=== PATIENT | female | born 1940 | race Caucasian/White ===

== ENCOUNTER → 2017-02-26 | Outpatient (CLI) | payer OTHER ==
[~2017-02-26] MED LIST: APIX1TAB3 PO; ASCA500 PO; ATV5 PO; DILT1TAB50 PO; HYG/25 PO; LOSA50TA6 PO; MULT-11 PO; PRT40 PO
== END | disposition home or self-care (01) ==
LOC: C.RDSM 09:00
PROVIDERS: ATTEND Physical Medicine & Rehabilitation Sports Medicine
DX: M79.672 Pain in left foot (principal)

== ENCOUNTER → 2017-03-27 | Day surgery (SDC) | payer OTHER ==
[2017-03-09 07:35] VITALS: Ht 158.8 cm; Wt 52.3 kg
[~2017-03-27] VITALS: Ht 158.8 cm; Wt 52.3 kg
[~2017-03-27] MED LIST changes: +ATROPINE SULFATE 0.1 MG/ML 5ML SYR IV PRN; -ATV5 PO; +BUPIVACAINE 0.5 % 5 MG/1 ML PF 10ML VIAL ONE; +DEXAMETHASONE SOD INJ 4 MG/ML VIAL ONE; +EpHEDrine SULFATE INJ 50 MG/ML AMP IV PRN; +FENTANYL CITRATE INJ 50 MCG/1 ML 2 ML VIAL IV PRN; +FENTANYL CITRATE INJ 50 MCG/1 ML 2 ML VIAL ONE; -HYG/25 PO; +LACTATED RINGER'S 1000ML 1,000 ML IV SCH; +LIDOCAINE HCL 2% LOCAL 20 ML VIAL ONE; +MIDAZOLAM HCL 1 MG/ML 2ML VIAL ONE; +ONDANSETRON INJ 2 MG/ML 2 ML VIAL IV PRN; +ONDANSETRON INJ 2 MG/ML 2 ML VIAL ONE; +PROPOFOL IV EMULSION 10 MG/ML 20 ML VIAL IV ONE; -PRT40 PO; +VANCOMYCIN INJ 750 MG in SODIUM CHLORIDE 0.9% 250ML 250 ML IV SCH
--- NOTE | 2017-03-27 08:52 | History & Physical Bridge Note ---
H&P Re-Evaluation Bridge Note: I have examined the patient, reviewed the History & Physical and in the interval since the performance of the History & Physical I have noted the following changes of clinical significance: consent reviewed and obtained.No changes noted
--- NOTE | 2017-03-27 08:54 | Discharge Instructions ---
Discharge Instructions Date of Service Mar 27, 2017. Visit Reason for Visit: Left 2ND Toe Hammer Deformity Discharge Discharge Diagnosis / Problem: same Discharge Goals Goal(s): Decrease discomfort, Improve function Medications Stopped Medications Name(s): reny stopped on sunday Restart Stopped Medication(s): resume all meds tomorrow Activity Recommendations Activity Limitations: as noted below Lifting Limitations: until after follow-up appointment Exercise/Sports Limitations: until after follow-up appointment May Resume Sexual Activity: when tolerated Shower/Bathe: keep incision dry Driving or Machine Use: no limitations Weightbearing Status: Left weightbearing (as tolerated) Anesthesia . Post Anesthesia Instructions: If you have had General Anesthesia or IV Sedation: * Do not drive today. * Resume driving when surgeon permits. * Do not make important decisions or sign legal documents today. * Call surgeon for: 1. Temperature elevations greater than 101 degrees F. 2. Uncontrollable pain. 3. Excessive bleeding. 4. Persistent nausea and vomiting. 5. Medication intolerance (nausea, vomiting or rash). * For nausea and vomiting use only clear liquids such as: tea, soda, bouillon until nausea subsides, then gradually increase diet as tolerated. * If you have any concerns or questions, call your surgeon's office. If physician is unavailable and it is an emergency, call 911 or go to the nearest emergency room. . Instructions / Follow-Up Instructions / Follow-Up DIET: * Resume previous diet. MEDICATIONS: * Please take your prescriptions as instructed at your pre-op appointment and/ or see medication discharge instructions listed above. * If concerns develop, call your physician's office at . SPECIAL CARE INSTRUCTIONS: * Ice/Elevate as instructed. * Keep dressing clean, dry, intact. * Your surgical extremity may be discolored due to prepping agents used on the skin. A bluish-green tint is a normal variant and should not cause alarm. Call your doctor at [phone] if: * Temperature above 101 degrees * Pain not relieved by pain medicine ordered * There is increased drainage or redness from any incision * You have any unanswered questions, problems or concerns. FOLLOW UP VISIT: * If not already scheduled, please call the office at to schedule a follow-up appointment. Diet Recommendations Recommended Home Diet: resume previous diet Procedures Procedures Performed: see op note Pending Studies Studies pending at discharge: yes List of pending studies: toe Medical Emergencies . Who to Call and When: Medical Emergencies: If at any time you feel your situation is an emergency, please call 911 immediately. . Non-Emergent Contact Non-Emergency issues call your: Specialist Call Non-Emergent contact if: temperature is above 100.5, wound has increased drainage, wound has increased redness, wound has increased pain . . "Provider Documentation" section prepared by Angel Payan. .
--- NOTE | 2017-03-27 10:51 | [facility] Post Operative Brief Note ---
Immediate Operative Summary Operative Date Mar 27, 2017. Pre-Operative Diagnosis Left 2nd Toe Pain Post-Operative Diagnosis Same Procedure(s) Performed Left 2nd Toe Amputation Surgeon Dr. Payan Waxer Tender Surgeon(s) Tee Ortiz PA-C Estimated Blood Loss Trace Findings fixed hammer/cross-over toe with IK Fluids (cc crystalloids) 600cc Specimens A. Left 2nd Toe Drains none Anesthesia local/sedation Complication(s) None Disposition
[2017-03-27 10:59] VITALS: TEMP 36.7
--- NOTE | 2017-03-27 11:33 | OPERATIVE REPORT ---
DATE OF OPERATION: 03/27/2017 SURGEON: Angel Payan MD BLOOD BANK ASSISTANT: Jayme Ortiz PA-C. No resident or fellow available. PREOPERATIVE DIAGNOSIS: Fixed hammer clawtoe with intractable keratosis. POSTOPERATIVE DIAGNOSIS: Same. OPERATION PERFORMED: Left second toe amputation. PERIOPERATIVE SITUATION: Medically cleared female with intractable pain and keratosis over the second toe has a fixed hammer claw toe. At this point in time wants to have it amputated. Options were discussed with her. She clearly did not want to deal with protracted recovery of trying to realign and save the toe. She had a similar procedure done on the opposite foot third toe. OPERATION: The patient appropriately identified, site verified, consent verified, 2 grams of Ancef confirmed as being given. The left lower extremity was prepped and draped in usual routine fashion. A calf tourniquet was applied and elevated and exsanguinated after the limb was exsanguinated with a rubber Esmarch bandage for a total of 6 minutes. It should be mentioned that combined volume 10 mL of 0.5% plain Marcaine was utilized for toe block. She did have some IV sedation. A longitudinal incision made. The MTP joint entered. The proximal phalanx was then skeletonized and removed. The toe was then completely amputated maintaining enough skin. Care was taken to cauterize the vessels. The tourniquet was then deflated. The wound was then assessed. There was no major bleeding. It was then closed with simple and horizontal mattress 3-0 nylon sutures and a soft tissue dressing applied and the patient transferred to the holding area in satisfactory condition having tolerated the procedure well. No specimens sent to pathology. There will be no issue with the toe being infected or anything like that. This was done purely for pain and cosmesis. I attest to the content of the Intraoperative Record and any orders documented therein. Any exception s are noted below.
[2017-03-27 11:38] VITALS: BP 117/78; PULSE 83; O2SAT 93
--- NOTE | 2017-03-27 11:57 | Anesthesia Progress Nt - [facility] ---
Anesthesia Post Op Note Date & Time Mar 27, 2017 at 11:57 Vital Signs Pain Intensity: 0 Vital Signs Past 12 Hours Date Time Temp Pulse Resp B/P (MAP) Pulse Ox O2 Delivery O2 Flow Rate FiO2 03/27/17 11:38 83 20 117/78 (91) 93 Room Air 03/27/17 10:59 36.7 76 16 122/71 (88) 97 Room Air 03/27/17 08:43 36.8 96 18 133/94 (107) 98 Room Air Notes Mental Status: alert / awake / arousable, participated in evaluation Pt Amnestic to Procedure: Yes Nausea / Vomiting: adequately controlled Pain: adequately controlled Airway Patency, RR, SpO2: stable & adequate BP & HR: stable & adequate Hydration State: stable & adequate Anesthetic Complications: no major complications apparent
--- NOTE | 2017-03-27 13:34 | [facility] Operative Report ---
Operative Report Operative Date Mar 27, 2017. Pre-Operative Diagnosis Left 2nd Toe Pain Post-Operative Diagnosis Same Procedure(s) Performed Left 2nd Toe Amputation Surgeon Dr. Payan Manager General Surgeon(s) Tee Ortiz PA-C Estimated Blood Loss Trace Findings Hammertoe left second toe Fluids (cc crystalloids) 600cc Specimens A. Left 2nd Toe Drains none Complication(s) None Disposition phase 2 recovery Indications This 76-year-old white female presented the office complaints of left foot pain at her second toe. She had an obvious deformity with an overriding second toe and hammer deformity. She previously had her second toe removed from the right foot and did well with that. She elected to proceed with the same on the left. Preoperative imaging was obtained. Description of Procedure Patient was taken to the operating room where she was given local anesthetic and sedation. She was prepped and draped in usual sterile fashion. Please see Dr. Payan's operative report for specifics of the procedure. I was present for the entire case from initial patient positioning through final wound closure. Assistance was provided in tissue traction, hemostasis, and final wound closure. Patient was taken to phase 2 recovery in satisfactory condition. I attest to the content of the Intraoperative Record and any orders documented therein. Any exceptions are noted below.
== END | disposition home or self-care (01) ==
LOC: X.SURG 08:33
PROVIDERS: ATTEND Physical Medicine & Rehabilitation Sports Medicine
DX: M20.5X2 Other deformities of toe(s) (acquired), left foot (principal); L57.0 Actinic keratosis; I10 Essential (primary) hypertension; I48.91 Unspecified atrial fibrillation; I34.1 Nonrheumatic mitral (valve) prolapse; Z89.421 Acquired absence of other right toe(s); Z87.891 Personal history of nicotine dependence; Z80.3 Family history of malignant neoplasm of breast; Z82.49 Family history of ischemic heart disease and other diseases of the circulatory system

== ENCOUNTER 2022-08-01 21:30 | Inpatient (IN) ==
--- NOTE | 2022-08-01 22:59 | XRay Report ---
SINGLE VIEW CHEST CLINICAL HISTORY: Atypical chest pain. Recent surgery. FINDINGS: An AP, portable, upright chest radiograph is compared to study dated 06/18/2022 and correlat ed with chest CT dated 05/26/2022. A 2-lead cardiac pacemaker is unchanged in position and partially o bscures the left mid chest. The heart is enlarged noting atherosclerotic calcification of the thoraci c aorta. There is pulmonary vascular congestion. Emphysema and chronic interstitial thickening is sim ilar to previous. There are small pleural effusions with left basilar consolidation. Suture material projects over the left mid lung. There is a moderate left apical pneumothorax with consolidation/atel ectasis in the left midlung. No pneumothorax is seen on the right. The skeletal structures are osteop enic. The bony thorax is grossly intact. Subcutaneous emphysema is seen in the left lower neck and th roughout the left chest wall. IMPRESSION: 1. There is a moderate left apical pneumothorax with consolidation/atelectasis in the left mid lung. 2. Cardiomegaly and cardiac pacemaker with pulmonary vascular congestion. 3. Small pleural effusions with left basilar consolidation. Correlate clinically for evidence of pneu monia/aspiration pneumonitis. 4. Emphysema with postoperative change in the left lung. 5. Subcutaneous emphysema is seen in the left lower neck and throughout the left chest wall. ACT 112: Negative or not required by law. Electronically signed by: Dallas Dhillon M.D. 08/01/2022 10:57 PM
--- NOTE | 2022-08-01 23:02 | Emergency Department Note ---
Impression & Plan Hypoxia ADMIT ED Provider Note HPI: The patient is an 81-year-old female with history of recently diagnosed adenocarcinoma of the lung, status post robotic partial lung resection on the left side that was performed this past at [facility]. Patient presents the emergency department with a chief complaint of shortness of breath that seem to worsen throughout the day today. This was occurring mostly with exertion until later this evening when she went on a walk, shortness of breath seem to be worse and then she had also at rest and therefore came to the ED to be assessed. On arrival here to the ED the patient is hypoxic at 88%, she was placed on nasal cannula oxygen with good improvement. Patient denies any chest pain, she is otherwise hemodynamically stable on arrival. ROS: - Per HPI *Outpatient medications and allergy history reviewed. *Pertinent external medical records reviewed. PE: General: Alert HEENT: Normocephalic, trachea midline Eyes: Extraocular eye movement is intact, no scleral erythema Pulmonary: Clear to auscultation on the right, diminished breath sounds on the left Cardio: Regular rate and rhythm GI: Abdomen is soft to palpation : No suprapubic tenderness MSK: No evidence of trauma or malformation of the extremities, no edema Skin: No evidence of rash Neuro: Alert, no focal deficits Psychiatric: Cooperative cardiac monitor technician: (As interpreted by myself): - An order was placed for continuous cardiac monitoring - Patient was noted to be in sinus rhythm with a rate of 75 EKG: (As interpreted by myself): Rate: 104 Rhythm: Atrial fibrillation Intervals: Within normal limits ST changes: No ST elevation Time: 2215 Interventions provided in ED: -Supplemental oxygen Differential Diagnosis: Pulmonary embolism, pneumothorax, hemothorax, acute coronary syndrome, pneumonia, pleural effusion, amongst other potential pathologies. Medical Decision Making: Patient presented to the emergency department with shortness of breath. This is in the setting of recent surgery that was performed on 07/27 at [facility] by Dr. Herrmann. On arrival here to the ED the patient was hypoxic at 88%, placed on nasal cannula oxygen with good improvement. Chest x-ray was obtained shortly after the patient arrived, shows evidence of a left-sided apical pneumothorax, patient surgery was on the left apical area of the lung where she was noted to have the adenocarcinoma, CT imaging of the chest without contrast was obtained to further assess the area of concern, this does show evidence of approximately 40% hydropneumothorax. No evidence of midline shift, mild pneumomediastinum noted. Unclear how much of this may be expected postoperatively, there is also extensive subcutaneous emphysema in the lateral chest wall and near the apex of the area that used to be the left lung. This is not grossly obvious on my exam visually but patient does have some crepitus in this area with palpation. Patient's lab work otherwise shows no leukocytosis, hemoglobin is stable, platelet count is within normal limits. VBG shows a normal pH without elevation in PCO2, mild elevation in troponin level at 19.0, hyponatremia noted at 123, mild elevation in BNP at 327. Case was discussed with on-call thoracic surgery at [facility], Dr. De Dios, at this time recommends the patient be admitted for observation and repeat imaging overnight to assess for improvement potentially in the area of concern causing the hydro/pneumothorax. At this time recommends against pigtail catheter placement prior to obtaining repeat imaging overnight as the patient is currently on Eliquis and some of these findings may be expected postoperatively. At this time Dr. De Dios does not recommend emergent transfer, thinks it would be better for the patient to be here on the monitor for assessment of respiratory status overnight with plan to place pigtail catheter if her respiratory status were to worsen or if pneumothorax increased in size overnight. Case was discussed with the on-call midlevel provider for the ICU, Juarez Larios NP, also therefore discussed with the on-call hospitalist, Dr. Laguerre. At this time plan will be for the patient to be admitted to the ICU for observation overnight, will plan for repeat imaging in the morning and close observation of the patient's oxygen status and respiratory status with plan for placement of pigtail catheter if there is any evidence of decompensation. Patient states she did take her Eliquis dose this past evening. I discussed all the above findings with the patient and her at the bedside, they are in agreement for admission here at [facility]. Patient was placed for admission in stable condition for further management. Consultants: -Critical care, Dr. Mclain/Juarez Larios [employer] -Cardiothoracic surgery at [facility], Dr. De Dios -Hospitalist, Dr. Laguerre Disposition discussion held by myself with: Patient and at the bedside * CRITICAL CARE TIME: (75) minutes -Stabilization of hypoxia with oxygen saturation at 88% on room air requiring supplemental oxygen for correction, time spent at the bedside, discussion with multiple consulting physicians including hospitalist and cardiothoracic surgery at tertiary care center, consultation with critical care nurse practitioner and arrangement of admission Diagnosis: 1. Hypoxia, acute 2. Hydropneumothorax, left-sided, postoperative 3. Subcutaneous emphysema of left-sided chest wall, acute, postoperative 4. Elevated high-sensitivity troponin level, mild 5. Hyponatremia, acute, nonspecific 6. History of atrial fibrillation, on anticoagulation Disposition: Admission Carlos Looney DO Emergency Medicine Past Med/Surg History Medical History (Updated 08/02/22 @ 01:57 by CHANCE Chang) Atrial fibrillation on eliquis; follows with Dr. Gómez & Dr. Abreu Family history of colon cancer GERD (gastroesophageal reflux disease) History of breast cancer dx'd 2019 - right breast - hx lumpectomy + radiation History of migraine HTN (hypertension) Hyperlipidemia IBS (irritable bowel syndrome) Osteoporosis Scoliosis SVT (supraventricular tachycardia) Surgical History (Updated 08/02/22 @ 01:53 by CHANCE Chang) H/O breast surgery History of appendectomy History of cardiac radiofrequency ablation x 2 History of colonoscopy History of esophagogastroduodenoscopy (EGD) S/P bunionectomy S/P cardiac pacemaker procedure 2014 - A.fib - [facility] - last check 02/2021 per pt S/P eye surgery macular hole Status post lobectomy of lung Family History Mother Breast cancer Colorectal cancer Aunt Breast cancer Colorectal cancer Sister Breast cancer Colorectal cancer Father Myocardial infarction Other Family history of colon cancer No family history of adverse response to anesthesia Denies family history of Ovarian cancer Prostate cancer Social History Smoking Status: Former smoker packs per day: 0.5; Cigarettes Per Day: 20 yr for 1/5 pack per day; Smoking End Date: 35 years ago; Second Hand Exposure: No; Hx Alcohol Use: Yes Alcohol type: wine Alcohol Intake Frequency Comment: social Hx Substance Use: No Preferred Language: Romanian Communication Ability: Effective Visual Impairment: No Limitations Hearing Ability: Normal Materials Inspector Required: No Beliefs That Will Affect Care: None marital status: Current Living Situation: Spouse Feels Safe at Home: Yes Safety Concerns: Feels Safe At This Time Seatbelt Use: always Assistive Devices: Glasses Allergies Allergies Allergy/AdvReac Type Severity Reaction Status Date / Time Penicillins AdvReac Intermediate GI UPSET Verified 08/01/22 23:56 Home Meds Home Medications Medication Instructions Recorded Confirmed apixaban 5 mg tablet (Eliquis) 5 mg PO BID 09/27/21 08/02/22 losartan 50 mg tablet 50 mg PO DAILY 04/18/22 08/02/22 acetaminophen 500 mg tablet 1,000 mg PO Q8H 08/01/22 08/02/22 (Tylenol Extra Strength) gabapentin 300 mg capsule 300 mg PO TID 08/01/22 08/02/22 multivitamin 1 tab PO DAILY 08/01/22 08/02/22 naproxen 250 mg tablet 250 mg PO BID 08/01/22 08/02/22 oxycodone 5 mg tablet 2.5 mg PO Q4H PRN Pain (Scale 08/01/22 08/02/22 Score 4-6) sennosides 8.6 mg-docusate sodium 1 tab-cap PO BID 08/01/22 08/02/22 50 mg capsule (Senna Plus) mupirocin 2 % topical ointment 1 applic topical BID PRN Skin 08/02/22 08/02/22 Irritation Previous Rx's Medication Instructions Recorded brinzolamide 1 %-brimonidine 0.2 % 1 drp ophthalmic (eye) BID #8 mL 09/27/21 eye drops,suspension (Simbrinza) rosuvastatin 20 mg tablet 20 mg PO QPM #90 tabs 01/31/22 diltiazem HCl 120 mg 120 mg PO DAILY #90 caps 05/24/22 capsule,extended release 24 hr Results & Data (ED) Vital Signs Vital Signs - 24 hr 08/01/22 21:39 08/01/22 22:15 08/02/22 00:00 Temperature 36.9 C Temperature Source Temporal Artery Scan Pulse Rate 93 H Pulse Rate [Finger] 85 Pulse Rate from SpO2 Sensor Respiratory Rate 18 18 Respiratory Depth Normal Blood Pressure 170/109 H Blood Pressure [Right Arm] 171/95 H Blood Pressure Mean 129 Blood Pressure Mean [Right Arm] 120 Pulse Oximetry 88 L 78 L 95 Oxygen Delivery Method Room Air Room Air Nasal Cannula Oxygen Flow Rate 0 4 Sepsis Recent Fever Within 48 Hours No Sepsis New/Unexplained Change in Mental Status N/A Sepsis Action Taken by Nursing No Action Required Oxygen Flow Rate - Titration 4 Pulse Oximetry Post Tiitration 96 08/02/22 00:08 08/02/22 00:07 08/02/22 00:08 Temperature Temperature Source Pulse Rate 87 Pulse Rate [Finger] Pulse Rate from SpO2 Sensor 83 Respiratory Rate 20 Respiratory Depth Blood Pressure Blood Pressure [Right Arm] Blood Pressure Mean Blood Pressure Mean [Right Arm] Pulse Oximetry 94 94 Oxygen Delivery Method Nasal Cannula Oxygen Flow Rate 4 Sepsis Recent Fever Within 48 Hours Sepsis New/Unexplained Change in Mental Status Sepsis Action Taken by Nursing Oxygen Flow Rate - Titration Pulse Oximetry Post Tiitration 08/02/22 00:15 08/02/22 00:30 08/02/22 00:30 Temperature Temperature Source Pulse Rate 82 Pulse Rate [Finger] Pulse Rate from SpO2 Sensor 83 77 Respiratory Rate 26 H 18 Respiratory Depth Blood Pressure 157/97 H Blood Pressure [Right Arm] Blood Pressure Mean 117 Blood Pressure Mean [Right Arm] Pulse Oximetry 94 93 Oxygen Delivery Method Oxygen Flow Rate Sepsis Recent Fever Within 48 Hours Sepsis New/Unexplained Change in Mental Status Sepsis Action Taken by Nursing Oxygen Flow Rate - Titration Pulse Oximetry Post Tiitration 08/02/22 00:45 Temperature Temperature Source Pulse Rate 71 Pulse Rate [Finger] Pulse Rate from SpO2 Sensor 77 Respiratory Rate 15 Respiratory Depth Blood Pressure Blood Pressure [Right Arm] Blood Pressure Mean Blood Pressure Mean [Right Arm] Pulse Oximetry 93 Oxygen Delivery Method Oxygen Flow Rate Sepsis Recent Fever Within 48 Hours Sepsis New/Unexplained Change in Mental Status Sepsis Action Taken by Nursing Oxygen Flow Rate - Titration Pulse Oximetry Post Tiitration Laboratory Data 08/01/22 22:30 08/01/22 22:30 Lab Results 08/01/22 08/01/22 08/01/22 Range/Units 22:30 22:30 22:30 WBC 5.88 (4.8-10.8) K/ul RBC 3.59 L (4.20-5.40) M/uL Hgb 12.7 (12.0-16.0) g/dl Hct 35.3 L (37.0-47.0) % MCV 98.3 (80.0-100.0) fL MCH 35.4 H (25.0-34.0) pg MCHC 36.0 (32.0-36.0) g/dL RDW Std Deviation 48.6 H (36.4-46.3) fL RDW Coeff of [place] 13.3 (11.5-14.5) % Plt Count 156 (130-400) K/uL MPV 9.5 (9.4-12.4) fL Immature Gran % (Auto) 0.5 % Neut % (Auto) 74.8 % Lymph % (Auto) 10.9 % Edgar % (Auto) 10.4 % Eos % (Auto) 3.2 % Baso % (Auto) 0.2 % Neut # (Auto) 4.40 (1.40-6.50) K/uL Lymph # (Auto) 0.64 L (1.2-3.4) K/uL Edgar # (Auto) 0.61 H (0.11-0.59) K/uL Eos # (Auto) 0.19 (0-0.50) K/uL Baso # (Auto) 0.01 (0-0.2) K/uL Immature Gran # (Auto) 0.03 (0.01-0.20) K/uL PT 12.0 (9.0-12.0) Seconds INR 1.1 (0.9-1.1) APTT 34.2 H (21.0-31.0) Seconds PTT Ratio 1.2 VBG pH (7.36-7.41) VBG pCO2 (38-50) mmHg VBG pO2 mmHg VBG HCO3 mmol/L VBG O2 Saturation % VBG Base Excess mEq/L Sodium 123 L (136-145) mmol/L Potassium 4.3 (3.5-5.1) mmol/L Chloride 92 L (98-107) mmol/L Carbon Dioxide 25 (21-32) mmol/L Anion Gap 6 (3-11) BUN 15 (6-23) mg/dl Creatinine 0.58 L (0.6-1.2) mg/dl Est Cr Clr Drug Dosing 55.5 ml/min Est GFR ( Amer) 98.8 ml/min Est GFR (Non-Af Amer) 85.2 ml/min BUN/Creatinine Ratio 25.9 H (10-20) Glucose 95 (70-99(Fasting)) mg/dl Osmolality (280-300) mOsm/kg Calcium 9.0 (8.6-10.3) mg/dl Magnesium 1.6 L (1.7-2.4) mg/dl Total Bilirubin 0.7 (0.2-1.0) mg/dl AST 42 H (13-39) U/L ALT 34 (7-52) U/L Alkaline Phosphatase 115 H (34-104) U/L Troponin I High Sens 19.0 H (0-14) pg/ml B-Natriuretic Peptide (0-100) pg/ml Total Protein 5.5 L (6.0-8.3) gm/dl Albumin 3.4 (3.4-5.0) gm/dl Globulin 2.1 L (2.5-4.0) gm/dl Albumin/Globulin Ratio 1.6 (0.9-2) SARS-CoV-2 (PCR) (Negative) Influenza Type A (PCR) (Neg) Influenza Type B (PCR) (Neg) RSV (RT-PCR) (Neg) 08/01/22 08/01/22 08/01/22 Range/Units 22:30 22:30 22:30 WBC (4.8-10.8) K/ul RBC (4.20-5.40) M/uL Hgb (12.0-16.0) g/dl Hct (37.0-47.0) % MCV (80.0-100.0) fL MCH (25.0-34.0) pg MCHC (32.0-36.0) g/dL RDW Std Deviation (36.4-46.3) fL RDW Coeff of [place] (11.5-14.5) % Plt Count (130-400) K/uL MPV (9.4-12.4) fL Immature Gran % (Auto) % Neut % (Auto) % Lymph % (Auto) % Edgar % (Auto) % Eos % (Auto) % Baso % (Auto) % Neut # (Auto) (1.40-6.50) K/uL Lymph # (Auto) (1.2-3.4) K/uL Edgar # (Auto) (0.11-0.59) K/uL Eos # (Auto) (0-0.50) K/uL Baso # (Auto) (0-0.2) K/uL Immature Gran # (Auto) (0.01-0.20) K/uL PT (9.0-12.0) Seconds INR (0.9-1.1) APTT (21.0-31.0) Seconds PTT Ratio VBG pH (7.36-7.41) VBG pCO2 (38-50) mmHg VBG pO2 mmHg VBG HCO3 mmol/L VBG O2 Saturation % VBG Base Excess mEq/L Sodium (136-145) mmol/L Potassium (3.5-5.1) mmol/L Chloride (98-107) mmol/L Carbon Dioxide (21-32) mmol/L Anion Gap (3-11) BUN (6-23) mg/dl Creatinine (0.6-1.2) mg/dl Est Cr Clr Drug Dosing ml/min Est GFR ( Amer) ml/min Est GFR (Non-Af Amer) ml/min BUN/Creatinine Ratio (10-20) Glucose (70-99(Fasting)) mg/dl Osmolality 263 L (280-300) mOsm/kg Calcium (8.6-10.3) mg/dl Magnesium (1.7-2.4) mg/dl Total Bilirubin (0.2-1.0) mg/dl AST (13-39) U/L ALT (7-52) U/L Alkaline Phosphatase (34-104) U/L Troponin I High Sens (0-14) pg/ml B-Natriuretic Peptide 327 H (0-100) pg/ml Total Protein (6.0-8.3) gm/dl Albumin (3.4-5.0) gm/dl Globulin (2.5-4.0) gm/dl Albumin/Globulin Ratio (0.9-2) SARS-CoV-2 (PCR) NEGATIVE (Negative) Influenza Type A (PCR) Negative (Neg) Influenza Type B (PCR) Negative (Neg) RSV (RT-PCR) Negative (Neg) 08/01/22 Range/Units 23:00 WBC (4.8-10.8) K/ul RBC (4.20-5.40) M/uL Hgb (12.0-16.0) g/dl Hct (37.0-47.0) % MCV (80.0-100.0) fL MCH (25.0-34.0) pg MCHC (32.0-36.0) g/dL RDW Std Deviation (36.4-46.3) fL RDW Coeff of [place] (11.5-14.5) % Plt Count (130-400) K/uL MPV (9.4-12.4) fL Immature Gran % (Auto) % Neut % (Auto) % Lymph % (Auto) % Edgar % (Auto) % Eos % (Auto) % Baso % (Auto) % Neut # (Auto) (1.40-6.50) K/uL Lymph # (Auto) (1.2-3.4) K/uL Edgar # (Auto) (0.11-0.59) K/uL Eos # (Auto) (0-0.50) K/uL Baso # (Auto) (0-0.2) K/uL Immature Gran # (Auto) (0.01-0.20) K/uL PT (9.0-12.0) Seconds INR (0.9-1.1) APTT (21.0-31.0) Seconds PTT Ratio VBG pH 7.39 (7.36-7.41) VBG pCO2 42 (38-50) mmHg VBG pO2 39 mmHg VBG HCO3 25 mmol/L VBG O2 Saturation 66.9 % VBG Base Excess 0.3 mEq/L Sodium (136-145) mmol/L Potassium (3.5-5.1) mmol/L Chloride (98-107) mmol/L Carbon Dioxide (21-32) mmol/L Anion Gap (3-11) BUN (6-23) mg/dl Creatinine (0.6-1.2) mg/dl Est Cr Clr Drug Dosing ml/min Est GFR ( Amer) ml/min Est GFR (Non-Af Amer) ml/min BUN/Creatinine Ratio (10-20) Glucose (70-99(Fasting)) mg/dl Osmolality (280-300) mOsm/kg Calcium (8.6-10.3) mg/dl Magnesium (1.7-2.4) mg/dl Total Bilirubin (0.2-1.0) mg/dl AST (13-39) U/L ALT (7-52) U/L Alkaline Phosphatase (34-104) U/L Troponin I High Sens (0-14) pg/ml B-Natriuretic Peptide (0-100) pg/ml Total Protein (6.0-8.3) gm/dl Albumin (3.4-5.0) gm/dl Globulin (2.5-4.0) gm/dl Albumin/Globulin Ratio (0.9-2) SARS-CoV-2 (PCR) (Negative) Influenza Type A (PCR) (Neg) Influenza Type B (PCR) (Neg) RSV (RT-PCR) (Neg) Imaging Data Radiologist's Impression: Chest X-Ray 08/01/22 21:42 SINGLE VIEW CHEST CLINICAL HISTORY: Atypical chest pain. Recent surgery. FINDINGS: An AP, portable, upright chest radiograph is compared to study dated 06/18/2022 and correlated with chest CT dated 05/26/2022. A 2-lead cardiac pacemaker is unchanged in position and partially obscures the left mid chest. The heart is enlarged noting atherosclerotic calcification of the thoracic aorta. There is pulmonary vascular congestion. Emphysema and chronic interstitial thickening is similar to previous. There are small pleural effusions with left basilar consolidation. Suture material projects over the left mid lung. There is a moderate left apical pneumothorax with consolidation/atelectasis in the left midlung. No pneumothorax is seen on the right. The skeletal structures are osteopenic. The bony thorax is grossly intac t. Subcutaneous emphysema is seen in the left lower neck and throughout the left chest wall. IMPRESSION: 1. There is a moderate left apical pneumothorax with consolidation/atelectasis in the left mid lung. 2. Cardiomegaly and cardiac pacemaker with pulmonary vascular congestion. 3. Small pleural effusions with left basilar consolidation. Correlate clinically for evidence of pneumonia/aspiration pneumonitis. 4. Emphysema with postoperative change in the left lung. 5. Subcutaneous emphysema is seen in the left lower neck and throughout the left chest wall. ACT 112: Negative or not required by law. Electronically signed by: Dallas Dhillon M.D. 08/01/2022 10:[address] 08/01/22 23:04 Exam(s): CT CHEST Without Contrast EXAM: CT Chest Without Intravenous Contrast CLINICAL HISTORY: Reason for exam: Eval L sided PTX, recent VATS, SOB. TECHNIQUE: Axial computed tomography images of the chest without intravenous contrast. CTDI is 5.7 mGy and DLP is 191.06 mGy-cm. Automated exposure control was utilized for the study. A dose lowering technique was utilized adhering to the principles of ALARA. COMPARISON: CT chest 05/26/22 FINDINGS: Patient has undergone recent thoracotomy with wedge resection of the left upper lobe. There is a comminuted fracture of posterior left rib 8, likely related to recent thoracotomy. There is a staple line in the left upper lobe with surrounding region of consolidation. Previously seen sub-solid nodule is no longer visualized. There is a 40-50% left hydropneumothorax without mediastinal shift. Compressive atelectasis is present in the left lower lobe. There is extensive subcutaneous emphysema in the left chest wall. There is a small layering right pleural effusion with right basilar atelectasis. There is a background of centrilobular emphysema. Calcified granuloma is noted in the left lower lobe. There is a left chest wall dual-lead AICD-pacemaker. Heart is enlarged. Coronary arteries are calcified. There is no significant pericardial effusion. Thoracic aorta is calcified but normal in caliber. Main pulmonary artery is normal in caliber. No lymphadenopathy is seen. There is mild pneumomediastinum. Aside from the comminuted fracture posterior left rib 8, no acute osseous findings are visualized. IMPRESSION: 1. Status post left thoracotomy and wedge resection of the left upper lobe. 2. Approximately 40-50% left hydropneumothorax without mediastinal shift. Extensive left chest wall emphysema. Mild pneumomediastinum. 3. Small right pleural effusion. 4. Bibasilar atelectasis. 5. Emphysema. Electronically signed by: Trip Hunter M.D. 08/01/22 23:55 PM Discharge Plan Visit Data Chief Complaint: Respiratory Problems Stated Complaint: TROUBLE BREATHING,SWELLING IN FEET/LEGS,SX LAST [facility] ED Provider: Carlos Looney Discharge Problem: Hypoxia Patient Disposition: Admitted As Inpatient Discharge Instructions Interventions: ED Discharge Assessment Last Done: 08/02/22 01:35
[2022-08-01 23:10] LABS: Basophils # (auto) 0.01 K/uL (0-0.2); Basophils % (auto) 0.2 %; Eosinophils # (auto) 0.19 K/uL (0-0.50); Eosinophils % (auto) 3.2 %; Hematocrit (blood only) 35.3 % (37.0-47.0); Hemoglobin 12.7 g/dl (12.0-16.0); Immature Granulocytes # (auto) 0.03 K/uL (0.01-0.20); Immature Granulocytes % (auto) 0.5 %; Lymphocytes # (auto) 0.64 K/uL (1.2-3.4); Lymphocytes % (auto) 10.9 %; Mean Corpuscular Hemoglobin 35.4 pg (25.0-34.0); Mean Corpuscular Volume 98.3 fL (80.0-100.0); Mean Platelet Volume 9.5 fL (9.4-12.4); Monocytes # (auto) 0.61 K/uL (0.11-0.59); Monocytes % (auto) 10.4 %; Neutrophils % (auto) 74.8 %; Platelet Count 156 K/uL (130-400); RDW Coefficient of Variation 13.3 % (11.5-14.5); RDW Standard Deviation 48.6 fL (36.4-46.3); Red Blood Count 3.59 M/uL (4.20-5.40); White Blood Count 5.88 K/ul (4.8-10.8)
[2022-08-01 23:12] LABS: Base Excess VBG 0.3 mEq/L; HCO3 VBG 25 mmol/L; Oxygen Saturation VBG 66.9 %; PCO2 VBG 42 mmHg (38-50); PO2 VBG 39 mmHg; pH VBG 7.39 (7.36-7.41)
[2022-08-01 23:29] LABS: Albumin Globulin Ratio 1.6 (0.9-2); Albumin Level 3.4 gm/dl (3.4-5.0); BUN Creatinine Ratio 25.9 (10-20); Bilirubin,Total 0.7 mg/dl (0.2-1.0); Creatinine Clr Calc Pharmacy 55.5 ml/min; Est GFR (African American) 98.8 ml/min; Est GFR (Non-African American) 85.2 ml/min; Globulin 2.1 gm/dl (2.5-4.0); Potassium 4.3 mmol/L (3.5-5.1); Total Protein 5.5 gm/dl (6.0-8.3)
[2022-08-01 23:39] LABS: INR 1.1 (0.9-1.1); Partial Thromboplastin Ratio 1.2; Partial Thromboplastin Time 34.2 Seconds (21.0-31.0)
[2022-08-01 23:44] LABS: Influenza A virus by PCR Negative (Neg); Influenza B virus by PCR Negative (Neg); RSV by PCR Negative (Neg); SARS CoV2 RNA(COVID-19) Ceph NEGATIVE (Negative)
--- NOTE | 2022-08-01 23:56 | CT Scan Report ---
Exam(s): CT CHEST Without Contrast EXAM: CT Chest Without Intravenous Contrast CLINICAL HISTORY: Reason for exam: Eval L sided PTX, recent VATS, SOB. TECHNIQUE: Axial computed tomography images of the chest without intravenous contrast. CTDI is 5.7 mGy and DLP is 191.06 mGy-cm. Automated exposure control was utilized for the study. A dose lowering technique was utilized adhering to the principles of ALARA. COMPARISON: CT chest 05/26/22 FINDINGS: Patient has undergone recent thoracotomy with wedge resection of the left upper lobe. There is a comminuted fracture of posterior left rib 8, likely related to recent thoracotomy. There is a staple line in the left upper lobe with surrounding region of consolidation. Previously seen sub-solid nodule is no longer visualized. There is a 40-50% left hydropneumothorax without mediastinal shift. Compressive atelectasis is present in the left lower lobe. There is extensive subcutaneous emphysema in the left chest wall. There is a small layering right pleural effusion with right basilar atelectasis. There is a background of centrilobular emphysema. Calcified granuloma is noted in the left lower lobe. There is a left chest wall dual-lead AICD-pacemaker. Heart is enlarged. Coronary arteries are calcified. There is no significant pericardial effusion. Thoracic aorta is calcified but normal in caliber. Main pulmonary artery is normal in caliber. No lymphadenopathy is seen. There is mild pneumomediastinum. Aside from the comminuted fracture posterior left rib 8, no acute osseous findings are visualized. IMPRESSION: 1. Status post left thoracotomy and wedge resection of the left upper lobe. 2. Approximately 40-50% left hydropneumothorax without mediastinal shift. Extensive left chest wall emphysema. Mild pneumomediastinum. 3. Small right pleural effusion. 4. Bibasilar atelectasis. 5. Emphysema. Electronically signed by: Trip Hunter M.D. 08/01/22 23:55 PM
--- NOTE | 2022-08-02 00:57 | History & Physical Report ---
Date of Service August 02, 2022 Assessment & Plan (1) Acute pneumothorax: Plan: 81-year-old female with history of left upper lobe lung adenocarcinoma s/p robotic assisted left upper lobe trisegmentectomy and mediastinal lymphadenectomy performed at [facility] 07/27/2022 presenting with acute shortness of breath. Acute hypoxic respiratory failure upon arrival with saturation of 70% on room air requiring supplemental oxygen. Presently with appropriate saturation on [address] of the chest with results aboveextensive hydropneumothorax. Patient hemodynamically stable. No mediastinal shift. No clinical concern for tension physiology at this time. Subcutaneous emphysema present per physical exam. Patient reports this was present prior to discharge. She is uncertain what extent or if it has been worsening. No significant pain at this time. Patient reports that dyspnea has improved. Admit to medical ICU Continue supplemental oxygen 100% nonrebreather AP/lateral chest x-ray in the morning to assess pneumothorax -continued oxygen supplementation versus chest tube placement? (2) Hyponatremia: Plan: Sodium = 123. Has been low in the past, most recently 05/21/2022 sodium = 133. Asymptomatic. Patient reports she is eating fairly well at home Check urine and serum osmolality Fluid restriction Repeat chemistry (3) Atrial fibrillation: Plan: Rate controlled. Patient anticoagulated on Eliquis. Last dose this evening. Continue diltiazem 120 mg p.o. daily Hold Eliquis for possible procedure (4) HTN (hypertension): Plan: Blood pressure mildly elevated We will hold antihypertensives for now, losartan Continue to monitor (5) Hyperlipidemia: Plan: Chronic. Continue Crestor 20 mg p.o. every afternoon F/E/NHep-Lock, magnesium repletion 3 g ordered, n.p.o. for now ProphylaxisSCDs to bilateral lower extremities Codefull per discussion with patient Dispositionadmit to medical ICU History of Present Illness Chief Complaint: Shortness of Primary Care Provider: Vilma Contreras MD Rebekah Romero is an 81-year-old female presenting with shortness of breath. Patient with left upper lobe adenocarcinoma of the lung which was discovered in April 2022. She underwent a robotic assisted left upper lobe trisegmentectomy and mediastinal lymphadenectomy performed by Dr. Herrmann at [facility] on 07/27/2022. The surgery was well-tolerated. Patient had a chest tube in place postoperatively which was removed on 07/29/2022. Patient was discharged home in stable condition on 07/29/2022. She did note that she had subcutaneous air at her left neck which her care team was aware of as well. Patient presents this evening with complaint of bilateral lower extremity edema as well as shortness of breath and dyspnea on exertion. She denies chest pain, neck pain, difficulty swallowing, cough or hoarseness. Denies fevers, chills, abdominal pain, nausea, vomiting, diarrhea, constipation. Patient hypoxic upon arrival at 70% on room air. She was placed on supplemental oxygen and is currently 94% on oxy mask. CT scan of the chest with results belowin summation reveal postoperative changes of left thoracotomy and wedge resection of the left upper lobe with 40 to 50% left hydropneumothorax without mediastinal shift as well as extensive left wall emphysema and mild pneumomediastinum. ER course: Supplemental oxygen Allergies Allergy/AdvReac Type Severity Reaction Status Date / Time Penicillins AdvReac Intermediate GI UPSET Verified 08/01/22 23:56 Home Medications Medication Instructions Recorded Confirmed Type apixaban 5 mg tablet (Eliquis) 5 mg PO BID 09/27/21 08/02/22 History brinzolamide 1 %-brimonidine 0.2 % 1 drp ophthalmic (eye) BID #8 mL 09/27/21 08/02/22 Rx eye drops,suspension (Simbrinza) rosuvastatin 20 mg tablet 20 mg PO QPM #90 tabs 01/31/22 08/02/22 Rx losartan 50 mg tablet 50 mg PO DAILY 04/18/22 08/02/22 History diltiazem HCl 120 mg 120 mg PO DAILY #90 caps 05/24/22 08/02/22 Rx capsule,extended release 24 hr acetaminophen 500 mg tablet 1,000 mg PO Q8H 08/01/22 08/02/22 History (Tylenol Extra Strength) gabapentin 300 mg capsule 300 mg PO TID 08/01/22 08/02/22 History multivitamin 1 tab PO DAILY 08/01/22 08/02/22 History naproxen 250 mg tablet 250 mg PO BID 08/01/22 08/02/22 History oxycodone 5 mg tablet 2.5 mg PO Q4H PRN Pain (Scale 08/01/22 08/02/22 History Score 4-6) sennosides 8.6 mg-docusate sodium 1 tab-cap PO BID 08/01/22 08/02/22 History 50 mg capsule (Senna Plus) mupirocin 2 % topical ointment 1 applic topical BID PRN Skin 08/02/22 08/02/22 History Irritation Past Med/Surg History Medical History Atrial fibrillation on eliquis; follows with Dr. Gómez & Dr. Abreu Family history of colon cancer GERD (gastroesophageal reflux disease) History of breast cancer dx'd 2019 - right breast - hx lumpectomy + radiation History of migraine HTN (hypertension) Hyperlipidemia IBS (irritable bowel syndrome) Osteoporosis Scoliosis SVT (supraventricular tachycardia) Surgical History H/O breast surgery History of appendectomy History of cardiac radiofrequency ablation x 2 History of colonoscopy History of esophagogastroduodenoscopy (EGD) S/P bunionectomy S/P cardiac pacemaker procedure 2014 - A.fib - [facility] - last check 02/2021 per pt S/P eye surgery macular hole Status post lobectomy of lung Family History Mother Breast cancer Colorectal cancer Aunt Breast cancer Colorectal cancer Sister Breast cancer Colorectal cancer Father Myocardial infarction Other Family history of colon cancer No family history of adverse response to anesthesia Denies family history of Ovarian cancer Prostate cancer Social History Smoking Status: Former smoker packs per day: 0.5; Cigarettes Per Day: 20 yr for 1/5 pack per day; Smoking End Date: 35 years ago; Second Hand Exposure: No; Hx Alcohol Use: Yes Alcohol type: wine Alcohol Intake Frequency Comment: social Hx Substance Use: No Preferred Language: Turkish Communication Ability: Effective Visual Impairment: No Limitations Hearing Ability: Normal Production Control Coordinator Required: No Beliefs That Will Affect Care: None marital status: Current Living Situation: Spouse Feels Safe at Home: Yes Safety Concerns: Feels Safe At This Time Seatbelt Use: always Assistive Devices: Glasses Review of Systems Review of Systems: All systems reviewed & are unremarkable except as noted in HPI & below Physical Exam Physical Exam: General: patient resting comfortably, NAD, non-toxic in appearance, AA&O x 4 Skin: warm, dry, intact, no rashes or lesions HEENT: NC/AT, PERRL, EOMI, anicteric sclera, conjunctiva without injection, external ear normal to inspection and nontender, nares patent, moist mucus memb ranes, dentition intact, no oropharyngeal lesions, neck supple, trachea midline, no LAD, no thyromegaly, no JVD Heart: +S1/S2, irregularly irregular, no murmur/rub/gallop Lungs: Normal chest wall mechanics, diminished breath sounds left upper lobe to approximately mid lung field with crackles in left base, no wheezing. Surgical entry points well approximated with no bleeding, drainage, erythema or dehiscence. Extensive subcutaneous emphysema appreciated left neck, anterior chest wall, lateral chest and back Abd: +BS, soft, NT/ND, no masses/organomegaly/ascites Ext: warm, 2+ pulses in UE/LE bilaterally, no clubbing/cyanosis, 2+ pitting edema bilateral lower extremities Neuro: nonfocal, patient AA&O x 4, speech intact, no facial droop, moving all extremities on command with equal strength 5/5 Results & Data Results & Data Vital Signs (Past 12 Hours) Vital Signs Temp Pulse Pulse Resp BP BP Pulse Ox 08/02/22 00:07 87 08/02/22 00:08 94 08/02/22 00:00 85 18 171/95 H 95 08/01/22 22:15 78 L 08/01/22 21:39 36.9 C 93 H 18 170/109 H 88 L O2 Del Method O2 Flow Rate 08/02/22 00:07 08/02/22 00:08 Nasal Cannula 4 08/02/22 00:00 Nasal Cannula 4 08/01/22 22:15 Room Air 0 08/01/22 21:39 Room Air Laboratory Results Laboratory Results WBC 5.88 K/ul (4.8-10.8) 08/01/22 22:30 RBC 3.59 M/uL (4.20-5.40) L 08/01/22 22:30 Hgb 12.7 g/dl (12.0-16.0) 08/01/22 22:30 Hct 35.3 % (37.0-47.0) L 08/01/22 22: MCV 98.3 fL (80.0-100.0) 08/01/22: MCH 35.4 pg (25.0-34.0) H 08/01/22: MCHC 36.0 g/dL (32.0-36.0) 08/01/22: RDW Std Deviation 48.6 fL (36.4-46.3) H 08/01/22: RDW Coeff of [place] 13.3 % (11.5-14.5) 08/01/22: Plt Count 156 K/uL (130-400) 08/01/22: MPV 9.5 fL (9.4-12.4) 08/01/22: Immature Gran % (Auto) 0.5 % 08/01/22: Neut % (Auto) 74.8 % 08/01/22: Lymph % (Auto) 10.9 % 08/01/22: [place] % (Auto) 10.4 % 08/01/22: Eos % (Auto) 3.2 % 08/01/22: Baso % (Auto) 0.2 % 08/01/22: Neut # (Auto) 4.40 K/uL (1.40-6.50) 08/01/22: Lymph # (Auto) 0.64 K/uL (1.2-3.4) L 08/01/22: [place] # (Auto) 0.61 K/uL (0.11-0.59) H 08/01/22 22:30 Eos # (Auto) 0.19 K/uL (0-0.50) 08/01/22: Baso # (Auto) 0.01 K/uL (0-0.2) 08/01/22: Immature Gran # (Auto) 0.03 K/uL (0.01-0.20) 08/01/22: PT 12.0 Seconds (9.0-12.0) 08/01/22: INR 1.1 (0.9-1.1) 04/04/23 22:30 APTT 34.2 Seconds (21.0-31.0) H 08/01/22 22:30 PTT Ratio 1.2 08/01/22 22:30 VBG pH 7.39 (7.36-7.41) 08/01/22 23:00 VBG pCO2 42 mmHg (38-50) 08/01/22 23:00 VBG pO2 39 mmHg 08/01/22 23:00 VBG HCO3 25 mmol/L 08/01/22 23:00 VBG O2 Saturation 66.9 % 08/01/22 23:00 VBG Base Excess 0.3 mEq/L 08/01/22 23:00 Sodium 123 mmol/L (136-145) L 08/01/22 22:30 Potassium 4.3 mmol/L (3.5-5.1) 08/01/22 22:30 Chloride 92 mmol/L (98-107) L 08/01/22 22:30 Carbon Dioxide 25 mmol/L (21-32) 08/01/22 22:30 Anion Gap 6 (3-11) 08/01/22 22:30 BUN 15 mg/dl (6-23) 08/01/22 22:30 Creatinine 0.58 mg/dl (0.6-1.2) L 08/01/22 22:30 Est Cr Clr Drug Dosing 55.5 ml/min 08/01/22 22:30 Est GFR ( Amer) 98.8 ml/min 08/01/22 22:30 Est GFR (Non-Af Amer) 85.2 ml/min 08/01/22 22:30 BUN/Creatinine Ratio 25.9 (10-20) H 08/01/22 22:30 Glucose 95 mg/dl (70-99(Fasting)) 08/01/22 22:30 POC Glucose 105 mg/dl (70-99) H 08/02/22 02:46 Osmolality 263 mOsm/kg (280-300) L 08/01/22 22:30 Calcium 9.0 mg/dl (8.6-10.3) 08/01/22 22:30 Magnesium 1.6 mg/dl (1.7-2.4) L 08/01/22 22:30 Total Bilirubin 0.7 mg/dl (0.2-1.0) 08/01/22 22:30 AST 42 U/L (13-39) H 08/01/22 22:30 ALT 34 U/L (7-52) 08/01/22 22:30 Alkaline Phosphatase 115 U/L (34-104) H 08/01/22 22:30 Troponin I High Sens 19.0 pg/ml (0-14) H 08/01/22 22:30 B-Natriuretic Peptide 327 pg/ml (0-100) H 08/01/22 22:30 Total Protein 5.5 gm/dl (6.0-8.3) L 08/01/22 22:30 Albumin 3.4 gm/dl (3.4-5.0) 08/01/22 22: Globulin 2.1 gm/dl (2.5-4.0) L 08/01/22 22: Albumin/Globulin Ratio 1.6 (0.9-2) 08/01/22 22:30 Ur Specific [place] 1.007 (1.000-1.030) 08/02/22 02:45 Urine Osmolality 306 mOsm/kg (500-800) L 08/02/22 02:45 Ur Random Sodium 116 mmol/L 08/02/22 02:45 SARS-CoV-2 (PCR) NEGATIVE (Negative) 08/01/22 22:30 Influenza Type A (PCR) Negative (Neg) 08/01/22 22:30 Influenza Type B (PCR) Negative (Neg) 08/01/22 22:30 RSV (RT-PCR) Negative (Neg) 08/01/22 22:30 Impressions Chest X-Ray 08/01/22 21:42 SINGLE VIEW CHEST CLINICAL HISTORY: Atypical chest pain. Recent surgery. FINDINGS: An AP, portable, upright chest radiograph is compared to study dated 06/18/2022 and correlated with chest CT dated 05/26/2022. A 2-lead cardiac pacemaker is unchanged in position and partially obscures the left mid chest. The heart is enlarged noting atherosclerotic calcification of the thoracic aorta. There is pulmonary vascular congestion. Emphysema and chronic interstitial thickening is similar to previous. There are small pleural effusions with left basilar consolidation. Suture material projects over the left mid lung. There is a moderate left apical pneumothorax with consolidation/atelectasis in the left midlung. No pneumothorax is seen on the right. The skeletal structures are osteopenic. The bony thorax is grossly intact. Subcutaneous emphysema is seen in the left lower neck and throughout the left chest wall. IMPRESSION: 1. There is a moderate left apical pneumothorax with consolidation/atelectasis in the left mid lung. 2. Cardiomegaly and cardiac pacemaker with pulmonary vascular congestion. 3. Small pleural effusions with left basilar consolidation. Correlate clinically for evidence of pneumonia/aspiration pneumonitis. 4. Emphysema with postoperative change in the left lung. 5. Subcutaneous emphysema is seen in the left lower neck and throughout the left chest wall. ACT 112: Negative or not required by law. Electronically signed by: Dallas Dhillon M.D. 08/01/2022 10:[address] 08/01/22 23:04 Exam(s): CT CHEST Without Contrast EXAM: CT Chest Without Intravenous Contrast CLINICAL HISTORY: Reason for exam: Eval L sided PTX, recent VATS, SOB. TECHNIQUE: Axial computed tomography images of the chest without intravenous contrast. CTDI is 5.7 mGy and DLP is 191.06 mGy-cm. Automated exposure control was utilized for the study. A dose lowering technique was utilized adhering to the principles of ALARA. COMPARISON: CT chest 05/26/22 FINDINGS: Patient has undergone recent thoracotomy with wedge resection of the left upper lobe. There is a comminuted fracture of posterior left rib 8, likely related to recent thoracotomy. There is a staple line in the left upper lobe with surrounding region of consolidation. Previously seen sub-solid nodule is no longer visualized. There is a 40-50% left hydropneumothorax without mediastinal shift. Compressive atelectasis is present in the left lower lobe. There is extensive subcutaneous emphysema in the left chest wall. There is a small layering right pleural effusion with right basilar atelectasis. There is a background of centrilobular emphysema. Calcified granuloma is noted in the left lower lobe. There is a left chest wall dual-lead AICD-pacemaker. Heart is enlarged. Coronary arteries are calcified. There is no significant pericardial effusion. Thoracic aorta is calcified but normal in caliber. Main pulmonary artery is normal in caliber. No lymphadenopathy is seen. There is mild pneumomediastinum. Aside from the comminuted fracture posterior left rib 8, no acute osseous findings are visualized. IMPRESSION: 1. Status post left thoracotomy and wedge resection of the left upper lobe. 2. Approximately 40-50% left hydropneumothorax without mediastinal shift. Extensive left chest wall emphysema. Mild pneumomediastinum. 3. Small right pleural effusion. 4. Bibasilar atelectasis. 5. Emphysema. Electronically signed by: Trip Hunter M.D. 08/01/22 23:55 PM Medications Administered Magnesium Sulfate/Dextrose (Magnesium Sulfate / D5w) 1 gm in 100 mls @ 50 mls/hr IV Q2H MANE Stop: 08/02/22 08:59 Last Admin: 08/02/22 03:07 Dose: 50 mls/hr Documented By: TMG ECG Additional Comments: Per my interpretation: EKG with atrial fibrillation at 104 bpm, normal axis, QRS = 86, QTc = 468, no acute ischemic changes present. Code Status & VTE Plan VTE Prophylaxis Plan VTE Prophylaxis will be ordered: Yes PG Care Time/CCT Total # of Minutes Spent Total Time Spent with Patient: Total time spent is greater than 50% in coordination of care (as documented) at patient's floor/unit and/or counseling patient: Coding Level of Care Code 39886 INT INP/OBS CARE 3/75MIN Diagnoses Acute pneumothorax J93.83 Hyponatremia E87.1 Atrial fibrillation I48.91 HTN (hypertension) I10 Hyperlipidemia E78.5
--- NOTE | 2022-08-02 01:40 | Critical Care Consultation ---
Date of Consultation August 02, 2022 Assessment & Plan (1) Acute pneumothorax: (2) Subcutaneous emphysema associated with surgical procedure: (3) Status post lobectomy of lung: (4) Atrial fibrillation: (5) HTN (hypertension): (6) Hyperlipidemia: (7) COPD (chronic obstructive pulmonary disease): Plan Reason Critically Ill: 81 YOF s/p Left Upper lobe wedge resection for adenocarcinoma. Presenting with hydro/pneumothorax with subcutaneous emphysema associated with dyspnea. Neuro - No acute needs CAM ICU: NEGATIVE Drinks wine socially- low risk for withdraw - Pain has been controlled with her home gabapentin, Tylenol and Advil- continue Tylenol Cardiac - HTN, Peripheral edema, permanent afib/flutter with PPM - Hold hypertensive medications until hemodynamics proven stable- likely able to start in morning - Bilateral lower extremity edma likely related to fluid spacing following surgical procedure - diurese when hemodynamics proven stable - Hold Eliquis- ideally 48 hours if able - Continue Diltiazem for rate control - Continue Rosuvastatin Respiratory - S/P left upper lobe wedge resection, hydropneumothorax, subcutaneous emphysema, COPD( Emphysema) - Following wedge resection expect some pneumo/fluid in the space created with wedge resection, however with association of extent of subcutaneous emphysema does raise concern of persistent leak. Of note patient also had pneumothorax following her lung biopsy. - Extends left lateral neck to just under mandible, posteriorly to 10th rib, lateral under axilla and to mid abdomen and to sternum- trachea soft midline, no extension to face - place on 100% Oxygen via NRB - Follow with serial CXR and symptoms - Currently oxygenating well, respiratory rate and efforts nonlabored and normal - If decompensates place pigtail- ultrasound guided and to chest drainage system - intubation if needed GI - NO acute needs - NPO for now - Advance diet when clinical course becomes more clear RENAL/LYTES - Hyponatremia, Hypomag - Acute asymptomatic with NA 123 - serum osmo- 263 - Urine osmo- pending - Urine NA pending - Spec grav -pending - She reports normal diet intake- ddx- SIADH related to lung cancer vs. medication induced with gabapentin vs. decrease solute intake or combination of above - Free water restrict 1500ml - Replete electrolytes per ICU protocol - No acute needs ENDO - No acute needs HEME - Adenocarcinoma primary of lung - No current therapy ID - No concern for infection LINES/IV ACCESS - PIV Continue use of these lines DVT PROPHYLAXIS - SCDS, hold chemoprophylaxis at this time secondary to risk for invasive procedure DISPO- ICU while monitoring of her pneumothorax and sub q emphysema until improvement,stabilization or transfer I have personally spent 50 minutes of critical care time in the direct management of this patient. This is a life/limb threatening event. This includes time spent evaluating patient, direct bedside care, chart review, placing orders, interpretation of diagnostic studies, discussion with consultants, patient, and family members, as well as other required patient management activities. This time is exclusive of all separately billable procedures, and teaching time and separate from and in addition to any other critical care service time. Thank you for allowing us to participate in the care of this patient. Please refer to my attending physician's documentation for any further recommendations. History of Present Illness Reason for Consultation: Pneumothorax/subcutaneous emphysema s/p Left Upper Lobectomy Requesting Physician: Kimberly Laguerre MD Attending Physician: Kimberly Laguerre MD History of Present Illness 81 YOF with medical history of: HTN, Permanent AFIB with pacemaker (on Eliquis), PPM was placed secondary to bradycardia following ablations for afib, HLD, Osteopetrosis, Breast Cancer with lumpectomy and XRT 2019, adenocarcinoma of the lung primary. Her adenocarcinoma was found on CT scan of chest 05/21/22. Patient was then referred to pulmonary for evaluation, where she wanted to proceed with surgical resection. She underwent EBUS-TBNA on 07/10/22 She had PFTs completed and had enough FRC to proceed surgically. Patient underwent left upper lobe lobe trisegmentectomy wedge resection and mediastinal lymphadenectomy via robotic assist on 07/27/22. Patient reports that she did well postoperatively without oxygen and had her chest tube removed [id number] and was later discharged from hospital. She does report that she had some "air in her neck, that they were following", she is unsure to the full extent of the subcutaneous emphysema. She came to the EMD tonight secondary to increase in dyspnea and bilateral leg swelling. She reports that she started getting more dyspneic yesterday and progressed today to where she was short of breath and taking small breaths while she was sitting on the couch. In the EMD the patient had routine labs performed as well as CXR. Following her CXR she had a CT scan of the chest performed which confirmed pneumo/hydro thorax without mediastinal shift. This was interpreted as 40-50% and associated with "extensive left chest wall emphysema, and pneumomediastinum. EMD physician Dr. Carrillo did discuss the case with [facility] CT surgeon information systems security manager Dr. De Dios with recommendations of oxygen therapy and monitoring. If decompensation place thoracic tube and call them back. Hospitalist was notified of admission as well as myself. Following review of imaging and noting subcutaneous emphysema did discuss with EMD physician findings and if these were conveyed on initial conversation with [facility]. Dr. Carrillo did call [facility] back and informed them of the Subcutaneous emphsyema extent. CT surgery felt that should be monitored and if transport was needed that should have tube in place, but felt she could be managed with monitoring and oxygen. Patient was placed on NRB 100%. She is on Eliquis so ideally would like to allow this to "wash out" prior to placing pigtail or thoracostomy tube if she would need it. Plan is to place in ICU, follow with serial CXR and exams. IF worsening as above, place pigtail catheter, intubation if needed and call [facility] CT surgery back. COVID: NEGATIVE CODE: FULL Consultations: NONE Allergies Allergy/AdvReac Type Severity Reaction Status Date / Time Penicillins AdvReac Intermediate GI UPSET Verified 08/01/22 23:56 Home Medications Medication Instructions Recorded Confirmed Type apixaban 5 mg tablet (Eliquis) 5 mg PO BID 09/27/21 08/02/22 History brinzolamide 1 %-brimonidine 0.2 % 1 drp ophthalmic (eye) BID #8 mL 09/27/21 08/02/22 Rx eye drops,suspension (Simbrinza) rosuvastatin 20 mg tablet 20 mg PO QPM #90 tabs 01/31/22 08/02/22 Rx losartan 50 mg tablet 50 mg PO DAILY 04/18/22 08/02/22 History diltiazem HCl 120 mg 120 mg PO DAILY #90 caps 05/24/22 08/02/22 Rx capsule,extended release 24 hr acetaminophen 500 mg tablet 1,000 mg PO Q8H 08/01/22 08/02/22 History (Tylenol Extra Strength) gabapentin 300 mg capsule 300 mg PO TID 08/01/22 08/02/22 History multivitamin 1 tab PO DAILY 08/01/22 08/02/22 History naproxen 250 mg tablet 250 mg PO BID 08/01/22 08/02/22 History oxycodone 5 mg tablet 2.5 mg PO Q4H PRN Pain (Scale 08/01/22 08/02/22 History Score 4-6) sennosides 8.6 mg-docusate sodium 1 tab-cap PO BID 08/01/22 08/02/22 History 50 mg capsule (Senna Plus) mupirocin 2 % topical ointment 1 applic topical BID PRN Skin 08/02/22 08/02/22 History Irritation Patient History Medical History Atrial fibrillation on eliquis; follows with Dr. Gómez & Dr. Abreu Family history of colon cancer GERD (gastroesophageal reflux disease) History of breast cancer dx'd 2019 - right breast - hx lumpectomy + radiation History of migraine HTN (hypertension) Hyperlipidemia IBS (irritable bowel syndrome) Osteoporosis Scoliosis SVT (supraventricular tachycardia) Surgical History H/O breast surgery History of appendectomy History of cardiac radiofrequency ablation x 2 History of colonoscopy History of esophagogastroduodenoscopy (EGD) S/P bunionectomy S/P cardiac pacemaker procedure 2014 - A.fib - [facility] - last check 02/2021 per pt S/P eye surgery macular hole Status post lobectomy of lung Family History Mother Breast cancer Colorectal cancer Aunt Breast cancer Colorectal cancer Sister Breast cancer Colorectal cancer Father Myocardial infarction Other Family history of colon cancer No family history of adverse response to anesthesia Denies family history of Ovarian cancer Prostate cancer Social History Smoking Status: Former smoker packs per day: 0.5; Cigarettes Per Day: 20 yr for 1/5 pack per day; Smoking End Date: 35 years ago; Second Hand Exposure: No; Hx Alcohol Use: Yes Alcohol type: wine Alcohol Intake Frequency Comment: social Hx Substance Use: No Preferred Language: Ukrainian Communication Ability: Effective Visual Impairment: No Limitations Hearing Ability: Normal Tele Rn Required: No Beliefs That Will Affect Care: None marital status: Current Living Situation: Spouse Feels Safe at Home: Yes Safety Concerns: Feels Safe At This Time Seatbelt Use: always Assistive Devices: Glasses Review of Systems Review of Systems: REVIEW OF SYSTEMS: Constitutional: No fever, sweats or chills Eyes: No diplopia, no worsening or blurred vision ENT: normal hearing, no trouble swallowing Respiratory: (+) dyspnea, subq emphsyema to neck, No cough, sputum Cardiovascular: No chest pain, tightness or palpitations Abdomen: No pain, nausea, vomiting, diarrhea or constipation Musculoskeletal: No joint pain, calf pain, swelling Neurologic: No weakness, numbness/tingling, or balance problems Psychiatric: No anxiety or depression Skin: No rash or itch Physical Exam Physical Exam: PHYSICAL EXAM: General: awake, alert, no apparent distress Head: Normocephalic, atraumatic ENT: PERRL, EOMI, no pharyngeal exudate, mucous membranes moist Neuro: AAO x 3, speech clear and appropriate, strength intact bilaterally 5/5, sensation intact and equal all extremities and dermatomes, no pronator drift Chest: equal rise and fall of the chest, no accessory muscle use, absent lung sounds upper third of left chest posteriorly, right side clear, sub q emphsyema to left neck extending to just below mandible- this tracks laterall and posteriorly down her back and lateral down to mid abdomen. Cardiac: Regular rate and rhythm, telemetry reviewed- Afib rate controlled, skin warm dry, cap refill <3 seconds, peripheral pulses +2 no JVD, no murmur, +3 edema to mid calves bilaterally GI: NABS x 4 quadrants, soft, nontender to palpation, no rebound, guarding or tenderness : Spontaneously voiding, no pain, no CVA tenderness, Extremities: Normal inspection, no peripheral edema or erythema, calfs nontender to palpation Psych: Normal mood and affect Skin: no rash or erythema Results & Data Results & Data Vital Signs (Past 12 Hours) Vital Signs Temp Pulse Pulse Resp BP BP Pulse Ox 08/02/22 00:07 87 08/02/22 00:08 94 08/02/22 00:00 85 18 171/95 H 95 08/01/22 22:15 78 L 08/01/22 21:39 36.9 C 93 H 18 170/109 H 88 L O2 Del Method O2 Flow Rate 08/02/22 00:07 08/02/22 00:08 Nasal Cannula 4 08/02/22 00:00 Nasal Cannula 4 08/01/22 22:15 Room Air 0 08/01/22 21:39 Room Air Laboratory Results Abnormal lab results 08/01/22 08/01/22 08/01/22 Range/Units 22:30 22:30 22:30 RBC 3.59 L (4.20-5.40) M/uL Hct 35.3 L (37.0-47.0) % MCH 35.4 H (25.0-34.0) pg RDW Std Deviation 48.6 H (36.4-46.3) fL Lymph # (Auto) 0.64 L (1.2-3.4) K/uL Boundary # (Auto) 0.61 H (0.11-0.59) K/uL APTT 34.2 H (21.0-31.0) Seconds Sodium 123 L (136-145) mmol/L Chloride 92 L (98-107) mmol/L Creatinine 0.58 L (0.6-1.2) mg/dl BUN/Creatinine Ratio 25.9 H (10-20) AST 42 H (13-39) U/L Alkaline Phosphatase 115 H (34-104) U/L Troponin I High Sens 19.0 H (0-14) pg/ml B-Natriuretic Peptide (0-100) pg/ml Total Protein 5.5 L (6.0-8.3) gm/dl Globulin 2.1 L (2.5-4.0) gm/dl 08/01/22 Range/Units 22:30 RBC (4.20-5.40) M/uL Hct (37.0-47.0) % MCH (25.0-34.0) pg RDW Std Deviation (36.4-46.3) fL Lymph # (Auto) (1.2-3.4) K/uL Boundary # (Auto) (0.11-0.59) K/uL APTT (21.0-31.0) Seconds Sodium (136-145) mmol/L Chloride (98-107) mmol/L Creatinine (0.6-1.2) mg/dl BUN/Creatinine Ratio (10-20) AST (13-39) U/L Alkaline Phosphatase (34-104) U/L Troponin I High Sens (0-14) pg/ml B-Natriuretic Peptide 327 H (0-100) pg/ml Total Protein (6.0-8.3) gm/dl Globulin (2.5-4.0) gm/dl Diagnostic Findings Chest X-Ray 08/01/22 21:42 SINGLE VIEW CHEST CLINICAL HISTORY: Atypical chest pain. Recent surgery. FINDINGS: An AP, portable, upright chest radiograph is compared to study dated 06/18/2022 and correlated with chest CT dated 05/26/2022. A 2-lead cardiac pacemaker is unchanged in position and partially obscures the left mid chest. The heart is enlarged noting atherosclerotic calcification of the thoracic aorta. There is pulmonary vascular congestion. Emphysema and chronic interstitial thickening is similar to previous. There are small pleural effusions with left basilar consolidation. Suture material projects over the left mid lung. There is a moderate left apical pneumothorax with consolidation/atelectasis in the left midlung. No pneumothorax is seen on the right. The skeletal structures are osteopenic. The bony thorax is grossly intact. Subcutaneous emphysema is seen in the left lower neck and throughout the left chest wall. IMPRESSION: 1. There is a moderate left apical pneumothorax with consolidation/atelectasis in the left mid lung. 2. Cardiomegaly and cardiac pacemaker with pulmonary vascular congestion. 3. Small pleural effusions with left basilar consolidation. Correlate clinically for evidence of pneumonia/aspiration pneumonitis. 4. Emphysema with postoperative change in the left lung. 5. Subcutaneous emphysema is seen in the left lower neck and throughout the left chest wall. ACT 112: Negative or not required by law. Electronically signed by: Dallas Dhillon M.D. 08/01/2022 10:[address] 08/01/22 23:04 Exam(s): CT CHEST Without Contrast EXAM: CT Chest Without Intravenous Contrast CLINICAL HISTORY: Reason for exam: Eval L sided PTX, recent VATS, SOB. TECHNIQUE: Axial computed tomography images of the chest without intravenous contrast. CTDI is 5.7 mGy and DLP is 191.06 mGy-cm. Automated exposure control was utilized for the study. A dose lowering technique was utilized adhering to the principles of ALARA. COMPARISON: CT chest 1/27/23 FINDINGS: Patient has undergone recent thoracotomy with wedge resection of the left upper lobe. There is a comminuted fracture of posterior left rib 8, likely related to recent thoracotomy. There is a staple line in the left upper lobe with surrounding region of consolidation. Previously seen sub-solid nodule is no longer visualized. There is a 40-50% left hydropneumothorax without mediastinal shift. Compressive atelectasis is present in the left lower lobe. There is extensive subcutaneous emphysema in the left chest wall. There is a small layering right pleural effusion with right basilar atelectasis. There is a background of centrilobular emphysema. Calcified granuloma is noted in the left lower lobe. There is a left chest wall dual-lead AICD-pacemaker. Heart is enlarged. Coronary arteries are calcified. There is no significant pericardial effusion. Thoracic aorta is calcified but normal in caliber. Main pulmonary artery is normal in caliber. No lymphadenopathy is seen. There is mild pneumomediastinum. Aside from the comminuted fracture posterior left rib 8, no acute osseous findings are visualized. IMPRESSION: 1. Status post left thoracotomy and wedge resection of the left upper lobe. 2. Approximately 40-50% left hydropneumothorax without mediastinal shift. Extensive left chest wall emphysema. Mild pneumomediastinum. 3. Small right pleural effusion. 4. Bibasilar atelectasis. 5. Emphysema. Electronically signed by: Trip Hunter M.D. 08/01/22 23:55 PM Medications Administered Home Medications apixaban 5 mg tablet (Eliquis) 5 mg PO BID 09/27/21 [History Confirmed 08/02/22] brinzolamide 1 %-brimonidine 0.2 % eye drops,suspension (Simbrinza) 1 drp ophthalmic (eye) BID #8 mL 09/27/21 [Rx Confirmed 08/02/22] rosuvastatin 20 mg tablet 20 mg PO QPM #90 tabs 01/31/22 [Rx Confirmed 08/02/22] losartan 50 mg tablet 50 mg PO DAILY 04/18/22 [History Confirmed 08/02/22] diltiazem HCl 120 mg capsule,extended release 24 hr 120 mg PO DAILY #90 caps 05/24/22 [Rx Confirmed 08/02/22] acetaminophen 500 mg tablet (Tylenol Extra Strength) 1,000 mg PO Q8H 08/01/22 [History Confirmed 08/02/22] gabapentin 300 mg capsule 300 mg PO TID 08/01/22 [History Confirmed 08/02/22] multivitamin 1 tab PO DAILY 08/01/22 [History Confirmed 08/02/22] naproxen 250 mg tablet 250 mg PO BID 08/01/22 [History Confirmed 08/02/22] oxycodone 5 mg tablet 2.5 mg PO Q4H PRN Pain (Scale Score 4-6) 08/01/22 [History Confirmed 08/02/22] sennosides 8.6 mg-docusate sodium 50 mg capsule (Senna Plus) 1 tab-cap PO BID 08/01/22 [History Confirmed 08/02/22] mupirocin 2 % topical ointment 1 applic topical BID PRN Skin Irritation 08/02/22 [History Confirmed 08/02/22] Active Medications Acetaminophen (Acetaminophen 500 Mg Tab) 1,000 mg PO Q8H [facility] Stop: 09/01/22 01:51 Gabapentin (Gabapentin 300 Mg Cap) 300 mg PO TID [facility] Stop: 09/01/22 08:59 Miscellaneous (Icu Protocol For Hyperglycemia) 1 each N/A ACHS [facility] Stop: 08/04/22 07:29 Non-Formulary Medication (Sennosides-Docusate Sodium [Senna Plus]) 1 tabcap PO BID [facility] Stop: 09/01/22 08:59 Oxycodone HCl (Oxycodone Hcl Ir 5 Mg Tab (Immediate Release)) 2.5 mg PO Q4H PRN PRN Reason: Pain (Scale Score 4-6) Stop: 08/16/22 01:51 Rosuvastatin Calcium (Rosuvastatin Calcium 20 Mg Tab) 20 mg PO QPM [facility] Stop: 09/01/22 20:59 ECG Additional Comments: Atrial fibrillation with rapid ventricular response Septal infarct (cited on or before 21-MAY-2022) Abnormal ECG When compared with ECG of 21-MAY-2022 18:35, Nonspecific T wave abnormality, improved in Anterior leads Coding Level of Care Code 59854 IN/OBS CONSULT LVL 4,60M Diagnoses Acute pneumothorax J93.83 Subcutaneous emphysema associated with surgical procedure T81.82XA Status post lobectomy of lung Z90.2 Atrial fibrillation I48.91 HTN (hypertension) I10 Hyperlipidemia E78.5 COPD (chronic obstructive pulmonary disease) J44.9
[2022-08-02 02:14] LABS: Magnesium 1.6 mg/dl (1.7-2.4)
[2022-08-02] MEDS: MAGNESIUM SULFATE / D5W 1 GM/100 ML BAG IV SCH ×3 (03:07→06:47)
[2022-08-02] MEDS ORDERED: ICU ELECTROLYTE REPLACEMENT PROTOCOL SCH (06:00)
[2022-08-02 06:01] LABS: Basophils # (auto) 0.02 K/uL (0-0.2); Basophils % (auto) 0.3 %; Eosinophils # (auto) 0.22 K/uL (0-0.50); Hematocrit (blood only) 34.7 % (37.0-47.0); Hemoglobin 12.4 g/dl (12.0-16.0); Immature Granulocytes # (auto) 0.03 K/uL (0.01-0.20); Immature Granulocytes % (auto) 0.4 %; Lymphocytes # (auto) 0.65 K/uL (1.2-3.4); Lymphocytes % (auto) 8.9 %; Mean Corpuscular Hemoglobin 34.7 pg (25.0-34.0); Mean Corpuscular Hgb Conc 35.7 g/dL (32.0-36.0); Mean Corpuscular Volume 97.2 fL (80.0-100.0); Mean Platelet Volume 9.5 fL (9.4-12.4); Monocytes # (auto) 0.89 K/uL (0.11-0.59); Monocytes % (auto) 12.2 %; Neutrophils # (auto) 5.46 K/uL (1.40-6.50); Neutrophils % (auto) 75.2 %; Platelet Count 166 K/uL (130-400); RDW Coefficient of Variation 13.2 % (11.5-14.5); RDW Standard Deviation 47.5 fL (36.4-46.3); Red Blood Count 3.57 M/uL (4.20-5.40); White Blood Count 7.27 K/ul (4.8-10.8)
[2022-08-02 06:18] LABS: Calcium 8.1 mg/dl (8.6-10.3); Creatinine Clr Calc Pharmacy 61.9 ml/min; Est GFR (African American) 102.4 ml/min; Est GFR (Non-African American) 88.4 ml/min; Phosphorus 2.9 mg/dl (2.5-4.9); Potassium 4.1 mmol/L (3.5-5.1)
[2022-08-02] MEDS: ACETAMINOPHEN 500 MG TAB PO SCH ×3 (06:39→19:18)
--- NOTE | 2022-08-02 07:01 | Critical Care Progress Note ---
Date of Service August 02, 2022 Assessment & Plan (1) Hyponatremia: (2) Subcutaneous emphysema associated with surgical procedure: (3) Acute pneumothorax: (4) Status post lobectomy of lung: (5) Atrial fibrillation: (6) HTN (hypertension): (7) Chest pain: (8) Osteoporosis: (9) Amputated toe: Plan Reason Critically Ill: 81-year-old female here with history significant for HTN, atrial fibrillation, COPD who presented with increasing shortness of breath and was admitted to the ICU for monitoring in setting of pneumothorax. Neuro - [facility] ICU: Negative * Patient is alert and oriented. * Pain control: Tylenol, Oxycodone 2.5mg PRN. Holding home Gabapentin. 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 Patient subjectively still feels short of breath. * Will discuss with surgeon, Dr. Herrmann at [facility] [place], to consider possible interventions/necessity to transfer to [facility] [place]. GI - * Diet: Heart Healthy * Continue Senna/Docusate Renal/Lytes - Hyponatremia * Sodium 124 today, (123 on arrival, 133 as baseline from 04/2022) -Remains asymptomatic. Currently holding gabapentin, losartan -Hyponatremia may be correlated to SIADH, medication induced, multifactorial -Continue to monitor BMP * Serum osmolality 263, urine osmolality 306, urine random sodium 116. * Potassium 4.1, Magnesium 2.0, Phosphorous 2.9. (Received 1g mag sulfate this a.m.) * Replete electrolytes per ICU protocol - * Monitor input & output * Fluid restriction of 1500mL Endo - * Follow ICU Hyperglycemic protocol Heme - Adenocarcinoma of Lung * Hemoglobin 12.4, no signs of active bleed. Holding home Eliquis. * Continue to monitor H&H ID - * No elevated white count, afebrile. * COVID, flu negative on admission Lines/IV Access - * Peripheral IVs intact DVT Prophylaxis - * Holding home Eliquis in anticipation of possible procedure Thank you for allowing us to participate in this patient's care. Please refer to Dr. Mclain's documentation for additional recommendations. Admission and Anticipated Discharge Date Admission Date: August 02, 2022 Supervising Physician Co-Signing Physician Notes Patient seen and examined. EMR reviewed. Discussed on multidisciplinary rounds and with family practice resident as well as with bedside critical care nurse. Discussed on the phone with Dr. Herrmann from [facility] thoracic surgery. Given persistence of the pneumothorax overnight, recommended small bore tube thoracostomy. This will be placed in place to 10 cm of suction versus waterseal per CT surgery request. Diuresis will be initiated. Follow-up chest x-ray in the next 24 hours. The patient is stable to downgrade from the intensive care unit. She will transfer to the floor under the care of the hospitalist. We will continue to follow for pulmonary issues. Subjective Patient was seen and examined at bedside. She is laying in bed, notes that her shortness of breath has not improved since her arrival to the hospital. She recalls that she was discharged from [facility] [place] on 07/29 after her lobectomy and was recovering well at home- but yesterday (08/01) she started to notice some increasing shortness of breath. She denies coughing, chest pain, dizziness/weakness, nausea/vomiting, or hemoptysis. She notes that although she was eating and drinking without issue at home, she felt that her urine output had decreased in the few days since discharge from the hospital. She has had bowel movements over the past two days which were "normal" for her and she denies any blood or dark colored stool. She notes that there were no changes to her medications on discharge and has only minor discomfort around the surgical incision sites. Review of Systems Review of Systems: As per above. Physical Exam Constitutional: Alert and oriented, in no acute distress. Eyes: Anicteric sclerae. ENMT: External ears and nose normal. Moist mucous membranes Respiratory: Decreased breath sounds at left lung base, no crackles or wheezes. Wearing oxymask, no cough. Cardiovascular: Irregularly irregular. No murmur/rub/gallop. +3 pitting edema of bilateral lower extremities. Gastrointestinal (Abdomen): Abdomen soft, nontender, nondistended. No masses palpated. Bowel sounds present. Musculoskeletal: Moves all limbs independently. Skin: Several small surgical incision sites present at left posterior thorax/flank. Healing appropriately, no exudate or surrounding erythema. Psychiatric: A+Ox3, euthymic affect Results & Data Results & Data Vital Signs (Past 12 Hours) Vital Signs Temp Pulse Pulse Resp BP BP Pulse Ox 08/02/22 06:25 176/105 H 08/02/22 06:25 69 24 95 08/02/22 06:15 75 26 H 92 08/02/22 06:00 62 13 97 08/02/22 05:45 62 14 95 08/02/22 05:30 65 13 95 08/02/22 05:15 75 20 95 08/02/22 05:11 71 25 H 94 08/02/22 04:45 74 22 94 08/02/22 04:30 74 14 95 08/02/22 04:30 36.7 C 155/93 H 08/02/22 04:15 65 16 97 08/02/22 04:00 79 16 93 08/02/22 04:00 150/93 H 08/02/22 03:45 76 25 H 95 08/02/22 03:31 96 H 28 H 94 08/02/22 03:31 178/109 H 08/02/22 03:30 95 H 19 82 L 08/02/22 03:15 96 08/02/22 03:01 184/107 H 08/02/22 03:01 76 24 95 08/02/22 03:00 80 28 H 93 08/02/22 02:45 91 H 22 94 08/02/22 02:30 153/95 H 08/02/22 02:30 73 16 94 08/02/22 02:16 164/99 H 08/02/22 02:16 77 28 H 96 08/02/22 02:15 72 20 95 08/02/22 02:02 82 26 H 98 08/02/22 02:02 171/96 H 08/02/22 02:00 81 23 97 08/02/22 02:00 172/101 H 08/02/22 01:45 79 21 98 08/02/22 01:45 171/112 H 08/02/22 01:44 92 H 27 H 100 08/02/22 01:44 203/129 H 08/02/22 01:30 82 96 08/02/22 01:30 165/99 H 08/02/22 01:15 83 23 97 08/02/22 01:01 83 25 H 97 08/02/22 01:01 195/115 H 08/02/22 01:00 82 26 H 96 08/02/22 00:45 71 15 93 08/02/22 00:30 82 18 93 08/02/22 00:30 157/97 H 08/02/22 00:15 26 H 94 08/02/22 00:08 20 94 08/02/22 02:44 71 08/02/22 02:29 08/02/22 02:10 08/02/22 01:53 36.3 C L 77 21 171/112 H 100 08/02/22 00:07 87 08/02/22 00:08 94 08/02/22 00:00 85 18 171/95 H 95 08/01/22 22:15 78 L 08/01/22 21:39 36.9 C 93 H 18 170/109 H 88 L Pulse Ox O2 Del Method O2 Del Method O2 Flow Rate O2 Flow Rate 08/02/22 06:25 08/02/22 06:25 08/02/22 06:15 08/02/22 06:00 08/02/22 05:45 08/02/22 05:30 08/02/22 05:15 08/02/22 05:11 08/02/22 04:45 08/02/22 04:30 08/02/22 04:30 08/02/22 04:15 08/02/22 04:00 08/02/22 04:00 08/02/22 03:45 08/02/22 03:31 08/02/22 03:31 08/02/22 03:30 08/02/22 03:15 08/02/22 03:01 08/02/22 03:01 08/02/22 03:00 08/02/22 02:45 08/02/22 02:30 08/02/22 02:30 08/02/22 02:16 08/02/22 02:16 08/02/22 02:15 08/02/22 02:02 08/02/22 02:02 08/02/22 02:00 08/02/22 02:00 08/02/22 01:45 08/02/22 01:45 08/02/22 01:44 08/02/22 01:44 08/02/22 01:30 08/02/22 01:30 08/02/22 01:15 08/02/22 01:01 08/02/22 01:01 08/02/22 01:00 08/02/22 00:45 08/02/22 00:30 08/02/22 00:30 08/02/22 00:15 08/02/22 00:08 08/02/22 02:44 08/02/22 02:29 95 Oxymask 10 08/02/22 02:10 Oxymask 10 08/02/22 01:53 Oxymask 15 08/02/22 00:07 08/02/22 00:08 Nasal Cannula 4 08/02/22 00:00 Nasal Cannula 4 08/01/22 22:15 Room Air 0 08/01/22 21:39 Room Air Resident Activity Tracking Resident Involvement: Resident Care Provided Care Provided: Adult Hospital Medicine
[2022-08-02] MEDS: ICU Protocol for HYPERglycemia SCH ×2 (07:21→08:47)
[2022-08-02] MEDS: GABAPENTIN 300 MG CAP PO SCH ×3 (07:24→19:18)
--- NOTE | 2022-08-02 08:02 | XRay Report ---
XR chest 2V PA/lateral CLINICAL HISTORY: Pneumothorax. COMPARISON STUDY: Chest radiograph and chest CT August 01, 2022. FINDINGS: Left subclavian pacer is in place. A moderate size left hydropneumothorax is again noted. T his appears similar to prior radiographs and chest CT. Associated subcutaneous gas within the left ch est is noted. Postoperative findings within the left lung are present. A small right pleural effusion is noted. There is underlying emphysema. Cardiomediastinal silhouette is stable. Right basilar opaci ty has increased. Pulmonary vascular congestion. IMPRESSION: 1. No significant change in a moderate left hydropneumothorax since prior chest radiograph and chest CT. Associated subcutaneous gas within the left chest wall and neck. Postoperative findings within th e left lung. 2. Small right pleural effusion with increase in right basilar airspace opacity. This could reflect a telectasis or consolidation. 3. Pulmonary vascular congestion. 4. Emphysema. ACT 112: Negative or not required by law. Electronically signed by: Denton Dorsey M.D. 08/02/2022 8:01 AM
--- NOTE | 2022-08-02 08:06 | Hospitalist Progress Note ---
Date of Service August 02, 2022 Assessment & Plan (1) Acute pneumothorax: Plan: 81-year-old female with history of left upper lobe lung adenocarcinoma s/p robotic assisted left upper lobe trisegmentectomy and mediastinal lymphadenectomy performed at [facility] 07/27/2022 presenting with acute shortness of breath. Acute hypoxic respiratory failure upon arrival with saturation of 70% on room air requiring supplemental oxygen. Presently with appropriate saturation on [address] of the chest with extensive hydropneumothorax. Patient hemodynamically stable. No mediastinal shift. No clinical concern for tension physiology at this time. Critical care hot baller placed pigtail chest tube into her left chest confirmed by x-ray toe waterseal Continue supplemental oxygen 100% nonrebreather (2) Hyponatremia: Plan: Chronic hyponatremia, unstable moderate risk now slightly wose Asymptomatic. Patient reports she is eating fairly well at home low urine and serum osmolality Fluid restriction if persistent may consider hypertonic saline (3) Atrial fibrillation: Plan: Chronic stable, Rate controlled. Patient anticoagulated on Eliquis. moderate risk Continue diltiazem 120 mg p.o. daily Hold Eliquis for possible procedure (4) HTN (hypertension): Plan: chronic unstable elevated may need to resume losartan as needed hydralazine is ordered (5) Hyperlipidemia: Plan: Chronic sable Continue Crestor 20 mg p.o. every afternoon ProphylaxisSCDs to bilateral lower extremities Codefull per discussion with patient Admission and Anticipated Discharge Date Admission Date: August 02, 2022 Subjective this pt was seen after chest tube insertion, she is stable, pain controlled still sob Physical Exam Physical Exam: subcutaneous emphysema poor air movement on left'no wheezes cardiac exam is regular Results & Data Results & Data Vital Signs (Past 12 Hours) Vital Signs Temp Pulse Pulse Resp BP BP Pulse Ox 08/02/22 06:25 176/105 H 08/02/22 06:25 69 24 95 08/02/22 06:15 75 26 H 92 08/02/22 06:00 62 13 97 08/02/22 05:45 62 14 95 08/02/22 05:30 65 13 95 08/02/22 05:15 75 20 95 08/02/22 05:11 71 25 H 94 08/02/22 04:45 74 22 94 08/02/22 04:30 74 14 95 08/02/22 04:30 98.1 F 155/93 H 08/02/22 04:15 65 16 97 08/02/22 04:00 79 16 93 08/02/22 04:00 150/93 H 08/02/22 03:45 76 25 H 95 08/02/22 03:31 96 H 28 H 94 08/02/22 03:31 178/109 H 08/02/22 03:30 95 H 19 82 L 08/02/22 03:15 96 08/02/22 03:01 184/107 H 08/02/22 03:01 76 24 95 08/02/22 03:00 80 28 H 93 08/02/22 02:45 91 H 22 94 08/02/22 02:30 153/95 H 08/02/22 02:30 73 16 94 08/02/22 02:16 164/99 H 08/02/22 02:16 77 28 H 96 08/02/22 02:15 72 20 95 08/02/22 02:02 82 26 H 98 08/02/22 02:02 171/96 H 08/02/22 02:00 81 23 97 08/02/22 02:00 172/101 H 08/02/22 01:45 79 21 98 08/02/22 01:45 171/112 H 08/02/22 01:44 92 H 27 H 100 08/02/22 01:44 203/129 H 08/02/22 01:30 82 96 08/02/22 01:30 165/99 H 08/02/22 01:15 83 23 97 08/02/22 01:01 83 25 H 97 08/02/22 01:01 195/115 H 08/02/22 01:00 82 26 H 96 08/02/22 00:45 71 15 93 08/02/22 00:30 82 18 93 08/02/22 00:30 157/97 H 08/02/22 00:15 26 H 94 08/02/22 00:08 20 94 08/02/22 02:44 71 08/02/22 02:29 08/02/22 02:10 08/02/22 01:53 97.3 F L 77 21 171/112 H 100 08/02/22 00:07 87 08/02/22 00:08 94 08/02/22 00:00 85 18 171/95 H 95 08/01/22 22:15 78 L 08/01/22 21:39 98.4 F 93 H 18 170/109 H 88 L Pulse Ox O2 Del Method O2 Del Method O2 Flow Rate O2 Flow Rate 08/02/22 06:25 08/02/22 06:25 08/02/22 06:15 08/02/22 06:00 08/02/22 05:45 08/02/22 05:30 08/02/22 05:15 08/02/22 05:11 08/02/22 04:45 08/02/22 04:30 08/02/22 04:30 08/02/22 04:15 08/02/22 04:00 08/02/22 04:00 08/02/22 03:45 08/02/22 03:31 08/02/22 03:31 08/02/22 03:30 08/02/22 03:15 08/02/22 03:01 08/02/22 03:01 08/02/22 03:00 08/02/22 02:45 08/02/22 02:30 08/02/22 02:30 08/02/22 02:16 08/02/22 02:16 08/02/22 02:15 08/02/22 02:02 08/02/22 02:02 08/02/22 02:00 08/02/22 02:00 08/02/22 01:45 08/02/22 01:45 08/02/22 01:44 08/02/22 01:44 08/02/22 01:30 08/02/22 01:30 08/02/22 01:15 08/02/22 01:01 08/02/22 01:01 08/02/22 01:00 08/02/22 00:45 08/02/22 00:30 08/02/22 00:30 08/02/22 00:15 08/02/22 00:08 08/02/22 02:44 08/02/22 02:29 95 Oxymask 10 08/02/22 02:10 Oxymask 10 08/02/22 01:53 Oxymask 15 08/02/22 00:07 08/02/22 00:08 Nasal Cannula 4 08/02/22 00:00 Nasal Cannula 4 08/01/22 22:15 Room Air 0 08/01/22 21:39 Room Air Laboratory Results Reviewed CBC reviewed PRP Reviewed coagulation studies Reviewed troponin PG Care Time/CCT Total # of Minutes Spent Total Time Spent with Patient: Total time spent is greater than 50% in coordination of care (as documented) at patient's floor/unit and/or counseling patient: Coding Level of Care Code 61138 SUB INP/OBS CARE 2/35MIN Diagnoses Acute pneumothorax J93.83 Hyponatremia E87.1 Atrial fibrillation I48.91 HTN (hypertension) I10 Hyperlipidemia E78.5
[2022-08-02] MEDS: dilTIAZem HCL 120 MG CAPCR PO SCH ×3 (08:26→19:18)
[2022-08-02] MEDS: DOCUSATE SODIUM/SENNA 50/8.6MG TAB PO SCH ×3 (08:26→19:18)
[2022-08-02] MEDS ORDERED: Nursing to Pharmacy Communication SCH (09:00)
--- NOTE | 2022-08-02 10:10 | Electrocardiogram Report ---
Test Reason : Blood Pressure : / mmHG Vent. 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
--- NOTE | 2022-08-02 11:55 | XRay Report ---
XR chest 1V portable HISTORY: Left-sided chest tube. COMPARISON: Chest 08/02/2022. FINDINGS: Interval placement of a left-sided pigtail percutaneous chest tube which terminates at the left upper lung zone. The moderate left-sided pneumothorax persists. There is suture material again n oted within the left hemithorax. Small bilateral pleural effusions and bibasilar densities remain unc hanged. There is a left-sided dual-chamber pacemaker. The heart remains enlarged. Scoliosis. Left gian st wall subcutaneous emphysema remains unchanged. IMPRESSION: 1. Interval placement of a left-sided chest tube which terminates in left upper lung zone. 2. The moderate left pneumothorax is similar to the prior study. 3. Small bilateral pleural effusions and bibasilar densities, unchanged. 4. Postoperative changes within the left hemithorax and left chest wall subcutaneous emphysema again noted. ACT 112: Negative or not required by law. Electronically signed by: Roc Bravo M.D. 08/02/2022 11:54 AM
--- NOTE | 2022-08-02 12:46 | Procedure Note ---
Procedure Note Date of Service August 02, 2022 Note Procedure: 14 Somali pigtail catheter placement Indication: pneumothorax Consent risk and benefits were discussed with the patient. She agreed. Written consent was verified prior to commencement of the procedure. Senior Assistant Manager Dr. Mclain Estimated blood loss: Less than 5 mL Anesthesia: 10 mL 1% lidocaine without epinephrine locally. Procedure: Patient was placed in a left-sided up decubitus position. Landmarks were easily palpated. An area in the midclavicular line lateral to the nipple was identified and was cleansed using chlorhexidine and a sterile field established. The skin and subcutaneous tissues were anesthetized with 1% lidocaine without epinephrine. The muscle and deeper soft tissues were anesthetized using a finder needle. With the finder needle I was able to aspirate air. The finder needle was then withdrawn. A small skin dipti was made with a scalpel. An 18-gauge needle was then advanced on a similar line until I was able to aspirate air. The syringe was withdrawn leaving the needle in place. A wire was passed through the needle and then the needle was withdrawn leaving the wire in the pleural space. A 14 Somali dilator was then passed over the wire to dilate the skin and soft tissues. This passed with ease. The dilator was removed leaving the wire in place. A 14 Somali pigtail catheter was then loaded on a straightening catheter and advanced over the wire into the pleural space. The stiffening catheter and wire were removed leaving the pigtail catheter in place. A three-way stopcock was attached. The tube was attached to suction with a 1+ airleak on the Pleur-evac system. A skater catheter fixation system was attached to the chest wall and the catheter secured. Catheter was attached to suction at 10 cm of water. Post procedure chest x-ray is pending. The patient tolerated the procedure well. Coding CPT Codes Pulmonary/Thoracic - Pulmonary and Thoracic: 55587 Tube thoracostomy ([id number]) [facility] [place]Charges) Pulmonary/Thoracic Procedure 1: Pulmonary and Thoracic: 74365 Tube thoracostomy
--- NOTE | 2022-08-02 12:53 | Billing Data ---
Date of Service August 02, 2022 Coding Level of Care Code 77846 SUB INP/OBS CARE
[2022-08-02] MEDS: FUROSEMIDE INJ 20 MG/2 ML VIAL IV SCH (13:02)
[2022-08-02] MEDS ORDERED: hydrALAZINE HCL 20 MG/ML VIAL IV PRN (14:38)
[2022-08-02] MEDS: oxyCODONE HCL IR 5 MG TAB (IMMEDIATE RELEASE) PO PRN ×2 (15:46→19:17)
[2022-08-02] MEDS ORDERED: ONDANSETRON INJ 2 MG/ML 2 ML VIAL ONE (15:47)
--- NOTE | 2022-08-02 18:03 | Hospitalist Progress Note ---
Date of Service August 02, 2022 Assessment & Plan (1) Acute pneumothorax: Plan: 81-year-old female with history of left upper lobe lung adenocarcinoma s/p robotic assisted left upper lobe trisegmentectomy and mediastinal lymphadenectomy performed at [facility] 07/27/2022 presenting with acute shortness of breath. Acute hypoxic respiratory failure upon arrival with saturation of 70% on room air requiring supplemental oxygen. Presently with appropriate saturation on [address] of the chest with extensive hydropneumothorax. Patient hemodynamically stable. No mediastinal shift. No clinical concern for tension physiology at this time. Critical care press set up placed pigtail chest tube into her left chest confirmed by x-ray toe waterseal Continue supplemental oxygen 100% nonrebreather hydropneumothorax, a complication of care (2) Hyponatremia: Plan: Chronic hyponatremia, unstable moderate risk now slightly wose Asymptomatic. Patient reports she is eating fairly well at home low urine and serum osmolality Fluid restriction if persistent may consider hypertonic saline (3) Atrial fibrillation: Plan: Chronic stable, Rate controlled. Patient anticoagulated on Eliquis. moderate risk Continue diltiazem 120 mg p.o. daily Hold Eliquis for possible procedure (4) HTN (hypertension): Plan: chronic unstable elevated may need to resume losartan as needed hydralazine is ordered (5) Hyperlipidemia: Plan: Chronic sable Continue Crestor 20 mg p.o. every afternoon ProphylaxisSCDs to bilateral lower extremities Codefull per discussion with patient Admission and Anticipated Discharge Date Admission Date: August 02, 2022 Results & Data Results & Data Vital Signs (Past 12 Hours) Vital Signs Temp Pulse Resp BP Pulse Ox O2 Del Method O2 Del Method 08/02/22 16:00 78 20 96 Nasal Cannula 08/02/22 15:52 120/70 08/02/22 15:52 81 26 H 95 08/02/22 15:00 87 26 H 96 08/02/22 14:00 84 20 95 08/02/22 13:00 73 24 95 08/02/22 15:40 76 08/02/22 12:18 151/94 H 08/02/22 12:18 76 21 96 Nasal Cannula 08/02/22 12:00 66 21 96 08/02/22 11:00 70 20 96 08/02/22 11:00 174/87 H 08/02/22 10:01 73 22 97 04/05/23 10:01 165/104 H 08/02/22 10:00 74 20 97 08/02/22 09:00 66 20 95 08/02/22 09:00 139/80 08/02/22 12:59 97.9 F 08/02/22 08:37 162/81 H 08/02/22 08:37 76 20 93 08/02/22 08:00 97.7 F 08/02/22 08:00 Oxymask 08/02/22 08:00 Oxymask 08/02/22 08:00 68 23 94 Oxymask 08/02/22 08:00 172/87 H 08/02/22 07:00 65 15 08/02/22 07:00 143/86 H 08/02/22 06:25 176/105 H 08/02/22 06:25 69 24 95 08/02/22 06:15 75 26 H 92 O2 Flow Rate 08/02/22 16:00 2 08/02/22 15:52 08/02/22 15:52 08/02/22 15:00 08/02/22 14:00 08/02/22 13:00 08/02/22 15:40 08/02/22 12:18 08/02/22 12:18 3 08/02/22 12:00 08/02/22 11:00 08/02/22 11:00 08/02/22 10:01 08/02/22 10:01 08/02/22 10:00 08/02/22 09:00 08/02/22 09:00 08/02/22 12:59 08/02/22 08:37 08/02/22 08:37 08/02/22 08:00 08/02/22 08:00 10 08/02/22 08:00 08/02/22 08:00 10 08/02/22 08:00 08/02/22 07:00 08/02/22 07:00 08/02/22 06:25 08/02/22 06:25 08/02/22 06:15 PG Care Time/CCT Total # of Minutes Spent Total Time Spent with Patient: Total time spent is greater than 50% in coordination of care (as documented) at patient's floor/unit and/or counseling patient: Coding Level of Care Code None Diagnoses Acute pneumothorax J93.83 Hyponatremia E87.1 Atrial fibrillation I48.91 HTN (hypertension) I10 Hyperlipidemia E78.5
[2022-08-02] MEDS: ROSUVASTATIN CALCIUM 20 MG TAB PO SCH (19:18)
[2022-08-02] MEDS: LOSARTAN POTASSIUM 50 MG TAB PO SCH (19:22)
[2022-08-02] MEDS: ONDANSETRON INJ 2 MG/ML 2 ML VIAL IV PRN (21:45)
[2022-08-03] MEDS: ACETAMINOPHEN 500 MG TAB PO SCH ×3 (05:19→21:38)
[2022-08-03 05:22] LABS: Basophils # (auto) 0.02 K/uL (0-0.2); Basophils % (auto) 0.3 %; Eosinophils # (auto) 0.28 K/uL (0-0.50); Eosinophils % (auto) 4.1 %; Hematocrit (blood only) 35.5 % (37.0-47.0); Hemoglobin 12.9 g/dl (12.0-16.0); Immature Granulocytes # (auto) 0.03 K/uL (0.01-0.20); Immature Granulocytes % (auto) 0.4 %; Lymphocytes # (auto) 0.75 K/uL (1.2-3.4); Lymphocytes % (auto) 10.9 %; Mean Corpuscular Hemoglobin 35.1 pg (25.0-34.0); Mean Corpuscular Hgb Conc 36.3 g/dL (32.0-36.0); Mean Corpuscular Volume 96.5 fL (80.0-100.0); Mean Platelet Volume 9.5 fL (9.4-12.4); Monocytes # (auto) 1.08 K/uL (0.11-0.59); Monocytes % (auto) 15.6 %; Neutrophils # (auto) 4.75 K/uL (1.40-6.50); Neutrophils % (auto) 68.7 %; Platelet Count 185 K/uL (130-400); RDW Coefficient of Variation 13.1 % (11.5-14.5); RDW Standard Deviation 46.5 fL (36.4-46.3); Red Blood Count 3.68 M/uL (4.20-5.40); White Blood Count 6.91 K/ul (4.8-10.8)
[2022-08-03 05:30] LABS: BUN Creatinine Ratio 21.9 (10-20); Calcium 8.4 mg/dl (8.6-10.3); Creatinine Clr Calc Pharmacy 50.3 ml/min; Est GFR (African American) 95.6 ml/min; Est GFR (Non-African American) 82.5 ml/min; Magnesium 1.8 mg/dl (1.7-2.4); Phosphorus 3.7 mg/dl (2.5-4.9); Potassium 3.8 mmol/L (3.5-5.1)
[2022-08-03] MEDS: oxyCODONE HCL IR 5 MG TAB (IMMEDIATE RELEASE) PO PRN (07:44)
--- NOTE | 2022-08-03 08:14 | XRay Report ---
XR chest 1V portable CLINICAL HISTORY: ptx TECHNIQUE: Single frontal radiograph of the chest was obtained. Comparison: Comparison is made to chest radiographs 08/02/2012 FINDINGS: Dual lead pacemaker is seen. There is a left pigtail catheter. The cardiomediastinal silhouette is st able. Bilateral lower lung airspace opacities are seen. Surgical sutures are again noted projecting o azra the left upper lung. There are small bilateral pleural effusions. No pneumothorax is seen. Subcut aneous emphysema is again noted on the left. Scoliosis is seen. IMPRESSION: 1. Interval significant improvement of previously noted pneumothorax, left chest tube is in place. 2. Bilateral pleural effusions. ACT 112: Negative or not required by law. Electronically signed by: Hamilton Leon M.D. 08/03/2022 8:11 AM
[2022-08-03] MEDS: DOCUSATE SODIUM/SENNA 50/8.6MG TAB PO SCH ×2 (08:18→21:37)
[2022-08-03] MEDS: ONDANSETRON INJ 2 MG/ML 2 ML VIAL IV PRN (08:18)
[2022-08-03] MEDS: FUROSEMIDE INJ 20 MG/2 ML VIAL IV SCH (08:18)
--- NOTE | 2022-08-03 09:06 | Pulmonology Progress Note ---
Date of Service August 03, 2022 Assessment & Plan (1) Acute pneumothorax: (2) Status post lobectomy of lung: (3) Subcutaneous emphysema associated with surgical procedure: Plan Impression: 81-year-old female status post sublobar resection for adenocarcinoma with pneumothorax status postplacement of 14 Azeri pigtail catheter. Her x-ray appears improved and her pulmonary status is better however she is having issues with nausea and pain. Recommendations: 1. Pneumothorax: Continue chest tube for now. Will place to waterseal. We will plan on repeating chest x-ray this afternoon. If it looks good we will maintain waterseal and plan on repeating noncontrast CT of the chest in the morning to ensure the pleural space has been adequately treated. If pneumothorax recurs, may consider returning to suction at 10 cmH2O. 2. Postoperative pain: Restart gabapentin 100 mg p.o. 3 times daily. We will pursue a trial of Lidoderm patch. If she has persistent issues, acute pain consult for consideration of intercostal block may be appropriate. 3. Hypoxemia: Significantly improved. Continue to wean oxygen as tolerated. 4. Patient should be out of bed to chair as tolerated. 5. Management of patient's hyponatremia per primary service. Slightly worse today. She is having persistent issues with nausea. Continue Zofran. Trial of Compazine or Phenergan may also be considered We will continue to follow with you. Feel free to contact us with questions or concerns in the interim Admission and Anticipated Discharge Date Admission Date: August 02, 2022 Subjective Patient seen and examined. EMR reviewed. The patient states her respiratory status is much improved. She is not coughing. She does not feel that she needs oxygen anymore. She was started on diuretics. Obese complaints today her nausea and poor p.o. intake. She received a dose of Zofran earlier today but this does not appear to be effectual. She has minimal appetite. Review of Systems Review of Systems: All systems reviewed & are unremarkable except as noted in Subjective Physical Exam Constitutional: WD/WN, vitals as above Neck: trachea midline, no thyromegaly Respiratory: normal respiratory effort, lungs clear to auscultation Cardiovascular: RRR, no murmur, no edema Gastrointestinal (Abdomen): normal bowel sounds, soft, nontender, no hepatosplenomegaly Musculoskeletal: Extremities: extremities normal to inspection Skin: no rashes, warm and dry Neurologic: Nonfocal exam Lymphatic: no cervical lymphadenopathy Results & Data Results & Data Vital Signs (Past 12 Hours) Vital Signs Temp Pulse Pulse Resp BP BP Pulse Ox 08/03/22 08:00 72 12 08/03/22 08:00 119/70 08/03/22 07:00 72 19 90 08/03/22 05:46 71 08/03/22 05:45 115/74 08/03/22 05:26 115/74 08/03/22 05:17 37.0 C 66 14 115/74 96 08/03/22 00:41 36.8 C 75 16 140/89 97 08/02/22 22:38 08/02/22 22:33 36.9 C 76 12 140/96 97 08/02/22 22:00 82 11 L 08/02/22 22:00 140/96 08/02/22 21:38 167/118 H 08/02/22 21:38 77 15 94 O2 Del Method O2 Flow Rate 08/03/22 08:00 08/03/22 08:00 08/03/22 07:00 Nasal Cannula 2 08/03/22 05:46 08/03/22 05:45 08/03/22 05:26 08/03/22 05:17 Nasal Cannula 2 08/03/22 00:41 Nasal Cannula 2 08/02/22 22:38 Nasal Cannula 2 08/02/22 22:33 Room Air 08/02/22 22:00 08/02/22 22:00 08/02/22 21:38 08/02/22 21:38 Laboratory Results 08/03/22 04:53 08/03/22 04:53 Diagnostic Findings Chest x-ray performed this morning was independently reviewed. It demonstrates the tube to be in good position. There is a persistent linear density in the left upper lobe unclear if this is related to loculated pleural air or not. Effusions appear better PG Care Time/CCT Total # of Minutes Spent Total Time Spent with Patient: Total time spent is greater than 50% in coordination of care (as documented) at patient's floor/unit and/or counseling patient: Coding Level of Care Code 86288 SUB INP/OBS CARE 2/35MIN Diagnoses Acute pneumothorax J93.83 Status post lobectomy of lung Z90.2 Subcutaneous emphysema associated with surgical procedure T81.82XA
[2022-08-03] MEDS ORDERED: PROCHLORPERAZINE MALEATE 5 MG TAB PO ONE (09:15)
[2022-08-03] MEDS: GABAPENTIN 100 MG CAP PO SCH ×3 (09:46→21:38)
[2022-08-03] MEDS: LIDOCAINE 5% 1 PATCH TD SCH (09:47)
--- NOTE | 2022-08-03 16:09 | XRay Report ---
XR chest 1V portable CLINICAL HISTORY: ptx, tube clamped TECHNIQUE: Single frontal radiograph of the chest was obtained. Comparison: Comparison is made to chest radiograph 08/03/2022 FINDINGS: Stable left chest tube. Stable dual lead pacemaker. The cardiomediastinal silhouette is stable. Posit ion material is again seen in the left upper lung. There is no radiographic evidence of recurrent pne umothorax, although evaluation is again limited by superimposed subcutaneous emphysema. Stable bilate ral pleural effusions. IMPRESSION: 1. No evidence of pneumothorax is seen. Stable left chest tube subcutaneous emphysema. 2. Stable bilateral pleural effusions. ACT 112: Negative or not required by law. Electronically signed by: Hamilton Leon M.D. 08/03/2022 4:08 PM
[2022-08-03] MEDS: PROCHLORPERAZINE 5 MG in SYRINGE 4 ML IV PRN (17:12)
[2022-08-03] MEDS: ROSUVASTATIN CALCIUM 20 MG TAB PO SCH (21:37)
[2022-08-03] MEDS: dilTIAZem HCL 120 MG CAPCR PO SCH (21:38)
--- NOTE | 2022-08-03 22:41 | Hospitalist Progress Note ---
Date of Service August 03, 2022 Assessment & Plan (1) Acute pneumothorax: Plan: 81-year-old female with history of left upper lobe lung adenocarcinoma s/p robotic assisted left upper lobe trisegmentectomy and mediastinal lymphadenectomy performed at [facility] 07/27/2022 presenting with acute shortness of breath. Acute hypoxic respiratory failure upon arrival with saturation of 70% on room air requiring supplemental oxygen. Presently with appropriate saturation on [address] of the chest with extensive hydropneumothorax. Patient hemodynamically stable. No mediastinal shift. No clinical concern for tension physiology at this time. Critical care multi care technician placed pigtail chest tube into her left chest confirmed by x-ray toe waterseal Continue supplemental oxygen hydropneumothorax, a complication of care patiet appears to be improving, now on nasal cannula -will obtain ct chest to verify improvement of pneumothorac on 08/04 (2) Hyponatremia: Plan: Chronic hyponatremia, unstable moderate risk now slightly wose Asymptomatic. Patient reports she is eating fairly well at home low urine and serum osmolality Fluid restriction if persistent may consider hypertonic saline (3) Atrial fibrillation: Plan: Chronic stable, Rate controlled. Patient anticoagulated on Eliquis. moderate risk Continue diltiazem 120 mg p.o. daily Hold Eliquis for possible procedure (4) HTN (hypertension): Plan: chronic unstable elevated may need to resume losartan as needed hydralazine is ordered (5) Hyperlipidemia: Plan: Chronic sable Continue Crestor 20 mg p.o. every afternoon ProphylaxisSCDs to bilateral lower extremities Codefull per discussion with patient Admission and Anticipated Discharge Date Admission Date: August 02, 2022 Subjective 81 yo female reports no new symptoms. Patient reports pain in her chesttube site. Review of Systems Review of Systems: All systems reviewed & are unremarkable except as noted in HPI & below Physical Exam Physical Exam: subcutaneous emphysema poor air movement on left'no wheezes cardiac exam is regular Results & Data Results & Data Vital Signs (Past 12 Hours) Vital Signs Temp Pulse Pulse Resp BP BP Pulse Ox 08/03/22 22:28 08/03/22 19:39 36.5 C 72 22 135/65 98 08/03/22 18:00 67 15 98 08/03/22 18:00 126/80 08/03/22 17:56 139/85 08/03/22 17:56 74 24 97 08/03/22 17:00 74 22 08/03/22 16:00 36.6 C 08/03/22 16:00 65 16 97 08/03/22 16:00 143/101 H 08/03/22 15:00 64 14 96 08/03/22 14:00 68 21 94 08/03/22 13:00 74 16 95 08/03/22 12:00 88 16 95 08/03/22 12:00 155/108 H 08/03/22 11:00 76 16 96 O2 Del Method O2 Flow Rate 08/03/22 22:28 Nasal Cannula 2 08/03/22 19:39 Nasal Cannula 2 08/03/22 18:00 08/03/22 18:00 08/03/22 17:56 08/03/22 17:56 Room Air 2 08/03/22 17:00 08/03/22 16:00 08/03/22 16:00 08/03/22 16:00 08/03/22 15:00 08/03/22 14:00 Nasal Cannula 2 08/03/22 13:00 08/03/22 12:00 08/03/22 12:00 08/03/22 11:00 Nasal Cannula 2 PG Care Time/CCT Total # of Minutes Spent Total Time Spent with Patient: Total time spent is greater than 50% in coordination of care (as documented) at patient's floor/unit and/or counseling patient: Coding Level of Care Code 66503 SUB INP/OBS CARE 2/35MIN Diagnoses Acute pneumothorax J93.83 Hyponatremia E87.1 Atrial fibrillation I48.91 HTN (hypertension) I10 Hyperlipidemia E78.5
[2022-08-04] MEDS: ACETAMINOPHEN 500 MG TAB PO SCH ×3 (05:35→22:08)
[2022-08-04 06:11] LABS: Basophils # (auto) 0.02 K/uL (0-0.2); Basophils % (auto) 0.3 %; Eosinophils # (auto) 0.28 K/uL (0-0.50); Eosinophils % (auto) 4.7 %; Hematocrit (blood only) 36.2 % (37.0-47.0); Hemoglobin 13.3 g/dl (12.0-16.0); Immature Granulocytes # (auto) 0.02 K/uL (0.01-0.20); Immature Granulocytes % (auto) 0.3 %; Lymphocytes # (auto) 0.74 K/uL (1.2-3.4); Lymphocytes % (auto) 12.4 %; Mean Corpuscular Hemoglobin 35.6 pg (25.0-34.0); Mean Corpuscular Hgb Conc 36.7 g/dL (32.0-36.0); Mean Corpuscular Volume 96.8 fL (80.0-100.0); Mean Platelet Volume 9.6 fL (9.4-12.4); Monocytes # (auto) 1.04 K/uL (0.11-0.59); Monocytes % (auto) 17.4 %; Neutrophils # (auto) 3.87 K/uL (1.40-6.50); Neutrophils % (auto) 64.9 %; Platelet Count 203 K/uL (130-400); RDW Coefficient of Variation 13.1 % (11.5-14.5); RDW Standard Deviation 47.3 fL (36.4-46.3); Red Blood Count 3.74 M/uL (4.20-5.40); White Blood Count 5.97 K/ul (4.8-10.8)
[2022-08-04 06:28] LABS: BUN Creatinine Ratio 26.6 (10-20); Calcium 8.2 mg/dl (8.6-10.3); Creatinine Clr Calc Pharmacy 50.3 ml/min; Est GFR (African American) 95.6 ml/min; Est GFR (Non-African American) 82.5 ml/min; Magnesium 1.6 mg/dl (1.7-2.4); Phosphorus 3.5 mg/dl (2.5-4.9); Potassium 4.1 mmol/L (3.5-5.1)
--- NOTE | 2022-08-04 07:48 | XRay Report ---
XR chest 1V portable CLINICAL HISTORY: Pneumothorax. COMPARISON STUDY: Chest radiograph August 03, 2022 at 3:29 PM. FINDINGS: Left pleural catheter remains in place. Postoperative findings within the left lung are pre sent. Displaced pleural line is noted superior to the left hilum. This represents a left pneumothorax . The size of the left pneumothorax is difficult to assess by radiography. This is similar to prior r adiograph of August 03, 2022. This has decreased in size since chest radiograph of August 01, 2022. There are small bilateral pleural effusions. Associated bibasilar opacities are present. Subcutaneous gas within the left chest wall and neck has decreased since initial study. Cardiomegaly is unchanged. No evidence for pulmonary edema. IMPRESSION: 1. Left pleural catheter in place. Small to moderate left apical pneumothorax. Size of pneumothorax d ifficult to assess by radiography but similar to prior chest radiograph and decreased from chest radi ograph of August 01, 2022. 2. Small bilateral pleural effusions with associated bibasilar opacities. ACT 112: Negative or not required by law. Electronically signed by: Denton Dorsey M.D. 08/04/2022 7:47 AM
[2022-08-04] MEDS: LOSARTAN POTASSIUM 50 MG TAB PO SCH (08:03)
[2022-08-04] MEDS: DOCUSATE SODIUM/SENNA 50/8.6MG TAB PO SCH ×2 (08:04→20:54)
[2022-08-04] MEDS: GABAPENTIN 100 MG CAP PO SCH ×3 (08:04→20:50)
[2022-08-04] MEDS: FUROSEMIDE INJ 20 MG/2 ML VIAL IV SCH (08:07)
[2022-08-04] MEDS: LIDOCAINE 5% 1 PATCH TD SCH (09:02)
[2022-08-04] MEDS: PROCHLORPERAZINE 5 MG in SYRINGE 4 ML IV PRN (09:32)
--- NOTE | 2022-08-04 12:09 | CT Scan Report ---
CT chest diagnostic wo con CLINICAL HISTORY: follow up ptx TECHNIQUE: Multidetector row helical CT of the chest was performed. Coronal and sagittal reformations were obtained. Automated dose lowering techniques and/or adjustment according to patient size were u tilized for this exam. CT DOSE: 236.30 mGy.cm Comparison: Comparison is made to CT chest 08/04/2022 and chest radiographs 08/04/2022 and 08/03/2022 FINDINGS: Lungs and pleura: There is a small loculated pneumothorax most prominent in the left apex. A left gian st tube is seen. Postsurgical changes are seen in the lingula. Small right pleural effusion is seen. Biapical scarring and emphysema noted. Heart and pericardium: Cardiomegaly is seen with biatrial enlargement. Vessels: Moderate atherosclerotic changes in the aorta and coronary arteries. Mediastinum and caitlin: Unremarkable. Chest wall and lower neck: Small thyroid nodules are noted which do not require follow-up by ACR neri peters. Subcutaneous emphysema is seen on the left. Abdomen: Partial visualization of ascites. Bones: Degenerative changes in the thoracic spine. IMPRESSION: 1. Small loculated pneumothorax with associated subcutaneous emphysema. This has significantly incre ased from prior CT. A chest tube is seen. 2. Emphysema and scarring. Stable right pleural effusion. 3. Biatrial enlargement is seen. 4. Partial visualization of ascites. ACT 112: Negative or not required by law. Electronically signed by: Hamilton Leon M.D. 08/04/2022 12:07 PM
--- NOTE | 2022-08-04 13:03 | Pulmonology Progress Note ---
Date of Service August 04, 2022 Assessment & Plan (1) Acute pneumothorax: (2) Status post lobectomy of lung: (3) Subcutaneous emphysema associated with surgical procedure: Plan Impression: 81-year-old female status post sublobar resection for adenocarcinoma with pneumothorax status postplacement of 14 Frisian pigtail catheter. Chest x- ray and CT scan confirmed presence of persistent pneumothorax. It is unclear if this is ex vacuo and if the lung will expand or not. Recommendations: 1. Pneumothorax: We will keep the tube on waterseal for now. We will reach out to thoracic surgery at [facility] to see what recommendations they might have (returning tube to suction, discontinuation of tube and allowing space to fill in, etc.). We will see whether or not they would like her transferred to [place] as well. We will update patient and care team as soon as recomme ndations are received. 2. Postoperative pain: Significantly improved. Continue gabapentin 100 mg p.o. 3 times daily. Continue Lidoderm 3. Hypoxemia: Significantly improved. Continue to wean oxygen as tolerated. 4. Continue to increase activity as tolerated. Continue to follow with you. Admission and Anticipated Discharge Date Admission Date: August 02, 2022 Subjective Patient seen and examined. EMR reviewed. The patient states he is feeling better. She continues to have some mild discomfort at the tube insertion site but her breathing is better. Her nausea is resolved. Has been able to tolerate a diet. Her tube has been on waterseal overnight. Review of Systems Review of Systems: All systems reviewed & are unremarkable except as noted in Subjective Physical Exam Constitutional: WD/WN, vitals as above Neck: trachea midline, no thyromegaly Respiratory: normal respiratory effort, lungs clear to auscultation Cardiovascular: RRR, no murmur, no edema Gastrointestinal (Abdomen): normal bowel sounds, soft, nontender, no hepatosplenomegaly Musculoskeletal: Extremities: extremities normal to inspection Skin: no rashes, warm and dry Lymphatic: no cervical lymphadenopathy Results & Data Results & Data Vital Signs (Past 12 Hours) Vital Signs Temp Pulse Pulse Resp BP Pulse Ox O2 Del Method 08/04/22 12:15 36.8 C 79 16 133/77 97 Room Air 08/04/22 07:15 Nasal Cannula 08/04/22 07:15 75 08/04/22 07:23 36.5 C 90 16 133/77 95 Nasal Cannula 08/04/22 04:19 36.5 C 73 16 126/77 98 Nasal Cannula O2 Flow Rate 08/04/22 12:15 08/04/22 07:15 2 08/04/22 07:15 08/04/22 07:23 2 08/04/22 04:19 2.0 Critical Care Results & Data Vital Signs (Past 12 Hours) Vital Signs Temp Pulse Pulse Resp BP Pulse Ox O2 Del Method 08/04/22 12:15 36.8 C 79 16 133/77 97 Room Air 08/04/22 07:15 Nasal Cannula 08/04/22 07:15 75 08/04/22 07:23 36.5 C 90 16 133/77 95 Nasal Cannula 08/04/22 04:19 36.5 C 73 16 126/77 98 Nasal Cannula O2 Flow Rate 08/04/22 12:15 08/04/22 07:15 2 08/04/22 07:15 08/04/22 07:23 2 08/04/22 04:19 2.0 Lab & Micro Results (Past 24 Hours) RBC 3.74 M/uL (4.20-5.40) L 08/04/22 WBC 5.97 K/ul (4.8-10.8) 08/04/22 Hgb 13.3 g/dl (12.0-16.0) 08/04/22 Hct 36.2 % (37.0-47.0) L 08/04/22 MCV 96.8 fL (80.0-100.0) 08/04/22 MCH 35.6 pg (25.0-34.0) H 08/04/22 MCHC 36.7 g/dL (32.0-36.0) H 08/04/22 RDW Standard Deviation 47.3 fL (36.4-46.3) H 08/04/22 RDW Coefficient of Variation 13.1 % (11.5-14.5) 08/04/22 Plt Count 203 K/uL (130-400) 08/04/22 MPV 9.6 fL (9.4-12.4) 08/04/22 Neutrophils (%) (Auto) 64.9 % 08/04/22 Lymphocytes (%) (Auto) 12.4 % 08/04/22 Monocytes # (Auto) 1.04 K/uL (0.11-0.59) H 08/04/22 Eosinophils # (Auto) 0.28 K/uL (0-0.50) 08/04/22 Immature Granulocyte % (Auto) 0.3 % 08/04/22 Neutrophils # (Auto) 3.87 K/uL (1.40-6.50) 08/04/22 Lymphocytes # (Auto) 0.74 K/uL (1.2-3.4) L 08/04/22 Monocytes # (Auto) 1.04 K/uL (0.11-0.59) H 08/04/22 Eosinophils # (Auto) 0.28 K/uL (0-0.50) 08/04/22 Basophils # (Auto) 0.02 K/uL (0-0.2) 08/04/22 Immature Granulocyte # (Auto) 0.02 K/uL (0.01-0.20) 3 Na 126 mmol/L (136-145) L 08/04/22 K 4.1 mmol/L (3.5-5.1) 08/04/22 Cl 91 mmol/L (98-107) L 08/04/22 CO2 31 mmol/L (21-32) 08/04/22 Anion Gap 4 (3-11) 08/04/22 BUN 17 mg/dl (6-23) 08/04/22 Creatinine 0.64 mg/dl (0.6-1.2) 08/04/22 Estimated GFR ( Amer) 95.6 ml/min 08/04/22 Estimated GFR (Non-Af Amer) 82.5 ml/min 08/04/22 BUN/Creatinine Ratio 26.6 (10-20) H 08/04/22 Glu 93 mg/dl (70-99(Fasting)) 08/04/22 Ca 8.2 mg/dl (8.6-10.3) L 08/04/22 Phosphorus Level 3.5 mg/dl (2.5-4.9) 08/04/22 Mg 1.6 mg/dl (1.7-2.4) L 08/04/22 05:44 Calcium Level 8.2 mg/dl (8.6-10.3) L 08/04/22 05:44 Diagnostic Findings (Past 24 Hours) Chest X-Ray 08/03/22 15:00 XR chest 1V portable CLINICAL HISTORY: ptx, tube clamped TECHNIQUE: Single frontal radiograph of the chest was obtained. Comparison: Comparison is made to chest radiograph 08/03/2022 FINDINGS: Stable left chest tube. Stable dual lead pacemaker. The cardiomediastinal silhouette is stable. Position material is again seen in the left upper lung. There is no radiographic evidence of recurrent pneumothorax, although evaluation is again limited by superimposed subcutaneous emphysema. Stable bilateral pleural effusions. IMPRESSION: 1. No evidence of pneumothorax is seen. Stable left chest tube subcutaneous emphysema. 2. Stable bilateral pleural effusions. ACT 112: Negative or not required by law. Electronically signed by: Hamilton Leon M.D. 08/03/2022 4:08 PM Chest X-Ray 08/04/22 07:00 XR chest 1V portable CLINICAL HISTORY: Pneumothorax. COMPARISON STUDY: Chest radiograph August 03, 2022 at 3:29 PM. FINDINGS: Left pleural catheter remains in place. Postoperative findings within the left lung are present. Displaced pleural line is noted superior to the left hilum. This represents a left pneumothorax. The size of the left pneumothorax is difficult to assess by radiography. This is similar to prior radiograph of August 03, 2022. This has decreased in size since chest radiograph of August 01, 2022. There are small bilateral pleural effusions. Associated bibasilar opacities are present. Subcutaneous gas within the left chest wall and neck has decreased since initial study. Cardiomegaly is unchanged. No evidence for pulmonary edema. IMPRESSION: 1. Left pleural catheter in place. Small to moderate left apical pneumothorax. Size of pneumothorax difficult to assess by radiography but similar to prior chest radiograph and decreased from chest radiograph of August 01, 2022. 2. Small bilateral pleural effusions with associated bibasilar opacities. ACT 112: Negative or not required by law. Electronically signed by: Denton Dorsey M.D. 08/04/2022 7:[address] 08/04/22 08:13 CT chest diagnostic wo con CLINICAL HISTORY: follow up ptx TECHNIQUE: Multidetector row helical CT of the chest was performed. Coronal and sagittal reformations were obtained. Automated dose lowering techniques and/or adjustment according to patient size were utilized for this exam. CT DOSE: 236.30 mGy.cm Comparison: Comparison is made to CT chest 08/04/2022 and chest radiographs 08/04/2022 and 08/03/2022 FINDINGS: Lungs and pleura: There is a small loculated pneumothorax most prominent in the left apex. A left chest tube is seen. Postsurgical changes are seen in the lingula. Small right pleural effusion is seen. Biapical scarring and emphysema noted. Heart and pericardium: Cardiomegaly is seen with biatrial enlargement. Vessels: Moderate atherosclerotic changes in the aorta and coronary arteries. Mediastinum and caitlin: Unremarkable. Chest wall and lower neck: Small thyroid nodules are noted which do not require follow-up by ACR criteria. Subcutaneous emphysema is seen on the left. Abdomen: Partial visualization of ascites. Bones: Degenerative changes in the thoracic spine. IMPRESSION: 1. Small loculated pneumothorax with associated subcutaneous emphysema. This has significantly increased from prior CT. A chest tube is seen. 2. Emphysema and scarring. Stable right pleural effusion. 3. Biatrial enlargement is seen. 4. Partial visualization of ascites. ACT 112: Negative or not required by law. Electronically signed by: Hamilton Leon M.D. 08/04/2022 12:07 PM I & O Totals 24 Hours 08/03/22 08/04/22 08/05/22 06:59 06:59 06:59 Intake Total 460 / 460 400 / 400 Output Total 1880 / 1880 1795 / 1795 500 / 500 Balance -1420 / -1420 -1395 / -1395 -500 / -500 Cumulative 08/01/22 21:30 thru 08/04/22 09:49 Intake Total 1037.5 Output Total 4175 Balance -3137.5 RT Ventilator Mngmt (Last Documented) Ventilator Ordered Settings Respiratory Rate 16 08/04/22 12:15 Ventilator - PT Measurements Respiratory Rate 16 PG Care Time/CCT Total # of Minutes Spent Total Time Spent with Patient: Total time spent is greater than 50% in coordination of care (as documented) at patient's floor/unit and/or counseling patient: Coding Level of Care Code 33393 SUB INP/OBS CARE 2/35MIN Diagnoses Acute pneumothorax J93.83 Status post lobectomy of lung Z90.2 Subcutaneous emphysema associated with surgical procedure T81.82XA
[2022-08-04] MEDS ORDERED: APIXABAN 2.5 MG TAB PO ONE (15:00)
--- NOTE | 2022-08-04 17:11 | XRay Report ---
XR chest 1V portable CLINICAL HISTORY: ptx, tube clamped TECHNIQUE: Single frontal radiograph of the chest was obtained. Comparison: Comparison is made to chest radiograph 08/04/2022 FINDINGS: Dual lead pacemaker is seen. Left chest tube is again seen. The cardiomediastinal silhouette is stabl e. There is a small residual pneumothorax measuring approximately 24 mm in the right upper lobe. Alt bacilio it appears of distributed from prior exam, this appears overall decreased from prior exam. Smal l bilateral pleural effusions are seen. IMPRESSION: Interval decrease in size of left pneumothorax, a small pneumothorax remains measuring approximately 2.4 cm. Left chest tube is unchanged. Stable pleural effusions. ACT 112: Negative or not required by law. Electronically signed by: Hamilton Leon M.D. 08/04/2022 5:09 PM
[2022-08-04] MEDS: APIXABAN 2.5 MG TAB PO SCH (20:49)
[2022-08-04] MEDS: ROSUVASTATIN CALCIUM 20 MG TAB PO SCH (20:50)
[2022-08-04] MEDS: dilTIAZem HCL 120 MG CAPCR PO SCH (20:50)
--- NOTE | 2022-08-04 22:38 | Hospitalist Progress Note ---
Date of Service August 04, 2022 Assessment & Plan (1) Acute pneumothorax: Plan: 81-year-old female with history of left upper lobe lung adenocarcinoma s/p robotic assisted left upper lobe trisegmentectomy and mediastinal lymphadenectomy performed at [facility] 07/27/2022 presenting with acute shortness of breath. Acute hypoxic respiratory failure upon arrival with saturation of 70% on room air requiring supplemental oxygen. Presently with appropriate saturation on [address] of the chest with extensive hydropneumothorax. Patient hemodynamically stable. No mediastinal shift. No clinical concern for tension physiology at this time. Critical care occupational health and safety officer placed pigtail chest tube into her left chest confirmed by x-ray toe waterseal Continue supplemental oxygen hydropneumothorax, a complication of care patiet appears to be improving, now on nasal cannula -ct chest showing improvement of pneumothorax on 08/04 -will continue serial chest x rays. chest tube is clamped. (2) Hyponatremia: Plan: Chronic hyponatremia, unstable moderate risk now slightly wose Asymptomatic. Patient reports she is eating fairly well at home low urine and serum osmolality Fluid restriction if persistent may consider hypertonic saline (3) Atrial fibrillation: Plan: Chronic stable, Rate controlled. Patient anticoagulated on Eliquis. moderate risk Continue diltiazem 120 mg p.o. daily Hold Eliquis for possible procedure (4) HTN (hypertension): Plan: chronic unstable elevated may need to resume losartan as needed hydralazine is ordered (5) Hyperlipidemia: Plan: Chronic sable Continue Crestor 20 mg p.o. every afternoon ProphylaxisSCDs to bilateral lower extremities Codefull per discussion with patient Admission and Anticipated Discharge Date Admission Date: August 02, 2022 Subjective Patient reports she continues to have pain in her chest tube site. She does not feel short of breath. She is inquiring on the chest x ray from earlier. Review of Systems Review of Systems: All systems reviewed & are unremarkable except as noted in HPI & below Physical Exam Physical Exam: Good breath sounds. cardiac exam is regular Results & Data Results & Data Vital Signs (Past 12 Hours) Vital Signs Temp Pulse Pulse Resp BP Pulse Ox O2 Del Method 08/04/22 21:38 Room Air 08/04/22 19:13 36.4 C L 81 18 115/63 98 Nasal Cannula 08/04/22 16:45 36.7 C 72 21 123/74 95 Nasal Cannula 08/04/22 15:16 76 08/04/22 12:15 36.8 C 79 16 133/77 97 Room Air O2 Flow Rate 08/04/22 21:38 08/04/22 19:13 2 08/04/22 16:45 1.5 08/04/22 15:16 08/04/22 12:15 PG Care Time/CCT Total # of Minutes Spent Total Time Spent with Patient: Total time spent is greater than 50% in coordination of care (as documented) at patient's floor/unit and/or counseling patient: Coding Level of Care Code 03883 SUB INP/OBS CARE 2/35MIN Diagnoses Acute pneumothorax J93.83 Hyponatremia E87.1 Atrial fibrillation I48.91 HTN (hypertension) I10 Hyperlipidemia E78.5
[2022-08-05] MEDS ORDERED: HYDROmorphone INJ 0.5 MG/0.5 ML SYR IV STA ×2 (02:50→09:34)
[2022-08-05] MEDS: ACETAMINOPHEN 500 MG TAB PO SCH ×3 (05:52→20:59)
[2022-08-05 06:49] LABS: Magnesium 1.7 mg/dl (1.7-2.4); Phosphorus 3.6 mg/dl (2.5-4.9)
[2022-08-05] MEDS: LOSARTAN POTASSIUM 50 MG TAB PO SCH (07:59)
[2022-08-05] MEDS: GABAPENTIN 100 MG CAP PO SCH ×3 (07:59→20:54)
[2022-08-05] MEDS: LIDOCAINE 5% 1 PATCH TD SCH (07:59)
[2022-08-05] MEDS: APIXABAN 2.5 MG TAB PO SCH ×2 (07:59→20:54)
[2022-08-05] MEDS: DOCUSATE SODIUM/SENNA 50/8.6MG TAB PO SCH ×2 (07:59→20:59)
[2022-08-05] MEDS: FUROSEMIDE INJ 20 MG/2 ML VIAL IV SCH (08:00)
--- NOTE | 2022-08-05 08:09 | XRay Report ---
XR chest 1V portable CLINICAL HISTORY: Pneumothorax. COMPARISON STUDY: Chest radiograph at 4:[address] August 04, 2022. FINDINGS: Postoperative findings within the left lung are present. A small left apical pneumothorax i s again noted. Size of the pneumothorax is difficult to assess by radiography. A left pleural cathete r remains in place. There are small bilateral pleural effusions with bibasilar opacities. Cardiomedia stinal silhouette is stable. Left subclavian pacer is in place. IMPRESSION: 1. Left pleural catheter in place. No significant change in size of a small left apical pneumothorax, better depicted on prior chest CT. 2. Small bilateral pleural effusions with bibasilar opacities. ACT 112: Negative or not required by law. Electronically signed by: Denton Dorsey M.D. 08/05/2022 8:07 AM
--- NOTE | 2022-08-05 10:34 | Procedure Note ---
Procedure Note Date of Service August 05, 2022 Note Procedure: Removal of left 14 [place] Pleurx catheter. Proceduralist Dr. Mclain Anesthesia none Procedure: Dressing was taken down. Chest x-ray today had demonstrated stable pneumothorax with the patient being on waterseal overnight. She was given the option of removal of the catheter versus sending her home with a Heimlich valve. She would like the catheter removed and see how she does. Under full expiration the catheter was pulled and an occlusive dressing applied. The patient tolerated the procedure well. Follow-up chest x-ray in a.m.. Coding CPT Codes Pulmonary/Thoracic - Pulmonary and Thoracic: 02092 Remove lung catheter ([id number]) [facility] [place]odes (Charges) Pulmonary/Thoracic Procedure 1: Pulmonary and Thoracic: 48432 Remove lung catheter
--- NOTE | 2022-08-05 10:40 | Pulmonology Progress Note ---
Date of Service August 05, 2022 Assessment & Plan (1) Acute pneumothorax: (2) Status post lobectomy of lung: (3) Subcutaneous emphysema associated with surgical procedure: Plan Impression: 81-year-old female status post sublobar resection for adenocarcinoma with pneumothorax status postplacement of 14 Sinhala pigtail catheter. Chest x- ray and CT scan confirmed presence of persistent pneumothorax. She tolerated a clamping trial for about 4 hours yesterday without any significant expansion in the pneumothorax. She has been on waterseal overnight with no significant expansion of the pneumothorax Recommendations: 1. Pneumothorax: Discussed options with the patient including sending her home with the pigtail in place with Heimlich valve versus removal of the catheter and observation. She would like to see how she does with the catheter out. We will remove it today and repeat a chest x-ray in the morning. If the pneumothorax recurs or expands, may need to reengage thoracic surgery at [place]. 2. Postoperative pain: Significantly improved. Continue gabapentin 100 mg p.o. 3 times daily. Continue Lidoderm 3. Hypoxemia: Significantly improved. Continue to wean oxygen as tolerated. Continue diuresis as tolerated. 4. Continue to increase activity as tolerated. Continue to follow with you. Follow-up chest x-ray in a.m. Admission and Anticipated Discharge Date Admission Date: August 02, 2022 Subjective Patient seen and examined. EMR reviewed. The patient is complaining of some mild discomfort in the left chest. Her tube was clamped yesterday for about 4 hours with no evidence of expansion of the pneumothorax. She was placed back to waterseal overnight. Review of Systems Review of Systems: All systems reviewed & are unremarkable except as noted in Subjective Physical Exam Constitutional: WD/WN, vitals as above Neck: trachea midline, no thyromegaly Respiratory: normal respiratory effort, lungs clear to auscultation Cardiovascular: RRR, no murmur, no edema Gastrointestinal (Abdomen): normal bowel sounds, soft, nontender, no hepatosplenomegaly Musculoskeletal: Extremities: extremities normal to inspection Skin: no rashes, warm and dry Lymphatic: no cervical lymphadenopathy Results & Data Results & Data Vital Signs (Past 12 Hours) Vital Signs Temp Pulse Pulse Resp BP Pulse Ox O2 Del Method 08/05/22 07:30 Nasal Cannula 08/05/22 07:30 66 08/05/22 07:17 36.6 C 68 20 141/69 H 92 Nasal Cannula 08/05/22 02:42 36.4 C L 70 16 117/71 95 Nasal Cannula 08/04/22 23:45 80 08/04/22 22:43 36.4 C L 73 16 104/56 L 97 Nasal Cannula O2 Flow Rate 08/05/22 07:30 2 08/05/22 07:30 08/05/22 07:17 2 08/05/22 02:42 2 08/04/22 23:45 08/04/22 22:43 2 Laboratory Results Chest x-ray today was reviewed. The pigtail catheter appears to be in good position. Stable apical pneumothorax. PG Care Time/CCT Total # of Minutes Spent Total Time Spent with Patient: Total time spent is greater than 50% in coordination of care (as documented) at patient's floor/unit and/or counseling patient: Coding Level of Care Code 90710 SUB INP/OBS CARE 235MIN Diagnoses Acute pneumothorax J93.83 Status post lobectomy of lung Z90.2 Subcutaneous emphysema associated with surgical procedure T81.82XA
[2022-08-05] MEDS: dilTIAZem HCL 120 MG CAPCR PO SCH (20:54)
[2022-08-05] MEDS: ROSUVASTATIN CALCIUM 20 MG TAB PO SCH (20:59)
--- NOTE | 2022-08-05 21:03 | Hospitalist Progress Note ---
Date of Service August 05, 2022 Assessment & Plan (1) Acute pneumothorax: Plan: 81-year-old female with history of left upper lobe lung adenocarcinoma s/p robotic assisted left upper lobe trisegmentectomy and mediastinal lymphadenectomy performed at [facility] 07/27/2022 presenting with acute shortness of breath. Acute hypoxic respiratory failure upon arrival with saturation of 70% on room air requiring supplemental oxygen. Presently with appropriate saturation on [address] of the chest with extensive hydropneumothorax. Patient hemodynamically stable. No mediastinal shift. No clinical concern for tension physiology at this time. Critical care job coaching placed pigtail chest tube into her left chest confirmed by x-ray toe waterseal Continue supplemental oxygen hydropneumothorax, a complication of care patiet appears to be improving, now on nasal cannula -ct chest showing improvement of pneumothorax on 08/04 -will continue serial chest x rays. chest tube is clamped. removed chest tube on 08/05 will repeat x ray on 08/06, if normal, will discharge (2) Hyponatremia: Plan: Chronic hyponatremia, unstable moderate risk now slightly wose Asymptomatic. Patient reports she is eating fairly well at home low urine and serum osmolality Fluid restriction if persistent may consider hypertonic saline (3) Atrial fibrillation: Plan: Chronic stable, Rate controlled. Patient anticoagulated on Eliquis. moderate risk Continue diltiazem 120 mg p.o. daily Hold Eliquis for possible procedure (4) HTN (hypertension): Plan: chronic unstable elevated may need to resume losartan as needed hydralazine is ordered (5) Hyperlipidemia: Plan: Chronic sable Continue Crestor 20 mg p.o. every afternoon ProphylaxisSCDs to bilateral lower extremities Codefull per discussion with patient Admission and Anticipated Discharge Date Admission Date: August 02, 2022 Subjective 81 yo female reports feeling well. Her pain has subsided after chest tube removed. Review of Systems Review of Systems: All systems reviewed & are unremarkable except as noted in HPI & below Physical Exam Physical Exam: Good breath sounds. cardiac exam is regular Results & Data Results & Data Vital Signs (Past 12 Hours) Vital Signs Temp Pulse Pulse Resp BP Pulse Ox O2 Del Method 08/05/22 19:49 36.5 C 79 16 96/54 L 93 Room Air 08/05/22 15:44 36.9 C 72 16 121/68 92 Room Air 08/05/22 15:19 76 08/05/22 10:00 95 Room Air 08/05/22 11:35 36.6 C 86 18 97/74 L 90 Nasal Cannula O2 Flow Rate 08/05/22 19:49 08/05/22 15:44 08/05/22 15:19 08/05/22 10:00 08/05/22 11:35 2 PG Care Time/CCT Total # of Minutes Spent Total Time Spent with Patient: Total time spent is greater than 50% in coordination of care (as documented) at patient's floor/unit and/or counseling patient: Coding Level of Care Code 63848 SUB INP/OBS CARE 2/35MIN Diagnoses Acute pneumothorax J93.83 Hyponatremia E87.1 Atrial fibrillation I48.91 HTN (hypertension) I10 Hyperlipidemia E78.5
[2022-08-06] MEDS: ACETAMINOPHEN 500 MG TAB PO SCH ×2 (06:31→14:22)
[2022-08-06 07:20] LABS: Magnesium 1.8 mg/dl (1.7-2.4); Phosphorus 3.8 mg/dl (2.5-4.9)
--- NOTE | 2022-08-06 07:50 | XRay Report ---
XR chest 1V portable CLINICAL HISTORY: Pneumothorax. COMPARISON STUDY: Chest radiograph August 05, 2022. FINDINGS: Postoperative findings within the left lung are again noted. The left pleural catheter has been removed. A small left apical pneumothorax is unchanged. Dual-lead left subclavian pacer is in pl [facility]. There are small bilateral pleural fusions. Lower lung airspace opacities have improved. Cardiome deann is unchanged. No evidence for overt pulmonary edema. IMPRESSION: 1. No change in a small left apical pneumothorax following left pleural catheter removal. 2. Small bilateral pleural effusions with interval decrease in bibasilar opacities. ACT 112: Negative or not required by law. Electronically signed by: Denton Dorsey M.D. 08/06/2022 7:49 AM
[2022-08-06] MEDS: LOSARTAN POTASSIUM 50 MG TAB PO SCH (08:15)
[2022-08-06] MEDS: GABAPENTIN 100 MG CAP PO SCH ×2 (08:15→14:23)
[2022-08-06] MEDS: DOCUSATE SODIUM/SENNA 50/8.6MG TAB PO SCH (08:15)
[2022-08-06] MEDS: APIXABAN 2.5 MG TAB PO SCH (08:15)
[2022-08-06] MEDS: LIDOCAINE 5% 1 PATCH TD SCH (08:16)
[2022-08-06] MEDS: FUROSEMIDE INJ 20 MG/2 ML VIAL IV SCH (08:20)
--- NOTE | 2022-08-06 11:37 | Pulmonology Progress Note ---
Date of Service August 06, 2022 Assessment & Plan (1) Acute pneumothorax: (2) Status post lobectomy of lung: (3) Subcutaneous emphysema associated with surgical procedure: Plan Impression: 81-year-old female status post sublobar resection for adenocarcinoma with pneumothorax status postplacement of 14 Faroese pigtail catheter. Chest x- ray and CT scan confirmed presence of persistent pneumothorax. Chest tube was removed yesterday. Chest x-ray today demonstrates no significant progression of the pneumothorax. Recommendations: 1. Pneumothorax: Chest tube out. X-rays stable. At this point time the patient can be dismissed from the hospital. Recommend that she follow-up with the outpatient pulmonary clinic in 1 to 2 weeks with a follow-up chest x-ray. 2. Postoperative pain: Significantly improved. Continue gabapentin 100 mg p.o. 3 times daily. Continue Lidoderm 3. Hypoxemia: Resolved 4. Continue to increase activity as tolerated. Okay to dismiss from the hospital with outpatient pulmonary follow-up as noted above. Feel free to contact us with questions or concerns. Admission and Anticipated Discharge Date Admission Date: August 02, 2022 Subjective Patient seen and examined. MAR reviewed. She is awake alert and conversant. H er chest pain is resolved after removing the chest tube. She is not experiencing any cough or shortness of breath. No wheezing. She denies fevers chills or night sweats. Her appetite is improved. She has been ambulatory to some degree. Review of Systems Review of Systems: All systems reviewed & are unremarkable except as noted in Subjective Physical Exam Constitutional: WD/WN, vitals as above Neck: trachea midline, no thyromegaly Respiratory: normal respiratory effort, lungs clear to auscultation Cardiovascular: RRR, no murmur, no edema Gastrointestinal (Abdomen): normal bowel sounds, soft, nontender, no hepatosplenomegaly Musculoskeletal: Extremities: extremities normal to inspection Skin: no rashes, warm and dry Lymphatic: no cervical lymphadenopathy Results & Data Results & Data Vital Signs (Past 12 Hours) Vital Signs Temp Pulse Pulse Resp BP Pulse Ox O2 Del Method 08/06/22 08:30 Room Air 08/06/22 07:21 36.6 C 88 16 113/72 95 Room Air 08/06/22 00:00 62 08/06/22 02:37 36.6 C 75 18 147/97 H 98 Nasal Cannula O2 Flow Rate 08/06/22 08:30 08/06/22 07:21 08/06/22 00:00 08/06/22 02:37 2 Laboratory Results 08/04/22 05:44 08/04/22 05:44 Diagnostic Findings Chest x-ray from today was independently reviewed. There is a stable apical pneumothorax without any significant evidence of progression. PG Care Time/CCT Total # of Minutes Spent Total Time Spent with Patient: Total time spent is greater than 50% in coordination of care (as documented) at patient's floor/unit and/or counseling patient: Coding Level of Care Code 65160 SUB INP/OBS CARE 2/35MIN Diagnoses Acute pneumothorax J93.83 Status post lobectomy of lung Z90.2 Subcutaneous emphysema associated with surgical procedure T81.82XA
--- NOTE | 2022-08-06 12:16 | Discharge Summary ---
Date of Service August 06, 2022 Admission HPI Per Admitting Provider Rebekah Romero is an 81-year-old female presenting with shortness of breath. Patient with left upper lobe adenocarcinoma of the lung which was discovered in April 2022. She underwent a robotic assisted left upper lobe trisegmentectomy and mediastinal lymphadenectomy performed by Dr. Herrmann at [facility] on 07/27/2022. The surgery was well-tolerated. Patient had a chest tube in place postoperatively which was removed on 07/29/2022. Patient was discharged home in stable condition on 07/29/2022. She did note that she had subcutaneous air at her left neck which her care team was aware of as well. Patient presents this evening with complaint of bilateral lower extremity edema as well as shortness of breath and dyspnea on exertion. She denies chest pain, neck pain, difficulty swallowing, cough or hoarseness. Denies fevers, chills, abdominal pain, nausea, vomiting, diarrhea, constipation. Patient hypoxic upon arrival at 70% on room air. She was placed on supplemental oxygen and is currently 94% on oxy mask. CT scan of the chest with results belowin summation reveal postoperative changes of left thoracotomy and wedge resection of the left upper lobe with 40 to 50% left hydropneumothorax without mediastinal shift as well as extensive left wall emphysema and mild pneumomediastinum. ER course: Supplemental oxygen Discharge Data Allergies Allergy/AdvReac Type Severity Reaction Status Date / Time Penicillins AdvReac Intermediate GI UPSET Verified 08/01/22 23:56 Consultations 08/02/22 00:23 ED Decision to Admit Stat 08/02/22 01:52 Consult Website/Blog Editor Routine Ordered Studies 08/01/22 23:04 CT chest diagnostic wo con Stat 08/04/22 08:13 CT chest diagnostic wo con Routine Hospital Course (1) Acute pneumothorax: 81-year-old female with history of left upper lobe lung adenocarcinoma s/p robotic assisted left upper lobe trisegmentectomy and mediastinal lymphadenectomy performed at [facility] 07/27/2022 presenting with acute shortness of breath. Acute hypoxic respiratory failure upon arrival with saturation of 70% on room air requiring supplemental oxygen. Presently with appropriate saturation on [address] of the chest with extensive hydropneumothorax. Patient hemodynamically stable. No mediastinal shift. No clinical concern for tension physiology at this time. Critical care utilization management manager placed pigtail chest tube into her left chest confirmed by x-ray toe waterseal Continue supplemental oxygen hydropneumothorax, a complication of care patiet appears to be improving, now on nasal cannula -ct chest showing improvement of pneumothorax on 08/04 -will continue serial chest x rays. chest tube is clamped. removed chest tube on 08/05 will repeat x ray on 08/06, if normal, will discharge (2) Hyponatremia: Chronic hyponatremia, unstable moderate risk now slightly wose Asymptomatic. Patient reports she is eating fairly well at home low urine and serum osmolality Fluid restriction if persistent may consider hypertonic saline (3) Atrial fibrillation: Chronic stable, Rate controlled. Patient anticoagulated on Eliquis. moderate risk Continue diltiazem 120 mg p.o. daily Hold Eliquis for possible procedure (4) HTN (hypertension): chronic unstable elevated may need to resume losartan as needed hydralazine is ordered (5) Hyperlipidemia: Chronic sable Continue Crestor 20 mg p.o. every afternoon ProphylaxisSCDs to bilateral lower extremities Codefull per discussion with patient Discharge Plan Discharge Items Reason For Visit: SOB Follow-up/Referrals: Vilma Contreras MD [Primary Care Provider] - Addtl Attending Provider Instructions: Recommend that you follow-up with the outpatient pulmonary clinic in 1 to 2 weeks with a follow-up chest x-ray. Continue gabapentin 100 mg 3 times daily for your pain as well as your Lidoderm patch. Continue to increase activity as tolerated. Stand-Alone Forms: My Engage, Smoking Cessation Medications and DC Order Prescriptions: No Action rosuvastatin 20 mg tablet 20 mg PO QPM Qty: 90 3RF Simbrinza 1-0.2 % drops,suspension 1 drp ophthalmic (eye) BID Qty: 8 2RF losartan 50 mg tablet 50 mg PO DAILY diltiazem HCl 120 mg capsule,extended release 24hr 120 mg PO DAILY Qty: 90 0RF Eliquis 5 mg tablet 5 mg PO BID multivitamin Tablet 1 tab PO DAILY naproxen 250 mg Tablet 250 mg PO BID Rx Instructions: STARTED 07/29/22 FOR 14 DAYS acetaminophen [Tylenol Extra Strength] 500 mg Tablet 1,000 mg PO Q8H Rx Instructions: STARTED 07/29/22 FOR 14 DAYS gabapentin 300 mg Capsule 300 mg PO TID Rx Instructions: STARTED 07/29/22 FOR 14 DAYS oxycodone 5 mg Tablet 2.5 mg PO Q4H PRN (Reason: Pain (Scale Score 4-6)) Senna Plus 8.6-50 mg Capsule 1 tab-cap PO BID Rx Instructions: STARTED 07/29/22 FOR 10 DAYS mupirocin 2 % ointment 1 applic topical BID PRN (Reason: Skin Irritation) Admission Data Admit Date/Time: 08/02/22 00:57 Attending Provider: Lamberto Holcomb Admit Provider: Kimberly Laguerre Primary Care Provider: Vilma Contreras Other Providers: Kimberly Laguerre ; Lucien Mclain Coding Diagnoses Acute pneumothorax J93.83 Hyponatremia E87.1 Atrial fibrillation I48.91 HTN (hypertension) I10 Hyperlipidemia E78.5
[2022-08-06 13:03] LABS: Hematocrit (blood only) 40.5 % (37.0-47.0); Hemoglobin 14.2 g/dl (12.0-16.0); Mean Corpuscular Hemoglobin 35.1 pg (25.0-34.0); Mean Corpuscular Hgb Conc 35.1 g/dL (32.0-36.0); Mean Platelet Volume 9.2 fL (9.4-12.4); Platelet Count 273 K/uL (130-400); RDW Coefficient of Variation 13.6 % (11.5-14.5); RDW Standard Deviation 50.4 fL (36.4-46.3); Red Blood Count 4.05 M/uL (4.20-5.40); White Blood Count 7.14 K/ul (4.8-10.8)
[2022-08-06 13:18] LABS: BUN Creatinine Ratio 16.5 (10-20); Calcium 9.1 mg/dl (8.6-10.3); Creatinine Clr Calc Pharmacy 29.5 ml/min; Est GFR (African American) 54.4 ml/min; Est GFR (Non-African American) 46.9 ml/min
== END 2022-08-06 15:45 | disposition home or self-care (01) | DRG 199 ==
LOC: ED 21:30 → 1E 08-02 00:57 → SUATTDRO 08-02 00:57 → 1E 08-02 01:35 → 2E 08-03 19:09

== ENCOUNTER 2024-11-20 00:34 | Observation (INO) ==
--- NOTE | 2024-11-20 00:47 | Emergency Department Note ---
Impression & Plan Recurrent pleural effusion, Hypoxia, Pulmonary hypertension ED Provider Note NAME: PRO BOB AGE: 84 SEX: F : 1940 ARRIVES VIA: Walk-In INFORMANT: Patient ED PROVIDER(S): Abdulaziz Philippe MD CHIEF COMPLAINT: Shortness of breath, pleural effusion. 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 However she reports her symptoms worsened and so she presents emergency department for evaluation. Patient correlates the increasing frequency of need for thoracentesis to initiation of sildenafil for her pulmonary hypertension. She reports she has been taking her Bumex but felt as though her urination has not responded until she stopped the sildenafil. Patient reports she held her Eliquis as of Sunday in preparation for her thoracentesis on Sunday. She reports she weighs herself daily and has had increased weight gain. On evaluation the patient is no distress, afebrile with O2 saturation 77% on room air improving to low 90s on 5 L nasal cannula and vital signs otherwise stable. She appears hypervolemic with 2+ bilateral lower extremity pitting edema. Diminished breath sounds of right mid-lower lung jones. EKG without overt acute ischemia. Chest x-ray demonstrates reaccumulation of right-sided pleural effusion compared to 11/12 per my preliminary independent interpretation. WBC, H/H, platelets wnl. Chemistry without acidosis. Cr. 1.24 mildly increased from baseline. Potassium 3.1 with PO repletion provided. LFTs without significant abnormality. HS Troponin 41.7 and BNP 521 in the setting of patient's hypervolemia in the setting of history of pulmonary hypertension. Lipase wnl. Patient agrees with plan for admission for further management given need for thoracentesis but also additional management of her volume overload. Treatment initiated with IV Bumex. Case was discussed [place] [facility] [place], who will evaluate the patient for admission. Further management per admitting team. Triage Nursing notes reviewed and agree them. Prior/external medical records reviewed Vital Signs: reviewed Differential diagnosis: Reactive airway disease, pneumonia, pneumothorax, COPD, CHF, infections, cardiac ischemia, pulmonary embolism, musculoskeletal, gastrointestinal, as well as other pathologies. ER treatment provided: See below. Diagnostics interpreted by me: ECG: Atrial fibrillation, 75 bpm, occasional ventricular paced complexes, no overt acute ischemia. Cardiac Monitoring: An order for continuous cardiac monitoring was placed and demonstrated Atrial fibrillation, 75 bpm, occasional ventricular paced complexes. Laboratory studies: See below Imaging studies: See below Consultation(s): DEVYN Perez hospitalist. HPI: Per MDM. ROS: See above HPI for pertinent positives & negatives. A total of 10 systems reviewed and were otherwise negative. VITALS:See Below PHYSICAL EXAMINATION: GENERAL: Awake, alert, in no distress HENT: Normocephalic, atraumatic. Oropharynx unremarkable. EYES: Normal conjunctiva. Sclera non-icteric. NECK: Supple. No nuchal rigidity. FROM. No JVD. RESPIRATORY: Diminished breath sounds of right mid-lower lung jones. CARDIAC: Regular rate, irregular rhythm. Extremities warm and well perfused. Pulses equal. ABDOMEN: Soft, non-distended. No tenderness to palpation. No rebound or guarding. No masses. MUSCULOSKELETAL: Chest examination reveals no tenderness. The back is symmetrical on inspection without obvious abnormality. There is no CVA tenderness to palpation. No joint edema. LOWER EXTREMITIES: Calves are equal size bilaterally and non-tender. 2+ BLE pitting edema. No discoloration. NEURO: Normal sensorium. No sensory or motor deficits noted. SKIN: No rash or jaundice noted. Abdulaziz Philippe MD Past Med/Surg History Problem List (Updated 11/20/24 @ 09:26 by Hamilton Beasley DO) Heart failure with preserved ejection fraction Acute respiratory failure with hypoxia (Acute) Pulmonary hypertension (Acute) Chronic venous insufficiency Recurrent pleural effusion (Acute) Atrial fibrillation (Chronic) on eliquis; follows with Dr. Gómez & Dr. Abreu HTN (hypertension) (Chronic) Osteoporosis (Chronic) Hyperlipidemia (Chronic) Generalized anxiety disorder (Chronic) Mitral valve prolapse (Chronic) COPD (chronic obstructive pulmonary disease) Adenocarcinoma, lung (Acute) Medical History (Updated 11/20/24 @ 09:26 by Hamilton Beasley DO) Acute pneumothorax Gastritis History of colon polyps Dysphagia GERD (gastroesophageal reflux disease) Amputated toe Leg wound, left Cancer of upper lobe of left lung Hyponatremia Subcutaneous emphysema associated with surgical procedure Scoliosis History of breast cancer dx'd 2019 - right breast - hx lumpectomy + radiation History of migraine IBS (irritable bowel syndrome) SVT (supraventricular tachycardia) Family history of colon cancer Surgical History S/P thoracentesis Status post lobectomy of lung History of cardiac radiofrequency ablation x 2 History of esophagogastroduodenoscopy (EGD) History of colonoscopy S/P cardiac pacemaker procedure 2014 - A.fib - [facility] - last check 02/2021 per pt H/O breast surgery S/P eye surgery macular hole S/P bunionectomy History of appendectomy Family History Mother Breast cancer Colorectal cancer Aunt Breast cancer Colorectal cancer Sister Breast cancer Colorectal cancer Father Myocardial infarction Other Family history of colon cancer No family history of adverse response to anesthesia Denies family history of Ovarian cancer Prostate cancer Social History Smoking Status: Never smoker Tobacco Type: Cigarettes Age Started Using Tobacco: 18; Age Quit Using Tobacco: 37; packs per day: 0.5; Cigarettes Per Day: 20 yr for 1/5 pack per day; Second Hand Exposure: No; Do You Dip or Chew Tobacco: No; Hx Alcohol Use: No Hx Substance Use: No Preferred Language: Cuban Communication Ability: Effective Visual Impairment: No Limitations Hearing Ability: Normal Upholsterer Assembly Line Required: No Beliefs That Will Affect Care: None marital status: / Current Living Situation: Alone current occupational status: retired How many Children do You have: 4 Feels Safe at Home: Yes Childhood Exposure to Second-Hand Smoke: Yes Dental Care, Regularly: Yes Physical Activity Frequency: Daily Seatbelt Use: always Sunscreen Use: Yes Assistive Devices: None Allergies Allergies Allergy/AdvReac Type Severity Reaction Status Date / Time amoxicillin AdvReac Intermediate C DiFF Verified 10/23/24 13:36 Home Meds Home Medications Medication Instructions Recorded Confirmed multivitamin 1 tab PO DAILY 08/01/22 11/20/24 bumetanide 1 mg tablet 3 mg PO AMPM 11/20/24 11/20/24 dapagliflozin propanediol 10 mg 10 mg PO QAM 11/20/24 11/20/24 tablet (Farxiga) diltiazem HCl 120 mg 240 mg PO QPM 11/20/24 11/20/24 capsule,extended release 24 hr Previous Rx's Medication Instructions Recorded rosuvastatin 20 mg tablet 20 mg PO QPM #90 tabs 08/06/24 apixaban 5 mg tablet (Eliquis) 5 mg PO BID #60 tabs 11/04/24 Results & Data (ED) Vital Signs Vital Signs - 24 hr 11/20/24 00:36 11/20/24 00:47 11/20/24 01:10 Temperature 36.5 C Temperature Source Temporal Artery Scan Pulse Rate 88 Pulse Rate from SpO2 Sensor Respiratory Rate 19 Blood Pressure 120/75 Blood Pressure Mean 90 Pulse Oximetry 77 L 93 91 Oxygen Delivery Method Room Air Nasal Cannula Nasal Cannula Oxygen Flow Rate 4 5 Sepsis Recent Fever Within 48 Hours No Sepsis New/Unexplained Change in Mental Status N/A Sepsis Action Taken by Nursing No Action Required 11/20/24 01:36 11/20/24 02:00 11/20/24 02:15 Temperature Temperature Source Pulse Rate 84 74 75 Pulse Rate from SpO2 Sensor 81 75 76 Respiratory Rate 23 22 29 H Blood Pressure 131/86 121/72 Blood Pressure Mean 101 88 Pulse Oximetry 92 91 90 Oxygen Delivery Method Nasal Cannula Nasal Cannula Oxygen Flow Rate 6 6 Sepsis Recent Fever Within 48 Hours Sepsis New/Unexplained Change in Mental Status Sepsis Action Taken by Nursing Laboratory Data Attestation: I reviewed the patient's lab results. 11/20/24 00:56 11/20/24 03:07 Lab Results 11/20/24 Range/Units 00:56 WBC 7.15 (4.8-10.8) K/ul RBC 4.13 L (4.20-5.40) M/uL Hgb 14.4 (12.0-16.0) g/dl Hct 43.9 (37.0-47.0) % MCV 106.3 H (80.0-100.0) fL MCH 34.9 H (25.0-34.0) pg MCHC 32.8 (32.0-36.0) g/dL RDW Std Deviation 65.8 H (36.4-46.3) fL RDW Coeff of [place] 17.3 H (11.5-14.5) % Plt Count 163 (130-400) K/uL MPV 9.9 (9.4-12.4) fL Immature Gran % (Auto) 0.3 % Neut % (Auto) 79.5 % Lymph % (Auto) 7.1 % [place] % (Auto) 11.2 % Eos % (Auto) 1.3 % Baso % (Auto) 0.6 % Neut # (Auto) 5.69 (1.40-6.50) K/uL Lymph # (Auto) 0.51 L (1.20-3.40) K/uL [place] # (Auto) 0.80 H (0.11-0.59) K/uL Eos # (Auto) 0.09 (0.00-0.50) K/uL Baso # (Auto) 0.04 (0.00-0.20) K/uL Immature Gran # (Auto) 0.02 (0.01-0.20) K/uL PT 12.7 H (9.0-12.0) Seconds INR 1.2 H (0.9-1.1) Sodium 137 (136-145) mmol/L Potassium 3.1 L (3.5-5.1) mmol/L Chloride 95 L (98-107) mmol/L Carbon Dioxide 32 (21-32) mmol/L Anion Gap 10 (3-11) BUN 51 H (6-23) mg/dl Creatinine 1.24 H (0.6-1.2) mg/dl Est Cr Clr Drug Dosing 25.0 ml/min eGFR 42.38 BUN/Creatinine Ratio 41.1 H (10-20) Glucose 110 H (70-99(Fasting)) mg/dl Calcium 9.0 (8.6-10.3) mg/dl Total Bilirubin 1.0 (0.2-1.0) mg/dl AST 32 (13-39) U/L ALT 21 (7-52) U/L Alkaline Phosphatase 117 H (34-104) U/L Troponin I High Sens 41.7 H (0-14) pg/ml B-Natriuretic Peptide 521 H (0-100) pg/ml Total Protein 6.4 (6.0-8.3) gm/dl Albumin 3.9 (3.4-5.0) gm/dl Globulin 2.5 (2.5-4.0) gm/dl Albumin/Globulin Ratio 1.6 (0.9-2) Lipase 20 (11-82) U/L Procalcitonin 0.24 (0-0.5) ng/ml Administered Medications Bumetanide 2 mg/ Syringe 8 mls @ 4 mls/min IV BID@0900,1700 MANE Stop: 12/20/24 08:59 Last Admin: 11/20/24 10:55 Dose: 4 mls/min Documented By: KTS Discontinued Medications Bumetanide 2 mg/ Syringe 8 mls @ 4 mls/min IV ONE ONE Stop: 11/20/24 01:43 Last Admin: 11/20/24 02:17 Dose: 4 mls/min Documented By: YUE Potassium Chloride (Potassium Chloride Crtab 20 Meq Tabcr) 40 meq PO NOW STA Stop: 11/20/24 01:43 Last Admin: 11/20/24 02:17 Dose: 40 meq Documented By: YUE Imaging Data Radiologist's Impression: Chest X-Ray 11/20/24 00:47 EXAM: XR chest 1V portable CLINICAL HISTORY: sob TECHNIQUE: Radiograph of chest was acquired. COMPARISON: 11/12/2024 12:20:08 THREAD TRIMMER FINDINGS: Blunted bilateral costophrenic angles, (right left) with hazy opacities in underlying bilateral lower zones. Reticular opacities in rest of the lung jones, likely age related septal thickening. Implantable cardiac device in situ. The cardiomediastinal silhouette is within normal limits. No acute osseous abnormality. IMPRESSION: 1. Blunted bilateral costophrenic angles, (right left) suggestive of pleural effusion with hazy opacities in underlying bilateral lower zones. (Increased bilteral pleural effusion compared to previous radiograph) 2. Reticular opacities in rest of the lung jones, likely age related septal thickening. Electronically signed by Ander Salas 11-20-2024 02:21 AM Discharge Plan Visit Data Chief Complaint: Edema To Extremity Stated Complaint: SWELLING IIN LEGS O2 DOWN ED Provider: Abdulaziz Philippe Discharge Problem: Recurrent pleural effusion, Hypoxia, Pulmonary hypertension Patient Disposition: Admitted As Inpatient Condition: Fair Discharge Instructions Interventions: ED Discharge Assessment Last Done: 11/20/24 03:37
[2024-11-20 01:10] LABS: Hematocrit (blood only) 43.9 % (37.0-47.0); Hemoglobin 14.4 g/dl (12.0-16.0); Immature Granulocytes # (auto) 0.02 K/uL (0.01-0.20); Immature Granulocytes % (auto) 0.3 %; Mean Corpuscular Hemoglobin 34.9 pg (25.0-34.0); Mean Corpuscular Volume 106.3 fL (80.0-100.0); Platelet Count 163 K/uL (130-400); RDW Standard Deviation 65.8 fL (36.4-46.3); Red Blood Count 4.13 M/uL (4.20-5.40); White Blood Count 7.15 K/ul (4.8-10.8)
[2024-11-20 01:26] LABS: Alanine Aminotransferase 21.0 U/L (7-52); Albumin Globulin Ratio 1.6 (0.9-2); Alkaline Phosphatase 117.0 U/L (34-104); Anion Gap 10.0 (3-11); Bilirubin,Total 1.0 mg/dl (0.2-1.0); Blood Urea Nitrogen 51.0 mg/dl (6-23); Calcium 9.0 mg/dl (8.6-10.3); Carbon Dioxide 32.0 mmol/L (21-32); Chloride 95.0 mmol/L (98-107); Creatinine Clr Calc Pharmacy 25.0 ml/min; Globulin 2.5 gm/dl (2.5-4.0); Glucose 110.0 mg/dl (70-99(Fasting)); Lipase 20.0 U/L (11-82); Potassium 3.1 mmol/L (3.5-5.1); Sodium 137.0 mmol/L (136-145); Total Protein 6.4 gm/dl (6.0-8.3)
[2024-11-20 01:33] LABS: INR 1.2 (0.9-1.1); Prothrombin Time 12.7 Seconds (9.0-12.0)
[2024-11-20] MEDS: POTASSIUM CHLORIDE CRTAB 20 MEQ TABCR PO STA (02:17)
[2024-11-20] MEDS: BUMETANIDE 2 MG in SYRINGE 0 ML IV ONE (02:17)
--- NOTE | 2024-11-20 02:26 | History & Physical Report ---
Date of Service November 20, 2024 Assessment & Plan (1) Recurrent pleural effusion: (2) Hypoxia: (3) Atrial fibrillation: (4) HTN (hypertension): (5) Pulmonary hypertension: Plan 84-year-old female with history of recurrent pleural effusions status post multiple thoracenteses presenting with acute hypoxic respiratory failure secondary to recurrent pleural effusion. Patient in no respiratory distress at present but is hypoxic. Presently saturating 90% on 6 L/min She has on Eliquis with her last dose being 11/17/2019 5 AM #Acute hypoxic respiratory failure secondary to recurrent pleural effusion secondary to underlying CHF. Patient given Bumex 2 mg IV in the ER. She has been compliant with her home Bumex 2 mg p.o. twice daily. She does endorse bilateral lower extremity edema as well as weight gain Admit to medical telemetry Continue supplemental oxygen as needed with continuous pulse oximetry Monitor response to Bumex 2 mg IV Repeat Bumex dosing 2 mg IV twice daily Monitor BMP every 12 hours to assess renal function and electrolytes Pulmonary consultation appreciated for thoracentesis Continue to hold Eliquis #Atrial fibrillationrate controlled Continue diltiazem 240 mg p.o. every afternoon Continue to hold Eliquis #Hypertension Continue diltiazem Continue to monitor #Hyperlipidemia Continue Crestor 20 mg p.o. every afternoon #Pulmonary hypertension patient has stopped her home sildenafil Pulmonary consultation appreciated Patient encouraged to comply with her home medications History of Present Illness Chief Complaint: shortness of breath Primary Care Provider: Vilma Lopez MD Nanci Romero Is an 84-year-old female with history of atrial fibrillation on apixaban anticoagulation (last dose on 11/18/2019 5 AM), hypertension, h yperlipidemia, COPD and lung adenocarcinoma status post left upper lobe resection in 2022 presenting with shortness of breath and recurrence of right sided pleural effusion. Patient with recurrent right-sided pleural effusion. Has had multiple thoracenteses in the past. Her last thoracentesis was last week on 11/12/2024 during which they removed approximately 1 L of straw-colored fluid. On 11/17/2024 patient began to develop some mild shortness of breath which has progressed. She called pulmonary and scheduled a thoracentesis to be performed on 11/20/2024. She presents tonight with worsening shortness of breath. Also reports progressive bilateral lower extremity edema over the last few days as well as weight gain. She typically weighs 98 to 100 pounds and weighs 104 pounds today. Patient was taking sildenafil for diagnosis of pulmonary hypertension. She reports that this caused her some GI upset therefore she stopped it on her own. She did resume it in late May and reports since doing this she has had more rapidly accumulating pleural fluid. She then self discontinued this medication again with her last dose being yesterday. In the ER she is afebrile, hemodynamically stable, hypoxic in the ER to 77%. Now on 6 L nasal cannula saturating 90% ER course: Potassium 40 mEq p.o. Bumex 2 mg IV Allergies Allergy/AdvReac Type Severity Reaction Status Date / Time amoxicillin AdvReac Intermediate C DiFF Verified 10/23/24 13:36 Penicillins AdvReac Intermediate GI UPSET Verified 10/23/24 13:36 Home Medications Medication Instructions Recorded Confirmed Type multivitamin 1 tab PO DAILY 08/01/22 11/20/24 History rosuvastatin 20 mg tablet 20 mg PO QPM #90 tabs 08/06/24 11/20/24 Rx apixaban 5 mg tablet (Eliquis) 5 mg PO BID #60 tabs 11/04/24 11/20/24 Rx bumetanide 1 mg tablet 3 mg PO AMPM 11/20/24 11/20/24 History dapagliflozin propanediol 10 mg 10 mg PO QAM 11/20/24 11/20/24 History tablet (Farxiga) diltiazem HCl 120 mg 240 mg PO QPM 11/20/24 11/20/24 History capsule,extended release 24 hr Past Med/Surg History Problem List Pulmonary hypertension (Acute) Hypoxia (Acute) Burnout of caregiver Chronic venous insufficiency Surgical wound, non healing (Acute) Recurrent pleural effusion (Acute) Dyspnea and respiratory abnormalities Lightheadedness Atrial fibrillation (Chronic) on eliquis; follows with Dr. Gómez & Dr. Abreu HTN (hypertension) (Chronic) Chest pain (Acute) Osteoporosis Hyperlipidemia Generalized anxiety disorder Tachy-joao syndrome Mitral valve prolapse COPD (chronic obstructive pulmonary disease) Pulmonary nodule Adenocarcinoma, lung Medical History Acute pneumothorax Gastritis History of colon polyps Dysphagia GERD (gastroesophageal reflux disease) Amputated toe Leg wound, left Cancer of upper lobe of left lung Hyponatremia Subcutaneous emphysema associated with surgical procedure Scoliosis History of breast cancer dx'd 2019 - right breast - hx lumpectomy + radiation History of migraine IBS (irritable bowel syndrome) SVT (supraventricular tachycardia) Family history of colon cancer Surgical History S/P thoracentesis Status post lobectomy of lung History of cardiac radiofrequency ablation x 2 History of esophagogastroduodenoscopy (EGD) History of colonoscopy S/P cardiac pacemaker procedure 2015 - A.fib - [facility] - last check 02/2021 per pt H/O breast surgery S/P eye surgery macular hole S/P bunionectomy History of appendectomy Family History Mother Breast cancer Colorectal cancer Aunt Breast cancer Colorectal cancer Sister Breast cancer Colorectal cancer Father Myocardial infarction Other Family history of colon cancer No family history of adverse response to anesthesia Denies family history of Ovarian cancer Prostate cancer Social History Smoking Status: Never smoker Tobacco Type: Cigarettes Age Started Using Tobacco: 18; Age Quit Using Tobacco: 37; packs per day: 0.5; Cigarettes Per Day: 20 yr for 1/5 pack per day; Second Hand Exposure: No; Do You Dip or Chew Tobacco: No; Hx Alcohol Use: Yes Alcohol type: wine Alcohol Intake Frequency Comment: social Hx Substance Use: No Preferred Language: Vincentian Communication Ability: Effective Visual Impairment: No Limitations Hearing Ability: Normal Scrap 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 Worker Required: No Beliefs That Will Affect Care: None marital status: / Current Living Situation: Alone current occupational status: retired How many Children do You have: 4 Feels Safe at Home: Yes Childhood Exposure to Second-Hand Smoke: Yes Dental Care, Regularly: Yes Physical Activity Frequency: Daily Seatbelt Use: always Sunscreen Use: Yes Assistive Devices: None Review of Systems Review of Systems: All systems reviewed & are unremarkable except as noted in HPI & below Physical Exam Physical Exam: General: patient resting comfortably, NAD, non-toxic in appearance, AA&O x 4 Skin: warm, dry, intact, no rashes or lesions HEENT: NC/AT, PERRL, EOMI, anicteric sclera, conjunctiva without injection, external ear normal to inspection and nontender, nares patent, moist mucus membranes, dentition intact, no oropharyngeal lesions, neck supple, trachea midline, no LAD, no thyromegaly, no JVD Heart: +S1/S2, Irregular,, no m/r/g Lungs: diminished breath sounds in right lung field to mid lung field, no rhonchi or wheezes Abd: +BS, soft, NT/ND, no masses/organomegaly/ascites Ext: warm, 2+ pulses in UE/LE bilaterally, no clubbing/cyanosis, 1+ pitting edema of bilateral lower extremities Neuro: nonfocal, patient AA&O x 4, speech intact, no facial droop, moving all extremities on command with equal strength 5/5 Results & Data Results & Data Vital Signs (Past 12 Hours) Vital Signs Temp Pulse Resp BP Pulse Ox O2 Del Method O2 Flow Rate 11/20/24 02:00 74 22 121/72 91 Nasal Cannula 6 11/20/24 01:36 84 23 131/86 92 Nasal Cannula 6 11/20/24 01:10 91 Nasal Cannula 5 11/20/24 00:47 93 Nasal Cannula 4 11/20/24 00:36 36.5 C 88 19 120/75 77 L Room Air Laboratory Results Laboratory Results WBC 7.15 K/ul (4.8-10.8) 11/20/24 00:56 RBC 4.13 M/uL (4.20-5.40) L 11/20/24 00:56 Hgb 14.4 g/dl (12.0-16.0) 11/20/24 00:56 Hct 43.9 % (37.0-47.0) 11/20/24 00:56 MCV 106.3 fL (80.0-100.0) H 11/20/24 00:56 MCH 34.9 pg (25.0-34.0) H 11/20/24 00:56 MCHC 32.8 g/dL (32.0-36.0) 11/20/24 00:56 RDW Std Deviation 65.8 fL (36.4-46.3) H 11/20/24 00:56 RDW Coeff of [place] 17.3 % (11.5-14.5) H 11/20/24 00:56 Plt Count 163 K/uL (130-400) 11/20/24 00:56 MPV 9.9 fL (9.4-12.4) 11/20/24 00:56 Immature Gran % (Auto) 0.3 % 11/20/24 00:56 Neut % (Auto) 79.5 % 11/20/24 00:56 Lymph % (Auto) 7.1 % 11/20/24 00:56 [place] % (Auto) 11.2 % 11/20/24 00:56 Eos % (Auto) 1.3 % 11/20/24 00:56 Baso % (Auto) 0.6 % 11/20/24 00:56 Neut # (Auto) 5.69 K/uL (1.40-6.50) 11/20/24 00:56 Lymph # (Auto) 0.51 K/uL (1.20-3.40) L 11/20/24 00:56 [place] # (Auto) 0.80 K/uL (0.11-0.59) H 11/20/24 00:56 Eos # (Auto) 0.09 K/uL (0.00-0.50) 11/20/24 00:56 Baso # (Auto) 0.04 K/uL (0.00-0.20) 11/20/24 00:56 Immature Gran # (Auto) 0.02 K/uL (0.01-0.20) 11/20/24 00:56 PT 12.7 Seconds (9.0-12.0) H 11/20/24 00:56 INR 1.2 (0.9-1.1) H 11/20/24 00:56 Sodium 137 mmol/L (136-145) 11/20/24 03:07 Potassium 3.2 mmol/L (3.5-5.1) L 11/20/24 03:07 Chloride 94 mmol/L (98-107) L 11/20/24 03:07 Carbon Dioxide 33 mmol/L (21-32) H 11/20/24 03:07 Anion Gap 10 (3-11) 11/20/24 03:07 BUN 46 mg/dl (6-23) H 11/20/24 03:07 Creatinine 1.16 mg/dl (0.6-1.2) 11/20/24 03:07 Est Cr Clr Drug Dosing 26.7 ml/min 11/20/24 03:07 eGFR 45.91 11/20/24 03:07 BUN/Creatinine Ratio 39.7 (10-20) H 11/20/24 03:07 Glucose 125 mg/dl (70-99(Fasting)) H 11/20/24 03:07 Calcium 8.8 mg/dl (8.6-10.3) 11/20/24 03:07 Magnesium 2.3 mg/dl (1.7-2.4) 11/20/24 03:07 Total Bilirubin 1.0 mg/dl (0.2-1.0) 11/20/24 00:56 AST 32 U/L (13-39) 11/20/24 00:56 ALT 21 U/L (7-52) 11/20/24 00:56 Alkaline Phosphatase 117 U/L (34-104) H 11/20/24 00:56 Troponin I High Sens 37.9 pg/ml (0-14) H 11/20/24 03:07 B-Natriuretic Peptide 521 pg/ml (0-100) H 11/20/24 00:56 Total Protein 6.4 gm/dl (6.0-8.3) 11/20/24 00:56 Albumin 3.9 gm/dl (3.4-5.0) 11/20/24 00:56 Globulin 2.5 gm/dl (2.5-4.0) 11/20/24 00:56 Albumin/Globulin Ratio 1.6 (0.9-2) 11/20/24 00:56 Lipase 20 U/L (11-82) 11/20/24 00:56 Procalcitonin 0.24 ng/ml (0-0.5) 11/20/24 00:56 Impressions Chest X-Ray 11/20/24 00:47 EXAM: XR chest 1V portable CLINICAL HISTORY: sob TECHNIQUE: Radiograph of chest was acquired. COMPARISON: 11/12/2024 12:20:08 DIRECTOR DANCE FINDINGS: Blunted bilateral costophrenic angles, (right left) with hazy opacities in underlying bilateral lower zones. Reticular opacities in rest of the lung jones, likely age related septal thickening. Implantable cardiac device in situ. The cardiomediastinal silhouette is within normal limits. No acute osseous abnormality. IMPRESSION: 1. Blunted bilateral costophrenic angles, (right left) suggestive of pleural effusion with hazy opacities in underlying bilateral lower zones. (Increased bilteral pleural effusion compared to previous radiograph) 2. Reticular opacities in rest of the lung jones, likely age related septal thickening. Electronically signed by Ander Salas 11-20-2024 02:21 AM PG Care Time/CCT Total # of Minutes Spent Total Time Spent with Patient: Total time spent is greater than 50% in coordination of care (as documented) at patient's floor/unit and/or counseling patient: Coding Level of Care Code 67192 INT INP/OBS CARE 3/75MIN Diagnoses Recurrent pleural effusion J90 Hypoxia R09.02 Atrial fibrillation I48.91 Atrial fibrillation type: unspecified HTN (hypertension) I10 Pulmonary hypertension I27.20 (3) Atrial fibrillation Atrial fibrillation type: unspecified Qualified Code(s): I48.91 - Unspecified atrial fibrillation
[2024-11-20] MEDS ORDERED: ONDANSETRON INJ 2 MG/ML 2 ML VIAL IV PRN (03:37)
[2024-11-20] MEDS ORDERED: POLYETHYLENE (MIRALAX) 17 GM PACK PO PRN (03:37)
[2024-11-20] MEDS ORDERED: DOCUSATE SODIUM 100 MG CAP PO PRN (03:37)
[2024-11-20] MEDS ORDERED: ACETAMINOPHEN 325 MG TAB PO PRN (03:37)
[2024-11-20 04:36] LABS: Anion Gap 10.0 (3-11); Blood Urea Nitrogen 46.0 mg/dl (6-23); Calcium 8.8 mg/dl (8.6-10.3); Carbon Dioxide 33.0 mmol/L (21-32); Chloride 94.0 mmol/L (98-107); Creatinine Clr Calc Pharmacy 26.7 ml/min; Glucose 125.0 mg/dl (70-99(Fasting)); Magnesium 2.3 mg/dl (1.7-2.4); Potassium 3.2 mmol/L (3.5-5.1); Sodium 137.0 mmol/L (136-145)
[2024-11-20 07:19] VITALS: O2SAT 92
--- NOTE | 2024-11-20 09:32 | Hospitalist Progress Note ---
Date of Service November 20, 2024 Assessment & Plan (1) Acute respiratory failure with hypoxia: (2) Recurrent pleural effusion: (3) Adenocarcinoma, lung: (4) Pulmonary hypertension: (5) Atrial fibrillation: (6) Heart failure with preserved ejection fraction: Plan In summary this is an 84-year-old female presenting with acute hypoxic respiratory failure consequential recurrent pleural effusions with questionable heart failure exacerbation. Pulmonology has been consulted by the admitting provider to assess the patient for possible thoracentesis; her last dose of Eliquis was on 11/16 in the morning. #Acute respiratory failure with hypoxia consequential recurrent pleural effusion Presents with new oxygen requirement of approximately 6 L to maintain O2 saturation greater than 90%; she has been adherent with her prescribed loop diuretic in the outpatient setting; suspect this is primarily consequential of structural changes in the setting of prior lobectomy rather than miesha heart failure exacerbation. BNP and troponin elevations are likely consequential of a type II myocardial infarction in the setting of demand ischemia considering her presenting oxygen saturation in the emergency department was 77%. Maintain O2 saturation greater than 90 to 92% Pulmonology consulted for possible thoracentesis #Pulmonary hypertension Previous diagnosis, most recent TTE from 2023 does not reveal any evidence of pulmonary hypertension however this is likely physiologic in the setting of her prior lobectomy; she has been trialed on and off of sildenafil in the outpatient setting; at this time the patient is not taking this medication as it was self discontinued due to adverse side effects #Heart failure with preserved ejection fraction in the setting of persistent atrial fibrillation with pacemaker Most recent TTE available for review is from 2023; it does reveal diastolic dysfunction with very mild concentric left ventricular hypertrophy; given the progression of her symptoms and the adherence to her medication regimen with respect to her heart failure, I do not suspect this is primarily a heart failure exacerbation. Recommend TTE in the outpatient setting Diet: Heart healthy diet DVT ppx: Withheld in the setting of chronic anticoagulation and anticipated procedure Access: Peripheral IV Code Status: Full code Admission and Anticipated Discharge Date Admission Date: November 20, 2024; anticipate discharge within 24 hours Subjective Ms. Romero is a an 84-year-old female whose active medical conditions include pulmonary adenocarcinoma, heart failure with preserved ejection fraction, sick sinus syndrome status post pacemaker placement, atrial fibrillation among other chronic conditions who presented to [facility] on 11/19 due to progressive dyspnea on exertion and objective hypoxia at home. The patient is known to have recurrent pleural effusions requiring thoracenteses in the outpatient setting most recently performed on 11/12/2024 at which time 1 L of straw-colored fluid was aspirated. Beginning on 11/17 the patient began de veloping dyspnea on exertion and lower extremity edema which has progressed over the past several days. She contacted her medical records supervisor to schedule a thoracentesis on 11/20/2024 however her symptoms progressed to a degree that she presented to the emergency department for further evaluation. This morning the patient is overall feeling well though still requiring supplemental oxygen to maintain her O2 saturation. She denies any pleuritic chest pain, progressive shortness of breath from her initial admission. She is hopeful for thoracentesis to be performed today such that she may discharge if there are no complications as she has company arriving for the weekend. Review of Systems Review of Systems: Constitutional: denies fevers, chills, malaise, fatigue Cardiovascular: Endorses persistent but unchanged peripheral edema; denies angina, palpitations, syncope, orthopnea, platypnea Pulmonary: Endorses dyspnea on exertion; denies cough, pleuritic chest pain Gastrointestinal: denies nausea, dyspepsia, abdominal distension, constipation, diarrhea Neurologic: denies focal weakness, paresthesias or numbness Musculoskeletal: denies arthralgias, progressive weakness, recent falls Integumentary: denies new or developing rashes or lesions Physical Exam Physical Exam: General: Elderly female in no acute distress Vital Signs: Reviewed; still requiring 6 L by nasal cannula to maintain O2 sat uration greater than 92% HEENT: Normocephalic, atraumatic; pupils equally reactive to light, extraocular motions intact; moist mucous membranes Neck: No palpable lymphadenopathy Cardiovascular: Regular rate and rhythm with no murmurs, rubs, or gallops; S1 and S2 normal; bilateral radial and posterior tibial pulses 2+; 1+ bilateral lower extremity edema distal to mid leg, slightly more notable of the left lower extremity than right Pulmonary: Symmetric chest wall excursion with no increased respiratory effort; bilateral posterior basilar segments have soft crackles, left posterior apical lobe has some faint crackles at end-stage inspiration Gastrointestinal: Soft, nondistended Neurologic: CN II-XII grossly intact; no discernible focal weakness nor paresthesias Results & Data Results & Data Vital Signs (Past 12 Hours) Vital Signs Temp Pulse Pulse Resp BP BP Pulse Ox 11/20/24 07:54 36.6 C 67 112/71 92 11/20/24 07:18 63 20 129/72 92 11/20/24 07:00 72 11/20/24 06:33 60 18 94 11/20/24 06:30 113/71 11/20/24 06:00 11/20/24 06:00 36.5 C 67 18 104/86 92 11/20/24 04:57 65 18 11/20/24 04:42 62 16 93 11/20/24 04:39 68 30 H 92 11/20/24 04:00 67 20 91 11/20/24 03:43 90 11/20/24 03:33 61 27 H 92 11/20/24 03:25 68 11/20/24 02:33 68 21 91 11/20/24 02:30 68 21 120/71 91 11/20/24 02:15 75 29 H 90 11/20/24 02:00 74 22 121/72 91 11/20/24 01:36 84 23 131/86 92 11/20/24 01:10 91 11/20/24 00:47 93 11/20/24 00:36 36.5 C 88 19 120/75 77 L O2 Del Method O2 Flow Rate 11/20/24 07:54 Nasal Cannula 6 11/20/24 07:18 Nasal Cannula 6 11/20/24 07:00 11/20/24 06:33 Nasal Cannula 6 11/20/24 06:30 11/20/24 06:00 Nasal Cannula 6 11/20/24 06:00 Nasal Cannula 6 11/20/24 04:57 11/20/24 04:42 6 11/20/24 04:39 6 11/20/24 04:00 6 11/20/24 03:43 Nasal Cannula 6 11/20/24 03:33 11/20/24 03:25 11/20/24 02:33 11/20/24 02:30 Nasal Cannula 6 11/20/24 02:15 11/20/24 02:00 Nasal Cannula 6 11/20/24 01:36 Nasal Cannula 6 11/20/24 01:10 Nasal Cannula 5 11/20/24 00:47 Nasal Cannula 4 11/20/24 00:36 Room Air Laboratory Results Laboratory Results WBC 7.15 K/ul (4.8-10.8) 11/20/24 00:56 RBC 4.13 M/uL (4.20-5.40) L 11/20/24 00:56 Hgb 14.4 g/dl (12.0-16.0) 11/20/24 00:56 Hct 43.9 % (37.0-47.0) 11/20/24 00:56 MCV 106.3 fL (80.0-100.0) H 11/20/24 00:56 MCH 34.9 pg (25.0-34.0) H 11/20/24 00:56 MCHC 32.8 g/dL (32.0-36.0) 11/20/24 00:56 RDW Std Deviation 65.8 fL (36.4-46.3) H 11/20/24 00:56 RDW Coeff of [place] 17.3 % (11.5-14.5) H 11/20/24 00:56 Plt Count 163 K/uL (130-400) 11/20/24 00:56 MPV 9.9 fL (9.4-12.4) 11/20/24 00:56 Immature Gran % (Auto) 0.3 % 11/20/24 00:56 Neut % (Auto) 79.5 % 11/20/24 00:56 Lymph % (Auto) 7.1 % 11/20/24 00:56 [place] % (Auto) 11.2 % 11/20/24 00:56 Eos % (Auto) 1.3 % 11/20/24 00:56 Baso % (Auto) 0.6 % 11/20/24 00:56 Neut # (Auto) 5.69 K/uL (1.40-6.50) 11/20/24 00:56 Lymph # (Auto) 0.51 K/uL (1.20-3.40) L 11/20/24 00:56 [place] # (Auto) 0.80 K/uL (0.11-0.59) H 11/20/24 00:56 Eos # (Auto) 0.09 K/uL (0.00-0.50) 11/20/24 00:56 Baso # (Auto) 0.04 K/uL (0.00-0.20) 11/20/24 00:56 Immature Gran # (Auto) 0.02 K/uL (0.01-0.20) 11/20/24 00:56 PT 12.7 Seconds (9.0-12.0) H 11/20/24 00:56 INR 1.2 (0.9-1.1) H 11/20/24 00:56 Sodium 137 mmol/L (136-145) 11/20/24 03:07 Potassium 3.2 mmol/L (3.5-5.1) L 11/20/24 03:07 Chloride 94 mmol/L (98-107) L 11/20/24 03:07 Carbon Dioxide 33 mmol/L (21-32) H 11/20/24 03:07 Anion Gap 10 (3-11) 11/20/24 03:07 BUN 46 mg/dl (6-23) H 11/20/24 03:07 Creatinine 1.16 mg/dl (0.6-1.2) 11/20/24 03:07 Est Cr Clr Drug Dosing 26.7 ml/min 11/20/24 03:07 eGFR 45.91 11/20/24 03:07 BUN/Creatinine Ratio 39.7 (10-20) H 11/20/24 03:07 Glucose 125 mg/dl (70-99(Fasting)) H 11/20/24 03:07 Calcium 8.8 mg/dl (8.6-10.3) 11/20/24 03:07 Magnesium 2.3 mg/dl (1.7-2.4) 11/20/24 03:07 Total Bilirubin 1.0 mg/dl (0.2-1.0) 11/20/24 00:56 AST 32 U/L (13-39) 11/20/24 00:56 ALT 21 U/L (7-52) 11/20/24 00:56 Alkaline Phosphatase 117 U/L (34-104) H 11/20/24 00:56 Troponin I High Sens 37.9 pg/ml (0-14) H 11/20/24 03:07 B-Natriuretic Peptide 521 pg/ml (0-100) H 11/20/24 00:56 Total Protein 6.4 gm/dl (6.0-8.3) 11/20/24 00:56 Albumin 3.9 gm/dl (3.4-5.0) 11/20/24 00:56 Globulin 2.5 gm/dl (2.5-4.0) 11/20/24 00:56 Albumin/Globulin Ratio 1.6 (0.9-2) 11/20/24 00:56 Lipase 20 U/L (11-82) 11/20/24 00:56 Procalcitonin 0.24 ng/ml (0-0.5) 11/20/24 00:56 Impressions Chest X-Ray 11/20/24 00:47 EXAM: XR chest 1V portable CLINICAL HISTORY: sob TECHNIQUE: Radiograph of chest was acquired. 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 Reticular opacities in rest of the lung jones, likely age related septal thickening. Implantable cardiac device in situ. The cardiomediastinal silhouette is within normal limits. No acute osseous abnormality. IMPRESSION: 1. Blunted bilateral costophrenic angles, (right left) suggestive of pleural effusion with hazy opacities in underlying bilateral lower zones. (Increased bilteral pleural effusion compared to previous radiograph) 2. Reticular opacities in rest of the lung jones, likely age related septal thickening. Electronically signed by Ander Salas 11-20-2024 02:21 AM PG Care Time/CCT Total # of Minutes Spent Total Time Spent with Patient: Total time spent is greater than 50% in coordination of care (as documented) at patient's floor/unit and/or counseling patient: Coding Level of Care Code 04873 SUB INP/OBS CARE 3/50MIN Diagnoses Acute respiratory failure with hypoxia J96.01 Recurrent pleural effusion J90 Adenocarcinoma of lung, unspecified laterality C34.90 Laterality: unspecified laterality Pulmonary hypertension I27.20 Atrial fibrillation I48.91 Atrial fibrillation type: unspecified Chronic heart failure with preserved ejection fraction (HFpEF) I50.32 Heart failure chronicity: chronic (3) Adenocarcinoma, lung Laterality: unspecified laterality Qualified Code(s): C34.90 - Malignant neoplasm of unspecified part of unspecified bronchus or lung (5) Atrial fibrillation Atrial fibrillation type: unspecified Qualified Code(s): I48.91 - Unspecified atrial fibrillation (6) Heart failure with preserved ejection fraction Heart failure chronicity: chronic Qualified Code(s): I50.32 - Chronic diastolic (congestive) heart failure
[2024-11-20 09:42] LABS: Appearance Urine Clear (Clear); Glucose Urine UA 2+ (Negative)
[2024-11-20] MEDS: BUMETANIDE 2 MG in SYRINGE 0 ML IV SCH (10:55)
--- NOTE | 2024-11-20 11:33 | Pulmonary Consultation ---
Date of Consultation November 20, 2024 Assessment & Plan (1) Acute respiratory failure with hypoxia: (2) Heart failure with preserved ejection fraction: Heart failure chronicity: chronic Qualified Code(s): I50.32 - Chronic diastolic (congestive) heart failure (3) Pulmonary hypertension: (4) Recurrent pleural effusion: (5) Atrial fibrillation: Atrial fibrillation type: unspecified Qualified Code(s): I48.91 - Unspecified atrial fibrillation (6) Adenocarcinoma, lung: Laterality: unspecified laterality Qualified Code(s): C34.90 - Malignant neoplasm of unspecified part of unspecified bronchus or lung Plan 2D echo 06/21/2023: 60%, severe LA and RA dilation, mild elevation of pulmonary artery systolic pressure -- Acute hypoxic respiratory failure with bilateral pleural effusion Likely secondary to HFpEF with history of A-fib History of multiple right-sided thoracentesis in the past, last right-sided thoracentesis was 09/19/2024, 59% lymphocytes Cytologies have been negative BNP 521 --History of adenocarcinoma of the lung Left upper lobe s/p resection -- A-fib On Eliquis Last dose was 11/17/2024 in the morning Plan: Recommend strict ins and outs measurements Diuretics to keep the patient negative balance at least 1 L a day Last dose of Eliquis was 11/17/2024 which is more than 48 hours ago. For thoracentesis later today Risk and benefit of the procedure explained to the patient in depth. Patient understands and wants to go ahead with the procedures Consent signed, witnessed and put in the chart I spent more than 75 minutes looking in the chart, images, discussing the plan of care with the patient, RN as well as primary team Please note the above document was generated using voice recognition software. It may contain grammatical, syntax or spelling errors.Any formal questions or concerns about the content, text or information contained within the body of this dictation should be directly addressed to the provider for clarification. History of Present Illness Attending Physician: Hamilton Beasley DO History of Present Illness 84-year-old female admitted to the hospital for shortness of breath Past medical history: A-fib on Eliquis, hypertension, dyslipidemia, pulmonary hypertension Pulmonary consulted for pleural effusion At the time of examination patient was on 6 L nasal cannula, she was saturating 90-92% Was in mild respiratory distress. Was able to finish all the sentence without any issues Has been complaining of worsening shortness of breath since at least Sunday. Has had multiple thoracentesis in the past. She follows up with cardiology in [place] who has started the patient on sildenafil as of April for pulmonary hypertension Denies any nausea or vomiting No abdominal pain No fever or chills No hemoptysis Social history: Approximately 16-pacq-xavt smoking history, quit at the age of 38. Allergies Allergy/AdvReac Type Severity Reaction Status Date / Time amoxicillin AdvReac Intermediate C DiFF Verified 10/23/24 13:36 Home Medications Medication Instructions Recorded Confirmed Type multivitamin 1 tab PO DAILY 08/01/22 11/20/24 History rosuvastatin 20 mg tablet 20 mg PO QPM #90 tabs 08/06/24 11/20/24 Rx apixaban 5 mg tablet (Eliquis) 5 mg PO BID #60 tabs 11/04/24 11/20/24 Rx bumetanide 1 mg tablet 3 mg PO AMPM 11/20/24 11/20/24 History dapagliflozin propanediol 10 mg 10 mg PO QAM 11/20/24 11/20/24 History tablet (Farxiga) diltiazem HCl 120 mg 240 mg PO QPM 11/20/24 11/20/24 History capsule,extended release 24 hr Patient History Medical History (Updated 11/20/24 @ 09:26 by Hamilton Beasley DO) Acute pneumothorax Gastritis History of colon polyps Dysphagia GERD (gastroesophageal reflux disease) Amputated toe Leg wound, left Cancer of upper lobe of left lung Hyponatremia Subcutaneous emphysema associated with surgical procedure Scoliosis History of breast cancer dx'd 2019 - right breast - hx lumpectomy + radiation History of migraine IBS (irritable bowel syndrome) SVT (supraventricular tachycardia) Family history of colon cancer Surgical History S/P thoracentesis Status post lobectomy of lung History of cardiac radiofrequency ablation x 2 History of esophagogastroduodenoscopy (EGD) History of colonoscopy S/P cardiac pacemaker procedure 2014 - A.fib - [facility] - last check 02/2021 per pt H/O breast surgery S/P eye surgery macular hole S/P bunionectomy History of appendectomy Family History Mother Breast cancer Colorectal cancer Aunt Breast cancer Colorectal cancer Sister Breast cancer Colorectal cancer Father Myocardial infarction Other Family history of colon cancer No family history of adverse response to anesthesia Denies family history of Ovarian cancer Prostate cancer Social History Smoking Status: Never smoker Tobacco Type: Cigarettes Age Started Using Tobacco: 18; Age Quit Using Tobacco: 37; packs per day: 0.5; Cigarettes Per Day: 20 yr for 1/5 pack per day; Second Hand Exposure: No; Do You Dip or Chew Tobacco: No; Hx Alcohol Use: No Hx Substance Use: No Preferred Language: Niuean Communication Ability: Effective Visual Impairment: No Limitations Hearing Ability: Normal 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 Required: No Beliefs That Will Affect Care: None marital status: / Current Living Situation: Alone current occupational status: retired How many Children do You have: 4 Feels Safe at Home: Yes Childhood Exposure to Second-Hand Smoke: Yes Dental Care, Regularly: Yes Physical Activity Frequency: Daily Seatbelt Use: always Sunscreen Use: Yes Assistive Devices: None Review of Systems Review of Systems: All systems reviewed & are unremarkable except as noted in HPI & below Physical Exam Physical Exam: Constitutional: No acute distress HEENT: EOMI, PERRLA Respiratory system: Decreased air entry bilaterally, more decreased on the right, no wheeze, rhonchi, positive crackles bilaterally CVS: S1-S2 positive, no murmurs or gallops, positive S3 Abdomen: Soft, nontender, nondistended, positive bowel sounds x4 Extremities: +2 pulses bilaterally radialis/ dorsalis pedis, no cyanosis, +2 pitting edema bilateral lower extremity Neuro: Awake alert oriented x3 Psych: Normal mood and affect G/U: No Jones Results & Data Results & Data Vital Signs (Past 12 Hours) Vital Signs Temp Pulse Pulse Resp BP BP Pulse Ox 11/20/24 07:54 36.6 C 67 112/71 92 11/20/24 07:18 63 20 129/72 92 11/20/24 07:00 72 11/20/24 06:33 60 18 94 11/20/24 06:30 113/71 11/20/24 06:00 11/20/24 06:00 36.5 C 67 18 104/86 92 07/24/25 04:57 65 18 11/20/24 04:42 62 16 93 11/20/24 04:39 68 30 H 92 11/20/24 04:00 67 20 91 11/20/24 03:43 90 11/20/24 03:33 61 27 H 92 11/20/24 03:25 68 11/20/24 02:33 68 21 91 11/20/24 02:30 68 21 120/71 91 11/20/24 02:15 75 29 H 90 11/20/24 02:00 74 22 121/72 91 11/20/24 01:36 84 23 131/86 92 11/20/24 01:10 91 11/20/24 00:47 93 11/20/24 00:36 36.5 C 88 19 120/75 77 L O2 Del Method O2 Flow Rate 11/20/24 07:54 Nasal Cannula 6 11/20/24 07:18 Nasal Cannula 6 11/20/24 07:00 11/20/24 06:33 Nasal Cannula 6 11/20/24 06:30 11/20/24 06:00 Nasal Cannula 6 11/20/24 06:00 Nasal Cannula 6 11/20/24 04:57 11/20/24 04:42 6 11/20/24 04:39 6 11/20/24 04:00 6 11/20/24 03:43 Nasal Cannula 6 11/20/24 03:33 11/20/24 03:25 11/20/24 02:33 11/20/24 02:30 Nasal Cannula 6 11/20/24 02:15 11/20/24 02:00 Nasal Cannula 6 11/20/24 01:36 Nasal Cannula 6 11/20/24 01:10 Nasal Cannula 5 11/20/24 00:47 Nasal Cannula 4 11/20/24 00:36 Room Air PG Care Time/CCT Total # of Minutes Spent Total Time Spent with Patient: Total time spent is greater than 50% in coordination of care (as documented) at patient's floor/unit and/or counseling patient: Coding Level of Care Code 02705 INT INP/OBS CARE 375MIN Diagnoses Acute respiratory failure with hypoxia J96.01 Chronic heart failure with preserved ejection fraction (HFpEF) I50.32 Heart failure chronicity: chronic Pulmonary hypertension I27.20 Recurrent pleural effusion J90 Atrial fibrillation I48.91 Atrial fibrillation type: unspecified Adenocarcinoma of lung, unspecified laterality C34.90 Laterality: unspecified laterality
[2024-11-20 11:54] VITALS: BP 120/70; PULSE 87; RESP 22; TEMP 97.7
--- NOTE | 2024-11-20 13:28 | Procedure Note ---
Procedure Note Date of Service November 20, 2024 Bedside Ultrasound: Lung: Right:-Moderate right-sided pleural effusion, atelectatic right lower lobe, B- lines posteriorly Left:-Minimal left-sided pleural effusion with fibrin stranding. A-line's anteriorly and posteriorly Please note the above document was generated using voice recognition software. It may contain grammatical, syntax or spelling errors.Any formal questions or concerns about the content, text or information contained within the body of this dictation should be directly addressed to the provider for clarification. [facility] [place] Procedure Codes (Charges) Pulmonary/Thoracic Procedure 1: Pulmonary and Thoracic: 27010 US, Chest, real time with imaging documentation Coding CPT Codes Pulmonary/Thoracic - Pulmonary and Thoracic: 19594 US, Chest, real time with imaging documentation ([id number]) Additional Codes Date of Service (PG.SURGERY)
--- NOTE | 2024-11-20 13:29 | Procedure Note ---
Procedure Note Date of Service November 20, 2024 Procedure: Diagnostic therapeutic ultrasound-guided catheter thoracentesis Manager Publishing: Dr. Gurdeep Steward Indication: Right-sided pleural effusion Consent: Signed by patient and verified with timeout prior to procedure Anesthesia: 1% lidocaine without epinephrine local. Procedure: Consent was verified and timeout performed. Appropriate imaging studies were reviewed prior to the procedure. Patient was placed in a seated position and limited thoracic ultrasound was performed of the right chest. See separate imaging. Appropriate site above the diaphragm for thoracentesis was selected. The skin was prepped and draped in normal sterile fashion. Lidocaine was used for local analgesia. Fluid was aspirated via the finder needle. A small skin dipti was made with the scalpel and the catheter over the needle apparatus was advanced over the rib into the pleural space. Using the syringe one-way valve system, a total of 1250 mL's of serous fluid was removed. The catheter was removed and observed to be intact. A sterile dressing was applied. Post procedure chest x-ray was ordered. Fluid was sent for labs, culture and cytology. Complications: None Blood loss: None [facility] Procedure Codes (Charges) Pulmonary/Thoracic Procedure 1: Pulmonary and Thoracic: 30467 Thoracentesis w imaging Coding CPT Codes Pulmonary/Thoracic - Pulmonary and Thoracic: 62009 Thoracentesis w imaging ([id number]) Additional Codes Date of Service (PG.SURGERY)
--- NOTE | 2024-11-20 13:38 | XRay Report ---
XR chest 1V portable CLINICAL HISTORY: post thorocentisis COMPARISON STUDY: 11/20/2024 FINDINGS: Stable pacemaker. Stable cardiomegaly without pulmonary vascular congestion. There are smal l bilateral pleural effusions, improved on the right and stable on the left. No pneumothorax. IMPRESSION: No pneumothorax. ACT 112: Negative or not required by law. Electronically signed by: Chapincito Lester M.D. 11/20/2024 1:35 PM
--- NOTE | 2024-11-20 14:04 | Discharge Summary ---
Discharge Summary Date of Service November 20, 2024 Principal Dx & Hospital Course #1 = Principal Diagnosis (1) Acute respiratory failure with hypoxia: (2) Recurrent pleural effusion: (3) Adenocarcinoma, lung: (4) Pulmonary hypertension: (5) Atrial fibrillation: (6) Heart failure with preserved ejection fraction: Plan In summary this is an 84-year-old female who presented with acute hypoxic respiratory failure consequential recurrent pleural effusions with questionable heart failure exacerbation. Pulmonology was been consulted by the admitting provider to assess the patient for possible thoracentesis which was performed w [facility] on 11/20/2024 withdrawing approximately 1250 mL of straw colored fluid; laboratory assessment of aspirate is pending at this time. The patient feels and appears much improved after the procedure. #Acute respiratory failure with hypoxia consequential recurrent pleural effusion Uncomplicated thoracentesis performed at bedside by Pulmonology. #Pulmonary hypertension Previous diagnosis, most recent TTE from 2023 does not reveal any evidence of pulmonary hypertension however this is likely physiologic in the setting of her prior lobectomy; she has been trialed on and off of sildenafil in the outpatient setting; at this time the patient is not taking this medication as it was self discontinued due to adverse side effects #Heart failure with preserved ejection fraction in the setting of persistent atrial fibrillation with pacemaker Most recent TTE available for review is from 2023; it does reveal diastolic dysfunction with very mild concentric left ventricular hypertrophy; given the progression of her symptoms and the adherence to her medication regimen with respect to her heart failure, I do not suspect this is primarily a heart failure exacerbation. TTE ordered to be performed in the outpatient setting Admission HPI Per Admitting Provider Nanci Romero Is an 84-year-old female with history of atrial fibrillation on apixaban anticoagulation (last dose on 11/18/2019 5 AM), hypertension, hyperlipidemia, COPD and lung adenocarcinoma status post left upper lobe resection in 2022 presenting with shortness of breath and recurrence of right sided pleural effusion. Patient with recurrent right-sided pleural effusion. Has had multiple thoracenteses in the past. Her last thoracentesis was last week on 11/12/2024 during which they removed approximately 1 L of straw-colored fluid. On 11/17/2024 patient began to develop some mild shortness of breath which has progressed. She called pulmonary and scheduled a thoracentesis to be performed on 11/20/2024. She presents tonight with worsening shortness of breath. Also reports progressive bilateral lower extremity edema over the last few days as well as weight gain. She typically weighs 98 to 100 pounds and weighs 104 pounds today. Patient was taking sildenafil for diagnosis of pulmonary hypertension. She reports that this caused her some GI upset therefore she stopped it on her own. She did resume it in late May and reports since doing this she has had more rapidly accumulating pleural fluid. She then self discontinued this medication again with her last dose being yesterday. In the ER she is afebrile, hemodynamically stable, hypoxic in the ER to 77%. Now on 6 L nasal cannula saturating 90% ER course: Potassium 40 mEq p.o. Bumex 2 mg IV Discharge Exam General: Elderly female in no acute distress Vital Signs: Reviewed; still requiring 6 L by nasal cannula to maintain O2 saturation greater than 92% HEENT: Normocephalic, atraumatic; pupils equally reactive to light, extraocular motions intact; moist mucous membranes Neck: No palpable lymphadenopathy Cardiovascular: Regular rate and rhythm with no murmurs, rubs, or gallops; S1 and S2 normal; bilateral radial and posterior tibial pulses 2+; 1+ bilateral lower extremity edema distal to mid leg, slightly more notable of the left lower extremity than right Pulmonary: Symmetric chest wall excursion with no increased respiratory effort; CTAB except for left posterior apical lobe end expiratory crackles Gastrointestinal: Soft, nondistended Neurologic: CN II-XII grossly intact; no discernible focal weakness nor p aresthesias Discharge Plan Discharge Items Patient Disposition: Home - Self-Care Reason For Visit: SHORTNESS OF BREATH,EDEMA Discharge Diagnosis: Recurrent transudative pleural effusion Condition on Discharge: Good Activity: Per Instructions section Lifting: Gradually increase as tolerated Bathing: No limitations Sexual Activity: When tolerated Exercise/Sports: As tolerated Driving/Machine Use: No limitations Weightbearing: Full weightbearing Non-emergency contact: Primary Care Provider Call non-emergency contact if: you have any medication questions and your symptoms worsen Follow-up/Referrals: Vilma Lopez MD [Primary Care Provider] - Diet: Low Fat and Low Sodium (2gm) Fluids: 1800ml (7 cups) Ambulatory Orders: CA echo transthoracic limited (Routine) Timeframe: 2 Months Location: Determined by Patient Ordered By: Hamilton Beasley Addtl Attending Provider Instructions: Continue following your prescribed medication regimen, especially with respect to your Bumex. Please contact your PCP within the next 24 to 48 hours for followup from this hospitalization. Pending Studies at Discharge: Yes Studies:: Cytology studies from thoracentesis on 11/20/2024 Stand-Alone Forms: [facility] Medications and DC Order Prescriptions: Continued rosuvastatin 20 mg tablet 20 mg PO QPM Qty: 90 3RF Hold Instructions: trying pravastatin Eliquis 5 mg tablet 5 mg PO BID Qty: 60 5RF multivitamin Tablet 1 tab PO DAILY bumetanide 1 mg tablet 3 mg PO AMPM diltiazem HCl 120 mg capsule,extended release 24hr 240 mg PO QPM dapagliflozin propanediol [Farxiga] 10 mg tablet 10 mg PO QAM Discharge Orders: Discharge Order (Routine); Ordered 11/20/24 Ordered By: Hamilton Beasley Admission Data Admit Date/Time: 11/20/24 02:25 Attending Provider: Hamilton Beasley Admit Provider: Kimberly Laguerre Primary Care Provider: Vilma Lopez Other Providers: Gurdeep Steward; Kimberly Laguerre Hospital Stay Data Consultations 11/20/24 01:45 ED Decision to Admit Stat 11/20/24 02:25 Consult Pulmonology Routine Diagnostic Imagining Performed 11/20/24 11:26 US point of care ultrasound Urgent Pending Results Patient Have Any Pending Studies at Discharge: Yes Discharge Instructions Given to Patient (Per Discharging Provider) Continue following your prescribed medication regimen, especially with respect to your Bumex. Please contact your PCP within the next 24 to 48 hours for followup from this hospitalization. Total Time Total Time Spent Total Time Spent (In Minutes): 50 Coding Level of Care Code INP/OBS EV SAME DAY LV 3,85MIN Diagnoses Acute respiratory failure with hypoxia J96.01 Recurrent pleural effusion J90 Adenocarcinoma of lung, unspecified laterality C34.90 Laterality: unspecified laterality Pulmonary hypertension I27.20 Atrial fibrillation I48.91 Atrial fibrillation type: unspecified Chronic heart failure with preserved ejection fraction (HFpEF) I50.32 Heart failure chronicity: chronic
[2024-11-20 14:18] LABS: Appearance Pleural Fluid Clear; Color Pleural Fluid Yellow; RBC Pleural Fluid Auto 2000 /uL; Source Pleural Fluid Right Lung; WBC Pleural Fluid Auto 290 /uL
[2024-11-20 15:03] LABS: Lymphocytes, Fluid 30 %; Mono,Macrophage,Mesothelial 42 %; Neutrophils, Fluid 22 %; Other Cells Pleural Cells 6 %
[2024-11-20] MEDS ORDERED: ROSUVASTATIN CALCIUM 20 MG TAB PO SCH (21:00)
--- NOTE | 2024-11-22 05:48 | Electrocardiogram Report ---
Test Reason : Blood Pressure : */* mmHG Vent. Rate : 76 BPM Atrial Rate : * BPM P-R Int : * ms QRS Dur : 98 ms QT Int : 398 ms P-R-T Axes : * 127 -14 degrees QTcB Int : 447 ms Atrial fibrillation with occasional ventricular-paced complexes Right axis deviation Incomplete right bundle branch block Right ventricular hypertrophy with repolarization abnormality Septal infarct , age undetermined Abnormal ECG When compared with ECG of 16-Apr-2023 12:57, Electronic ventricular pacemaker is now evident Confirmed by Gage Escobar ([id number]) on 11/22/2024 5:48:22 AM Referred By: REFERRED SELF Confirmed By: Gage Escobar
== END 2024-11-20 16:21 | disposition home or self-care (01) ==
LOC: EDINP 00:34 → ED 00:34 → SUATTDRO 02:25 → 2S 03:37

== ENCOUNTER 2024-11-22 15:37 | Inpatient (IN) ==
--- NOTE | 2024-11-22 15:50 | Emergency Department Note ---
Impression & Plan Acute hypoxemic respiratory failure, Acute exacerbation of CHF (congestive heart failure), Pleural effusion, Pulmonary edema, Chronic venous insufficiency, Pulmonary hypertension, Acute hypokalemia ED Provider Note NAME: PRO BOB AGE: 84 SEX: F : 1940 ARRIVES VIA: Walk-In INFORMANT: Patient, family ED PROVIDER(S): Loco Rodriguez DO CHIEF COMPLAINT: SOB HPI: This is a 84-year-old female with the PMHx of adenocarcinoma of the lung s/p lobectomy, CHF, paroxysmal atrial fibrillation on chronic anticoagulation with apixaban, COPD and chronic venous insufficiency presenting to [facility] for further evaluation of SOB. Patient is accompanied by family who provide additional history. patient reports that she had a thoracentesis on 11/20 with pulmonology. Patient states since that time she has worsening shortness of breath. Her home diuretic regimen was recently increased. She reports that her weight gain has been unchanged. She reports chronic lower extremity swelling that is worse than usual and has not improved. Patient states that she continues to have severe shortness of breath but no associated symptoms. Worsens with any exertion as well as significant orthopnea. They deny fever or chills. No cough or congestion. Denies chest pain or palpitations. They deny abdominal pain, nausea and vomiting. No urinary complaints. No recent changes in bowel movements. Patient's outpatient diuretic regiment was recently increased by pulmonology. Patient offers no other complaints, today. ADDITIONAL HISTORY OBTAINED: Per HPI Chronic Medical/Social Conditions Affecting Care: Per HPI PAST MEDICAL HISTORY: See Below PAST SURGICAL HISTORY: See Below FAMILY HISTORY: See Below SOCIAL HISTORY: See Below HOME MEDICATIONS: See Below ALLERGIES: See Below VITALS: See Below PHYSICAL EXAMINATION: GENERAL: Sitting up in bed, alert, well appearing, well nourished, no distress, non-toxic EYE EXAM: normal conjunctiva. OROPHARYNX: no exudate, no erythema, lips, buccal mucosa, and tongue normal and mucous membranes are moist NECK: supple, no nuchal rigidity, no adenopathy, non-tender LUNGS: Rales auscultated bilaterally but severely decreased breath sounds on the right. Normal chest wall mechanics HEART: no murmurs, regular rate, irregular rhythm ABDOMEN: abdomen soft, non-tender, normo-active bowel sounds, no masses, no rebound or guarding. BACK: Back is symmetrical on inspection and there is no deformity, no midline tenderness, no CVA tenderness. SKIN: no rashes and no bruising UPPER EXTREMITIES: upper extremities are grossly normal. LOWER EXTREMITIES: 3+ pitting edema bilaterally below the knees. NEURO EXAM: Normal sensorium, GCS 15, normal speech, no gross weakness of arms, no gross weakness of legs. MEDICAL DECISION MAKING: Differential diagnoses includes but not limited to ACS, unstable angina, dysrhythmia, PNA, hypervolemia/pulmonary edema, CHF exacerbation, COPD exacerbation, PE, pneumothorax, pericardial effusion, cardiac tamponade, anxiety/psychogenic, viral URI In summary, this is a 84 year old female who presented with SOB. Differential as above. Nursing notes and pertinent past medical records reviewed. Vital signs reviewed and the patient is hypoxic but otherwise afebrile hemodynamically stable. Patient had low-flow nasal cannula applied at 4 L. This had improvement in her oxygenation status. She is mildly tachypneic. She is otherwise afebrile hemodynamically stable. History and presentation revealed []. I reviewed the records from this past week. Patient was seen by pulmonology Dr. Steward. Noted to have recurrent R pleural effusion requiring thoracentesis. Patient did have a thoracentesis this week. Patient has had cytology of her pleural fluid multiple times that has been negative. Believe this is likely in the setting of her prior lobectomy in the setting of adenocarcinoma as well as heart failure. She is anticoagulated. She did hold her Eliquis for 2 days prior to the procedure. Patient has since resumed anticoagulation. Patient reports that she did well for approximately 24 hours and then had worsening shortness of breath. She notes that she has had weight gain. She continues with lower extremity edema. She does not have oxygen available to her at home. She is on high doses of bumex as outpatient. Physical examination revealed []. As a result of my initial evaluation, []. I do feel the patient symptoms are likely related to her pleural effusion as well as CHF exacerbation based on physical examination. The patient could have a pulmonary embolism but she is not tachycardic and really has better explanations for her acute hypoxic respiratory failure. While she did miss 2 doses of her anticoagulation for her thoracentesis, I still believe this is less likely explanation of her acute hypoxic respiratory failure rather than CHF exacerbation and pleural effusion. Diagnostics interpreted by me include EKG and cardiac monitoring as listed below: -Cardiac Monitoring: An order was placed for continuous cardiac monitoring. The monitor shows a rate of 70-100 with irregular rhythm. -ECG: EKG independently interpreted by me reveals rate controlled atrial flutter at [address] segment changes or STEMI. Intervals otherwise within normal limits. Poor baseline on this EKG. Patient completed laboratory studies and imaging. chest x-ray independently turbid by me reveals interstitial edema likely from pulmonary edema. Does have a moderate size right sided pleural effusion. This is worse as compared to prior but Not as severe as it has been in the past. Results independently interpreted by me are no leukocytosis or anemia. Patient's blood gas is unremarkable. Does have mild hypokalemia, will add magnesium level and replenish potassium as she will undergo IV diuresis. She does have slightly worsened kidney function from baseline. Total bilirubin is minimally elevated at 1.1. Troponin mildly elevated at 30.8. BNP has improved from prior. She was originally in the 500s. She is 378 today. The patient was managed with IV diuresis. I discussed with the patient given her likely CHF exacerbation and recurrent pleural effusion now with oxygen requirement, she will require admission. She is agreeable to this. Will begin IV diuresis with Bumex. Patient's outpatient medications reviewed showing recent increase in Bumex dosing. This was likely at her pulmonology appointment early last week. Patient will be given 3 mg IVP Bumex. Plan for admission given acute hypoxemic respiratory failure. Ultimately, the decision was made to admit the patient for acute hypoxemic respiratory failure secondary to pulmonary edema, CHF exacerbation and pleural effusion. It was recommended to admit this patient at 1712. I discussed the case with the hospitalist service via telephone and they are agreeable to admit the patient to their services at [address] Aguirre. Based on the above, including the patient's age, coexisting illnesses, labs, imaging, and exam findings the decision to treat as an inpatient. I discussed the patient with the hospitalist team who recommended admission to their services. They received the medications, treatments, interventions indicated above and their condition remained guarded. I discussed my findings with the patient and their family and they understand and agree with the treatment plan. All patient / family questions were answered to their satisfaction. Consults/Care Managements Discussions: Per MDM ER treatment provided: See above Procedures:none Critical Care: None The chart was completed utilizing [employer] Speech voice recognition software. Grammatical errors, random word insertions, pronoun errors, and incomplete sentences are an occasional consequence of this system due to software limitations, ambient noise, and hardware issues. Any formal questions or concerns about the content, text, or information contained within the body of this dictation should be directly addressed to the physician for clarification. Past Med/Surg History Problem List (Updated 11/23/24 @ 03:16 by Loco Rodriguez DO) Acute hypokalemia (Acute) Pulmonary edema (Acute) Pleural effusion (Acute) Acute exacerbation of CHF (congestive heart failure) (Acute) Acute hypoxemic respiratory failure (Acute) Heart failure with preserved ejection fraction Pulmonary hypertension (Acute) Chronic venous insufficiency (Acute) Atrial fibrillation (Chronic) on eliquis; follows with Dr. Gómez & Dr. Abreu HTN (hypertension) (Chronic) Osteoporosis (Chronic) Hyperlipidemia (Chronic) Generalized anxiety disorder (Chronic) Mitral valve prolapse (Chronic) COPD (chronic obstructive pulmonary disease) Medical History Acute respiratory failure with hypoxia Recurrent pleural effusion Adenocarcinoma, lung Acute pneumothorax Gastritis History of colon polyps Dysphagia GERD (gastroesophageal reflux disease) Amputated toe Leg wound, left Cancer of upper lobe of left lung Hyponatremia Subcutaneous emphysema associated with surgical procedure Scoliosis History of breast cancer dx'd 2019 - right breast - hx lumpectomy + radiation History of migraine IBS (irritable bowel syndrome) SVT (supraventricular tachycardia) Family history of colon cancer Surgical History S/P thoracentesis Status post lobectomy of lung History of cardiac radiofrequency ablation x 2 History of esophagogastroduodenoscopy (EGD) History of colonoscopy S/P cardiac pacemaker procedure 2015 - A.fib - [facility] - last check 02/2021 per pt H/O breast surgery S/P eye surgery macular hole S/P bunionectomy History of appendectomy Family History Mother Breast cancer Colorectal cancer Aunt Breast cancer Colorectal cancer Sister Breast cancer Colorectal cancer Father Myocardial infarction Other Family history of colon cancer No family history of adverse response to anesthesia Denies family history of Ovarian cancer Prostate cancer Social History Smoking Status: Never smoker Tobacco Type: Cigarettes Age Started Using Tobacco: 18; Age Quit Using Tobacco: 37; packs per day: 0.5; Cigarettes Per Day: 20 yr for 1/5 pack per day; Second Hand Exposure: No; Do You Dip or Chew Tobacco: No; Hx Alcohol Use: No Hx Substance Use: No Preferred Language: Lithuanian Communication Ability: Effective Visual Impairment: No Limitations Hearing Ability: Normal 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 [employer] 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 Required: No Beliefs That Will Affect Care: None marital status: / Current Living Situation: Alone current occupational status: retired How many Children do You have: 4 Feels Safe at Home: Yes Childhood Exposure to Second-Hand Smoke: Yes Dental Care, Regularly: Yes Physical Activity Frequency: Daily Seatbelt Use: always Sunscreen Use: Yes Assistive Devices: None Allergies Allergies Allergy/AdvReac Type Severity Reaction Status Date / Time amoxicillin AdvReac Intermediate C DiFF Verified 11/22/24 18:20 Home Meds Home Medications Medication Instructions Recorded Confirmed multivitamin 1 tab PO DAILY 08/01/22 11/22/24 bumetanide 1 mg tablet 3 mg PO AMPM 11/20/24 11/22/24 dapagliflozin propanediol 10 mg 10 mg PO QAM 11/20/24 11/22/24 tablet (Farxiga) diltiazem HCl 120 mg 240 mg PO QPM 11/20/24 11/22/24 capsule,extended release 24 hr Previous Rx's Medication Instructions Recorded rosuvastatin 20 mg tablet 20 mg PO QPM #90 tabs 08/06/24 apixaban 5 mg tablet (Eliquis) 5 mg PO BID #60 tabs 11/04/24 Results & Data (ED) Vital Signs Vital Signs - 24 hr 11/22/24 15:39 11/22/24 15:50 11/22/24 15:50 Temperature 36.4 C L Temperature Source Temporal Artery Scan Pulse Rate 89 Pulse Rate from SpO2 Sensor Respiratory Rate 22 Respiratory Effort / Characteristics Non-Labored Spontaneous Labored Respiratory Depth Normal Respiratory Pattern Regular Blood Pressure 107/65 Blood Pressure Mean 79 Pulse Oximetry 75 L 85 L Oxygen Delivery Method Room Air Room Air Oxygen Flow Rate 4 Sepsis Recent Fever Within 48 Hours No Sepsis New/Unexplained Change in Mental Status N/A Sepsis Action Taken by Nursing No Action Required Oxygen Flow Rate - Titration 4 Pulse Oximetry Post Tiitration 94 11/22/24 16:01 11/22/24 16:04 11/22/24 16:15 Temperature Temperature Source Pulse Rate 79 91 H Pulse Rate from SpO2 Sensor 84 Respiratory Rate 19 Respiratory Effort / Characteristics Respiratory Depth Respiratory Pattern Blood Pressure 123/66 Blood Pressure Mean 93 Pulse Oximetry 92 Oxygen Delivery Method Nasal Cannula Oxygen Flow Rate 4 Sepsis Recent Fever Within 48 Hours Sepsis New/Unexplained Change in Mental Status Sepsis Action Taken by Nursing Oxygen Flow Rate - Titration Pulse Oximetry Post Tiitration 11/22/24 16:30 11/22/24 16:30 11/22/24 16:51 Temperature Temperature Source Pulse Rate 75 78 Pulse Rate from SpO2 Sensor 78 78 Respiratory Rate 23 25 H Respiratory Effort / Characteristics Respiratory Depth Respiratory Pattern Blood Pressure 121/76 Blood Pressure Mean 96 Pulse Oximetry 91 93 Oxygen Delivery Method Oxygen Flow Rate Sepsis Recent Fever Within 48 Hours Sepsis New/Unexplained Change in Mental Status Sepsis Action Taken by Nursing Oxygen Flow Rate - Titration Pulse Oximetry Post Tiitration 11/22/24 17:00 11/22/24 17:03 11/22/24 17:12 Temperature Temperature Source Pulse Rate 77 81 Pulse Rate from SpO2 Sensor 76 82 Respiratory Rate 21 21 Respiratory Effort / Characteristics Respiratory Depth Respiratory Pattern Blood Pressure 128/90 Blood Pressure Mean 113 Pulse Oximetry 95 93 Oxygen Delivery Method Oxygen Flow Rate Sepsis Recent Fever Within 48 Hours Sepsis New/Unexplained Change in Mental Status Sepsis Action Taken by Nursing Oxygen Flow Rate - Titration Pulse Oximetry Post Tiitration 11/22/24 17:18 11/22/24 17:30 11/22/24 17:33 Temperature Temperature Source Pulse Rate 83 79 Pulse Rate from SpO2 Sensor 84 82 Respiratory Rate 21 29 H Respiratory Effort / Characteristics Respiratory Depth Respiratory Pattern Blood Pressure 111/62 Blood Pressure Mean 88 Pulse Oximetry 94 93 Oxygen Delivery Method Oxygen Flow Rate Sepsis Recent Fever Within 48 Hours Sepsis New/Unexplained Change in Mental Status Sepsis Action Taken by Nursing Oxygen Flow Rate - Titration Pulse Oximetry Post Tiitration 11/22/24 17:42 Temperature Temperature Source Pulse Rate 73 Pulse Rate from SpO2 Sensor 76 Respiratory Rate 22 Respiratory Effort / Characteristics Respiratory Depth Respiratory Pattern Blood Pressure Blood Pressure Mean Pulse Oximetry 95 Oxygen Delivery Method Oxygen Flow Rate Sepsis Recent Fever Within 48 Hours Sepsis New/Unexplained Change in Mental Status Sepsis Action Taken by Nursing Oxygen Flow Rate - Titration Pulse Oximetry Post Tiitration Laboratory Data 11/22/24 16:00 11/22/24 16:00 Lab Results 11/22/24 11/22/24 Range/Units 16:00 16:08 WBC 7.77 (4.8-10.8) K/ul RBC 4.40 (4.20-5.40) M/uL Hgb 15.3 (12.0-16.0) g/dl Hct 46.3 (37.0-47.0) % MCV 105.2 H (80.0-100.0) fL MCH 34.8 H (25.0-34.0) pg MCHC 33.0 (32.0-36.0) g/dL RDW Std Deviation 67.9 H (36.4-46.3) fL RDW Coeff of [place] 17.6 H (11.5-14.5) % Plt Count 155 (130-400) K/uL MPV 9.5 (9.4-12.4) fL Immature Gran % (Auto) 0.4 % Neut % (Auto) 83.8 % Lymph % (Auto) 4.4 % Steele % (Auto) 10.4 % Eos % (Auto) 0.9 % Baso % (Auto) 0.1 % Neut # (Auto) 6.51 H (1.40-6.50) K/uL Lymph # (Auto) 0.34 L (1.20-3.40) K/uL Steele # (Auto) 0.81 H (0.11-0.59) K/uL Eos # (Auto) 0.07 (0.00-0.50) K/uL Baso # (Auto) 0.01 (0.00-0.20) K/uL Immature Gran # (Auto) 0.03 (0.01-0.20) K/uL VBG pH 7.45 H (7.36-7.41) VBG pCO2 49 (38-50) mmHg VBG pO2 48 mmHg VBG HCO3 34 mmol/L VBG O2 Saturation 77.7 % VBG Base Excess 8.6 mEq/L Sodium 137 (136-145) mmol/L Potassium 3.3 L (3.5-5.1) mmol/L Chloride 94 L (98-107) mmol/L Carbon Dioxide 34 H (21-32) mmol/L Anion Gap 9 (3-11) BUN 45 H (6-23) mg/dl Creatinine 1.22 H (0.6-1.2) mg/dl Est Cr Clr Drug Dosing 24.1 ml/min eGFR 43.22 BUN/Creatinine Ratio 36.9 H (10-20) Glucose 121 H (70-99(Fasting)) mg/dl Calcium 9.3 (8.6-10.3) mg/dl Magnesium 2.4 (1.7-2.4) mg/dl Total Bilirubin 1.1 H (0.2-1.0) mg/dl AST 32 (13-39) U/L ALT 21 (7-52) U/L Alkaline Phosphatase 127 H (34-104) U/L Troponin I High Sens 30.8 H (0-14) pg/ml B-Natriuretic Peptide 378 H (0-100) pg/ml Total Protein 6.5 (6.0-8.3) gm/dl Albumin 3.7 (3.4-5.0) gm/dl Globulin 2.8 (2.5-4.0) gm/dl Albumin/Globulin Ratio 1.3 (0.9-2) Administered Medications Diltiazem HCl (Diltiazem Hcl 240 Mg Capcr) 240 mg PO QPM MANE Stop: 12/22/24 20:59 Last Admin: 11/22/24 21:40 Dose: 240 mg Documented By: LEA Rosuvastatin Calcium (Rosuvastatin Calcium 20 Mg Tab) 20 mg PO QPM MANE Stop: 12/22/24 20:59 Last Admin: 11/22/24 21:40 Dose: 20 mg Documented By: LEA Discontinued Medications Bumetanide 3 mg/ Syringe 12 mls @ 4 mls/min IV ONE ONE Stop: 11/22/24 16:47 Last Admin: 11/22/24 17:33 Dose: 4 mls/min Documented By: JOVANY Potassium Chloride (Potassium Chloride Crtab 20 Meq Tabcr) 40 meq PO NOW STA Stop: 11/22/24 16:46 Last Admin: 11/22/24 17:06 Dose: Not Given Documented By: JOVANY Potassium Chloride (Potassium Chloride 20 Meq/15 Ml Udc) 40 meq PO NOW STA Stop: 11/22/24 17:03 Last Admin: 11/22/24 17:06 Dose: 40 meq Documented By: JOVANY Potassium Chloride (Potassium Chloride 20 Meq/15 Ml Udc) Confirm Administered Dose 40 meq .ROUTE .STK-MED ONE Stop: 11/22/24 17:04 Last Admin: 11/22/24 17:06 Dose: Not Given Documented By: JOVANY Imaging Data Radiologist's Impression: Chest X-Ray 11/22/24 15:54 CLINICAL HISTORY: Pleural effusion COMPARISON STUDY: 11/20/2024 FINDINGS: Stable pacemaker. Stable cardiomegaly without pulmonary vascular congestion. Small to moderate right-sided pleural effusion is increased. Similar small left pleural effusion. No pneumothorax. IMPRESSION: Increased right pleural effusion Electronically signed by Clemente Weber 11-22-2024 5:18 PM Discharge Plan Visit Data Chief Complaint: Shortness of Breath/Dyspnea Stated Complaint: LOW ON OX ED Provider: Loco Rodriguez Discharge Problem: Acute hypoxemic respiratory failure, Acute exacerbation of CHF (congestive heart failure), Pleural effusion, Pulmonary edema, Chronic venous insufficiency, Pulmonary hypertension, Acute hypokalemia Patient Disposition: Admitted As Inpatient Condition: Serious Discharge Instructions Interventions: ED Discharge Assessment Last Done: 11/22/24 19:59
[2024-11-22 16:10] LABS: Hematocrit (blood only) 46.3 % (37.0-47.0); Hemoglobin 15.3 g/dl (12.0-16.0); Immature Granulocytes # (auto) 0.03 K/uL (0.01-0.20); Immature Granulocytes % (auto) 0.4 %; Mean Corpuscular Hemoglobin 34.8 pg (25.0-34.0); Mean Corpuscular Volume 105.2 fL (80.0-100.0); Platelet Count 155 K/uL (130-400); RDW Standard Deviation 67.9 fL (36.4-46.3); Red Blood Count 4.40 M/uL (4.20-5.40); White Blood Count 7.77 K/ul (4.8-10.8)
[2024-11-22 16:27] LABS: Base Excess VBG 8.6 mEq/L; HCO3 VBG 34 mmol/L; Oxygen Saturation VBG 77.7 %; PCO2 VBG 49 mmHg (38-50); PO2 VBG 48 mmHg; pH VBG 7.45 (7.36-7.41)
[2024-11-22 16:31] LABS: Alanine Aminotransferase 21.0 U/L (7-52); Albumin Globulin Ratio 1.3 (0.9-2); Alkaline Phosphatase 127.0 U/L (34-104); Anion Gap 9.0 (3-11); Bilirubin,Total 1.1 mg/dl (0.2-1.0); Blood Urea Nitrogen 45.0 mg/dl (6-23); Calcium 9.3 mg/dl (8.6-10.3); Carbon Dioxide 34.0 mmol/L (21-32); Chloride 94.0 mmol/L (98-107); Creatinine Clr Calc Pharmacy 24.1 ml/min; Globulin 2.8 gm/dl (2.5-4.0); Glucose 121.0 mg/dl (70-99(Fasting)); Potassium 3.3 mmol/L (3.5-5.1); Sodium 137.0 mmol/L (136-145); Total Protein 6.5 gm/dl (6.0-8.3)
[2024-11-22 17:04] LABS: Magnesium 2.4 mg/dl (1.7-2.4)
[2024-11-22] MEDS: POTASSIUM CHLORIDE CRTAB 20 MEQ TABCR PO STA (17:06)
[2024-11-22] MEDS: POTASSIUM CHLORIDE 20 MEQ/15 ML UDC PO STA (17:06)
[2024-11-22] MEDS: POTASSIUM CHLORIDE 20 MEQ/15 ML UDC ONE (17:06)
--- NOTE | 2024-11-22 17:20 | XRay Report ---
CLINICAL HISTORY: Pleural effusion COMPARISON STUDY: 11/20/2024 FINDINGS: Stable pacemaker. Stable cardiomegaly without pulmonary vascular congestion. Small to moderate right-sided pleural effusion is increased. Similar small left pleural effusion. No pneumothorax. IMPRESSION: Increased right pleural effusion Electronically signed by Clemente Weber 11-22-2024 5:18 PM
[2024-11-22] MEDS: BUMETANIDE 3 MG in SYRINGE 0 ML IV ONE (17:33)
--- NOTE | 2024-11-22 18:42 | History & Physical Report ---
Date of Service November 22, 2024 Assessment & Plan (1) Heart failure with preserved ejection fraction: (2) Acute respiratory failure with hypoxia: (3) Pulmonary hypertension: (4) Chronic venous insufficiency: (5) Recurrent pleural effusion: (6) Atrial fibrillation: (7) Adenocarcinoma, lung: Plan This is an 84-year-old female with a history of HFpEF, recurrent right pleural effusion status post recurrent thoracentesis, lung adenocarcinoma status post lobectomy in 2022, paroxysmal atrial fibrillation on Eliquis, pulmonary hypertension who presents with shortness of breath,, hypoxia, leg swelling and chest x-ray shows that her right pleural fluid has reaccumulated. #Recurrent right pleural effusion/acute hypoxic respiratory failure/acute on chronic HFpEF She has had several thoracentesis in the past. Cytology has always been negative. Most likely secondary to CHF exacerbation During the previous hospitalization, she was admitted and discharged on the same day of 11/20 after having thoracentesis. She did not have much of IV diuretics in hospital. She got 3 mg of IV Bumex in the ER I have started her on 4 mg IV Bumex twice daily to start tomorrow I ordered a repeat chest x-ray to see if the fluid has improved in response to the diuretics Monitor strict I's and O's Monitor daily BMP Check echocardiogram. Last echo in our system was more than a year ago. Consult pulmonology in case she needs a repeat thoracentesis Hold Eliquis in anticipation of needing thoracentesis During this hospitalization, she will need to be diuresed intravenously. Some degree of renal dysfunction is to be expected for her to be able to breathe comfortably. #Paroxysmal atrial fibrillation Continue diltiazem Hold Eliquis in anticipation of thoracentesis #History of lung adenocarcinoma status post left upper lobe lobectomy in 2022 Treated by surgery No chemo or radiation was needed Patient tells me that her recent pleural fluid analysis was never suggestive of malignancy #Pulmonary hypertension Patient was on sildenafil She is concerned that the sildenafil caused her to get fluid overloaded. She googled the drug #Sick sinus syndrome status post pacemaker placement VTE prophylaxis: SCDs. Hold Eliquis in anticipation of thoracentesis Full code History of Present Illness Chief Complaint: Shortness of breath, hypoxia Primary Care Provider: Vilma Lopez MD This is an 84-year-old female with a history of lung adenocarcinoma status post left upper lobe lobectomy in 2022, HFpEF, paroxysmal atrial fibrillation on Eliquis, COPD, pulmonary hypertension, recurrent right pleural effusion status post recurrent thoracentesis, sick sinus syndrome status post pacemaker, hyperlipidemia who presented to the ER with shortness of breath and she checked her oxygen to be low in the 70s. This patient was recently discharged from the hospital on 11/20 after being admitted the same day, thoracentesis the same day. She says that she felt some relief after the thoracentesis but has been having worsening shortness of breath ever since. She says that she still had leg swelling on that day and did not feel like the fluid had come off of her. She was discharged on 3 mg p.o. Bumex twice daily which was her usual home dose but she decided to take 4 mg Bumex at night to see if that would help remove some of the fluid. Despite that, her legs stayed swollen and her breathing got worse. She is not short of breath at rest but with minimal exertion she gets short of breath and her oxygen level drops to the 70s. She has had multiple thoracentesis done so far and pleural fluid cytology has always been negative. She denied any fevers or chills, chest pain. She had a chest x-ray done that showed worsened right pleural effusion. Her BNP is mildly elevated at 378 which is lower than recent check 521. She was given 3 mg of IV Bumex in the emergency room. She is on 4 L of oxygen and at home she does not use any oxygen. Allergies Allergy/AdvReac Type Severity Reaction Status Date / Time amoxicillin AdvReac Intermediate C DiFF Verified 11/22/24 18:20 Home Medications Medication Instructions Recorded Confirmed Type multivitamin 1 tab PO DAILY 08/01/22 11/22/24 History rosuvastatin 20 mg tablet 20 mg PO QPM #90 tabs 08/06/24 11/22/24 Rx apixaban 5 mg tablet (Eliquis) 5 mg PO BID #60 tabs 11/04/24 11/22/24 Rx bumetanide 1 mg tablet 3 mg PO AMPM 11/20/24 11/22/24 History dapagliflozin propanediol 10 mg 10 mg PO QAM 11/20/24 11/22/24 History tablet (Farxiga) diltiazem HCl 120 mg 240 mg PO QPM 11/20/24 11/22/24 History capsule,extended release 24 hr Past Med/Surg History Problem List Heart failure with preserved ejection fraction Acute respiratory failure with hypoxia (Acute) Pulmonary hypertension (Acute) Chronic venous insufficiency Recurrent pleural effusion (Acute) Atrial fibrillation (Chronic) on eliquis; follows with Dr. Gómez & Dr. Abreu HTN (hypertension) (Chronic) Osteoporosis (Chronic) Hyperlipidemia (Chronic) Generalized anxiety disorder (Chronic) Mitral valve prolapse (Chronic) COPD (chronic obstructive pulmonary disease) Adenocarcinoma, lung (Acute) Medical History Acute pneumothorax Gastritis History of colon polyps Dysphagia GERD (gastroesophageal reflux disease) Amputated toe Leg wound, left Cancer of upper lobe of left lung Hyponatremia Subcutaneous emphysema associated with surgical procedure Scoliosis History of breast cancer dx'd 2019 - right breast - hx lumpectomy + radiation History of migraine IBS (irritable bowel syndrome) SVT (supraventricular tachycardia) Family history of colon cancer Surgical History S/P thoracentesis Status post lobectomy of lung History of cardiac radiofrequency ablation x 2 History of esophagogastroduodenoscopy (EGD) History of colonoscopy S/P cardiac pacemaker procedure 2014 - A.fib - [facility] - last check 02/2021 per pt H/O breast surgery S/P eye surgery macular hole S/P bunionectomy History of appendectomy Family History Mother Breast cancer Colorectal cancer Aunt Breast cancer Colorectal cancer Sister Breast cancer Colorectal cancer Father Myocardial infarction Other Family history of colon cancer No family history of adverse response to anesthesia Denies family history of Ovarian cancer Prostate cancer Social History Smoking Status: Former smoker Tobacco Type: Cigarettes Age Started Using Tobacco: 18; Age Quit Using Tobacco: 37; packs per day: 0.5; Cigarettes Per Day: 20 yr for 1/5 pack per day; Second Hand Exposure: No; Do You Dip or Chew Tobacco: No; Hx Alcohol Use: No Hx Substance Use: No Preferred Language: Spanish Communication Ability: Effective Visual Impairment: No Limitations Hearing Ability: Normal Paralegals Required: No Beliefs That Will Affect Care: None marital status: / Current Living Situation: Alone current occupational status: retired How many Children do You have: 4 Feels Safe at Home: Yes Childhood Exposure to Second-Hand Smoke: Yes Dental Care, Regularly: Yes Physical Activity Frequency: Daily Seatbelt Use: always Sunscreen Use: Yes Assistive Devices: None Review of Systems Review of Systems: All systems reviewed & are unremarkable except as noted in HPI & below Physical Exam Physical Exam: General: Awake, conversant. Elderly female sitting upright in bed. Heart: S1, S2/regular rate and rhythm, no murmur rubs or gallops Lungs: Diminished breath sound in the right lower lung field. Normal effort. Abdomen: Soft/nontender/nondistended. No hepatosplenomegaly Extremities: No clubbing/cyanosis. 2+ pitting bilateral edema Behavior: Appropriate, cooperative Results & Data Results & Data Vital Signs (Past 12 Hours) Vital Signs Temp Pulse Resp BP Pulse Ox O2 Del Method O2 Flow Rate 11/22/24 17:03 77 21 95 11/22/24 17:00 128/90 11/22/24 16:51 78 25 H 93 11/22/24 16:30 121/76 11/22/24 16:30 75 23 91 11/22/24 16:15 91 H 19 92 Nasal Cannula 4 11/22/24 16:04 79 11/22/24 16:01 123/66 11/22/24 15:50 4 11/22/24 15:50 85 L Room Air 11/22/24 15:39 36.4 C L 89 22 107/65 75 L Room Air Laboratory Results Abnormal lab results 11/22/24 11/22/24 Range/Units 16:00 16:08 MCV 105.2 H (80.0-100.0) fL MCH 34.8 H (25.0-34.0) pg RDW Std Deviation 67.9 H (36.4-46.3) fL RDW Coeff of [place] 17.6 H (11.5-14.5) % Neut # (Auto) 6.51 H (1.40-6.50) K/uL Lymph # (Auto) 0.34 L (1.20-3.40) K/uL [place] # (Auto) 0.81 H (0.11-0.59) K/uL VBG pH 7.45 H (7.36-7.41) Potassium 3.3 L (3.5-5.1) mmol/L Chloride 94 L (98-107) mmol/L Carbon Dioxide 34 H (21-32) mmol/L BUN 45 H (6-23) mg/dl Creatinine 1.22 H (0.6-1.2) mg/dl BUN/Creatinine Ratio 36.9 H (10-20) Glucose 121 H (70-99(Fasting)) mg/dl Total Bilirubin 1.1 H (0.2-1.0) mg/dl Alkaline Phosphatase 127 H (34-104) U/L Troponin I High Sens 30.8 H (0-14) pg/ml B-Natriuretic Peptide 378 H (0-100) pg/ml Diagnostic Findings Chest X-Ray 11/22/24 15:54 CLINICAL HISTORY: Pleural effusion COMPARISON STUDY: 11/20/2024 FINDINGS: Stable pacemaker. Stable cardiomegaly without pulmonary vascular congestion. Small to moderate right-sided pleural effusion is increased. Similar small left pleural effusion. No pneumothorax. IMPRESSION: Increased right pleural effusion Electronically signed by Clemente Weber 11-22-2024 5:18 PM Code Status & VTE Plan VTE Prophylaxis Plan VTE Prophylaxis will be ordered: Yes Reason for no VTE drug order: Treatment not indicated PG Care Time/CCT Total # of Minutes Spent Total Time Spent with Patient: Total time spent is greater than 50% in coordination of care (as documented) at patient's floor/unit and/or counseling patient: Coding Level of Care Code 81495 INT INP/OBS CARE 2/55MIN Diagnoses Chronic heart failure with preserved ejection fraction (HFpEF) I50.32 Heart failure chronicity: chronic Acute respiratory failure with hypoxia J96.01 Pulmonary hypertension I27.20 Chronic venous insufficiency I87.2 Recurrent pleural effusion J90 Atrial fibrillation I48.91 Atrial fibrillation type: unspecified Adenocarcinoma of lung, unspecified laterality C34.90 Laterality: unspecified laterality (1) Heart failure with preserved ejection fraction Heart failure chronicity: chronic Qualified Code(s): I50.32 - Chronic diastolic (congestive) heart failure (6) Atrial fibrillation Atrial fibrillation type: unspecified Qualified Code(s): I48.91 - Unspecified atrial fibrillation (7) Adenocarcinoma, lung Laterality: unspecified laterality Qualified Code(s): C34.90 - Malignant neoplasm of unspecified part of unspecified bronchus or lung
[2024-11-22] MEDS ORDERED: POLYETHYLENE (MIRALAX) 17 GM PACK PO PRN (20:13)
[2024-11-22] MEDS ORDERED: ONDANSETRON INJ 2 MG/ML 2 ML VIAL IV PRN (20:13)
[2024-11-22] MEDS: ROSUVASTATIN CALCIUM 20 MG TAB PO SCH (21:40)
[2024-11-23 06:20] LABS: Hematocrit (blood only) 42.1 % (37.0-47.0); Hemoglobin 14.0 g/dl (12.0-16.0); Mean Corpuscular Hemoglobin 35.4 pg (25.0-34.0); Mean Corpuscular Volume 106.6 fL (80.0-100.0); Platelet Count 143 K/uL (130-400); RDW Standard Deviation 67.2 fL (36.4-46.3); Red Blood Count 3.95 M/uL (4.20-5.40); White Blood Count 6.21 K/ul (4.8-10.8)
[2024-11-23 06:56] LABS: Anion Gap 9.0 (3-11); Blood Urea Nitrogen 42.0 mg/dl (6-23); Calcium 8.9 mg/dl (8.6-10.3); Carbon Dioxide 35.0 mmol/L (21-32); Chloride 97.0 mmol/L (98-107); Creatinine Clr Calc Pharmacy 25.2 ml/min; Glucose 100.0 mg/dl (70-99(Fasting)); Potassium 3.4 mmol/L (3.5-5.1); Sodium 141.0 mmol/L (136-145)
--- NOTE | 2024-11-23 08:05 | XRay Report ---
XR chest 1V portable CLINICAL HISTORY: CHF COMPARISON STUDY: 11/22/2024 FINDINGS: Stable pacemaker. Stable cardiomegaly with mild pulmonary vascular congestion. Stable bilat eral pleural effusions and lung base consolidation, right greater than left. No pneumothorax. IMPRESSION: Stable exam. ACT 112: Negative or not required by law. Electronically signed by: Chapincito Lester M.D. 11/23/2024 8:03 AM
[2024-11-23] MEDS: BUMETANIDE 4 MG in SYRINGE 0 ML IV SCH (08:10)
[2024-11-23] MEDS: POTASSIUM CHLORIDE / WTR 10 MEQ/100 ML PLCT IV SCH (08:10)
--- NOTE | 2024-11-23 10:04 | Hospitalist Progress Note ---
Date of Service November 23, 2024 Assessment & Plan (1) Heart failure with preserved ejection fraction: (2) Acute respiratory failure with hypoxia: (3) Pulmonary hypertension: (4) Chronic venous insufficiency: (5) Recurrent pleural effusion: (6) Atrial fibrillation: (7) Adenocarcinoma, lung: Plan This is an 84-year-old female with a history of HFpEF, recurrent right pleural effusion status post recurrent thoracentesis, lung adenocarcinoma status post lobectomy in 2022, paroxysmal atrial fibrillation on Eliquis, pulmonary hypertension who presents with shortness of breath,, hypoxia, leg swelling and chest x-ray shows that her right pleural fluid has reaccumulated. #Recurrent right pleural effusion/acute hypoxic respiratory failure/acute on chronic HFpEF She has had several thoracentesis in the past. Cytology has always been negative. Most likely secondary to CHF exacerbation During the previous hospitalization, she was admitted and discharged on the same day of 11/20 after having thoracentesis. She did not have much of IV diuretics in hospital. She got 3 mg of IV Bumex in the ER I have started her on 4 mg IV Bumex twice daily. She got her morning dose She is clinically feeling better. Breathing better. Repeat chest x-ray this morning does not show much improvement yet but of note she only got 1 dose of 3 mg of IV Bumex last evening. Monitor strict I's and O's Monitor daily BMP.. Kidney function tolerating IV Bumex Check echocardiogram.. Consult pulmonology. Hold Eliquis in anticipation of needing thoracentesis During this hospitalization, she will need to be diuresed intravenously. Some degree of renal dysfunction is to be expected for her to be able to breathe comfortably. Cardiology consult may be considered to assist with diuretic management #Paroxysmal atrial fibrillation Continue diltiazem Hold Eliquis in anticipation of thoracentesis #History of lung adenocarcinoma status post left upper lobe lobectomy in 2022 Treated by surgery No chemo or radiation was needed Patient tells me that her recent pleural fluid analysis was never suggestive of malignancy #Pulmonary hypertension Patient was on sildenafil She is concerned that the sildenafil caused her to get fluid overloaded. She googled the drug #Sick sinus syndrome status post pacemaker placement VTE prophylaxis: SCDs. Hold Eliquis in anticipation of thoracentesis Full code Admission and Anticipated Discharge Date Admission Date: November 22, 2024 Subjective Patient feels better from a breathing standpoint. She slept well. She got her morning dose of Bumex today and during my encounter, she felt like she needed to urinate. Review of Systems Review of Systems: All systems reviewed & are unremarkable except as noted in Subjective Physical Exam Physical Exam: General: Awake, conversant. Elderly female sitting at the edge of the bed. Heart: S1, S2/regular rate and rhythm, no murmur rubs or gallops Lungs: Diminished breath sound in the right lower lung field. Normal effort. Abdomen: Soft/nontender/nondistended. No hepatosplenomegaly Extremities: No clubbing/cyanosis. 1 - 2+ pitting bilateral edema Behavior: Appropriate, cooperative Results & Data Results & Data Vital Signs (Past 12 Hours) Vital Signs Temp Pulse Pulse Resp BP Pulse Ox Pulse Ox 11/23/24 08:00 11/23/24 08:00 90 11/23/24 07:50 89 L 11/23/24 07:21 36.6 C 73 18 116/68 86 L 11/23/24 07:00 74 11/23/24 03:44 36.6 C 70 18 121/72 90 11/22/24 23:36 36.4 C L 79 18 120/81 96 O2 Del Method O2 Del Method O2 Flow Rate O2 Flow Rate 11/23/24 08:00 Nasal Cannula 4 11/23/24 08:00 Nasal Cannula 4 11/23/24 07:50 Nasal Cannula 4.0 11/23/24 07:21 Nasal Cannula 4.0 11/23/24 07:00 11/23/24 03:44 Nasal Cannula 4 11/22/24 23:36 Nasal Cannula Laboratory Results Abnormal lab results 11/22/24 11/22/24 11/22/24 Range/Units 16:00 16:08 18:27 RBC (4.20-5.40) M/uL MCV 105.2 H (80.0-100.0) fL MCH 34.8 H (25.0-34.0) pg RDW Std Deviation 67.9 H (36.4-46.3) fL RDW Coeff of [place] 17.6 H (11.5-14.5) % Neut # (Auto) 6.51 H (1.40-6.50) K/uL Lymph # (Auto) 0.34 L (1.20-3.40) K/uL [place] # (Auto) 0.81 H (0.11-0.59) K/uL VBG pH 7.45 H (7.36-7.41) Potassium 3.3 L (3.5-5.1) mmol/L Chloride 94 L (98-107) mmol/L Carbon Dioxide 34 H (21-32) mmol/L BUN 45 H (6-23) mg/dl Creatinine 1.22 H (0.6-1.2) mg/dl BUN/Creatinine Ratio 36.9 H (10-20) Glucose 121 H (70-99(Fasting)) mg/dl Total Bilirubin 1.1 H (0.2-1.0) mg/dl Alkaline Phosphatase 127 H (34-104) U/L Troponin I High Sens 30.8 H 30.5 H (0-14) pg/ml B-Natriuretic Peptide 378 H (0-100) pg/ml 11/23/24 Range/Units 05:35 RBC 3.95 L (4.20-5.40) M/uL MCV 106.6 H (80.0-100.0) fL MCH 35.4 H (25.0-34.0) pg RDW Std Deviation 67.2 H (36.4-46.3) fL RDW Coeff of [place] 17.2 H (11.5-14.5) % Neut # (Auto) (1.40-6.50) K/uL Lymph # (Auto) (1.20-3.40) K/uL [place] # (Auto) (0.11-0.59) K/uL VBG pH (7.36-7.41) Potassium 3.4 L (3.5-5.1) mmol/L Chloride 97 L (98-107) mmol/L Carbon Dioxide 35 H (21-32) mmol/L BUN 42 H (6-23) mg/dl Creatinine (0.6-1.2) mg/dl BUN/Creatinine Ratio 36.5 H (10-20) Glucose 100 H (70-99(Fasting)) mg/dl Total Bilirubin (0.2-1.0) mg/dl Alkaline Phosphatase (34-104) U/L Troponin I High Sens (0-14) pg/ml B-Natriuretic Peptide (0-100) pg/ml Diagnostic Findings Chest X-Ray 07/26/25 15:54 CLINICAL HISTORY: Pleural effusion COMPARISON STUDY: 11/20/2024 FINDINGS: Stable pacemaker. Stable cardiomegaly without pulmonary vascular congestion. Small to moderate right-sided pleural effusion is increased. Similar small left pleural effusion. No pneumothorax. IMPRESSION: Increased right pleural effusion Electronically signed by Clemente Weber 11-22-2024 5:18 PM Chest X-Ray 11/23/24 17:39 XR chest 1V portable CLINICAL HISTORY: CHF COMPARISON STUDY: 11/22/2024 FINDINGS: Stable pacemaker. Stable cardiomegaly with mild pulmonary vascular congestion. Stable bilateral pleural effusions and lung base consolidation, right greater than left. No pneumothorax. IMPRESSION: Stable exam. ACT 112: Negative or not required by law. Electronically signed by: Chapincito Lester M.D. 11/23/2024 8:03 AM PG Care Time/CCT Total # of Minutes Spent Total Time Spent with Patient: Total time spent is greater than 50% in coordination of care (as documented) at patient's floor/unit and/or counseling patient: Coding Level of Care Code 72327 SUB INP/OBS CARE 2/35MIN Diagnoses Chronic heart failure with preserved ejection fraction (HFpEF) I50.32 Heart failure chronicity: chronic Acute respiratory failure with hypoxia J96.01 Pulmonary hypertension I27.20 Chronic venous insufficiency I87.2 Recurrent pleural effusion J90 Atrial fibrillation I48.91 Atrial fibrillation type: unspecified Adenocarcinoma of lung, unspecified laterality C34.90 Laterality: unspecified laterality (1) Heart failure with preserved ejection fraction Heart failure chronicity: chronic Qualified Code(s): I50.32 - Chronic diastolic (congestive) heart failure (6) Atrial fibrillation Atrial fibrillation type: unspecified Qualified Code(s): I48.91 - Unspecified atrial fibrillation (7) Adenocarcinoma, lung Laterality: unspecified laterality Qualified Code(s): C34.90 - Malignant neoplasm of unspecified part of unspecified bronchus or lung
--- NOTE | 2024-11-23 10:07 | Pulmonary Consultation ---
Date of Consultation November 23, 2024 Assessment & Plan (1) Acute hypoxemic respiratory failure: (2) Acute exacerbation of CHF (congestive heart failure): (3) Heart failure with preserved ejection fraction: Heart failure chronicity: chronic Qualified Code(s): I50.32 - Chronic diastolic (congestive) heart failure (4) Pulmonary hypertension: (5) Pleural effusion: Plan PFT 08/04/2024 personally reviewed: Mild obstructive lung dysfunction, normal TLC, moderate decrease in DLCO FVC 2.0 L 98%, FEV1 1.37 L 92%, FEV1/FVC 69%, RV 83%, TLC 86%, RV/TLC ratio 43, DLCO 46%, DLCO/VA 71% 2D echo 06/21/2023: 60%, severe LA and RA dilation, mild elevation of pulmonary artery systolic pressure -- Acute hypoxic respiratory failure with bilateral pleural effusion Likely secondary to HFpEF with history of A-fib History of multiple right-sided thoracentesis in the past, last right-sided thoracentesis was 09/19/2024, 59% lymphocytes Cytologies have been negative BNP 378 --Pulmonary hypertension Likely type II --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 For thoracentesis tomorrow I spent more than 75 minutes looking in the chart, images, discussing the plan of care with the patient, RN as well as primary team Please note the above document was generated using voice recognition software. It may contain grammatical, syntax or spelling errors.Any formal questions or concerns about the content, text or information contained within the body of this dictation should be directly addressed to the provider for clarification. History of Present Illness Attending Physician: Felicia Aguirre MD History of Present Illness 84-year-old female admitted to the hospital for shortness of breath Past medical history: A-fib on Eliquis, hypertension, dyslipidemia, pulmonary hypertension Pulmonary consulted for pleural effusion At the time of examination patient was saturating 96% on 6 L nasal cannula, I went down to 3 L Patient says that she is very compliant with her medications at home and takes his bumetanide 3 mg twice a day. She has not been feeling well since end of 11/20/2024 when she was sent home from the hospital per her request Denies any nausea or vomiting No abdominal pain No fever or chills No hemoptysis She follows up with cardiology in [place] who has started the patient on sildenafil as of April for pulmonary hypertension Social history: Approximately [id number] smoking history, quit at the age of 38. Allergies Allergy/AdvReac Type Severity Reaction Status Date / Time amoxicillin AdvReac Intermediate C DiFF Verified 11/22/24 18:20 Home Medications Medication Instructions Recorded Confirmed Type multivitamin 1 tab PO DAILY 08/01/22 11/22/24 History rosuvastatin 20 mg tablet 20 mg PO QPM #90 tabs 08/06/24 11/22/24 Rx apixaban 5 mg tablet (Eliquis) 5 mg PO BID #60 tabs 11/04/24 11/22/24 Rx bumetanide 1 mg tablet 3 mg PO AMPM 11/20/24 11/22/24 History dapagliflozin propanediol 10 mg 10 mg PO QAM 11/20/24 11/22/24 History tablet (Farxiga) diltiazem HCl 120 mg 240 mg PO QPM 11/20/24 11/22/24 History capsule,extended release 24 hr Patient History Medical History Acute respiratory failure with hypoxia Recurrent pleural effusion Adenocarcinoma, lung Acute pneumothorax Gastritis History of colon polyps Dysphagia GERD (gastroesophageal reflux disease) Amputated toe Leg wound, left Cancer of upper lobe of left lung Hyponatremia Subcutaneous emphysema associated with surgical procedure Scoliosis History of breast cancer dx'd 2019 - right breast - hx lumpectomy + radiation History of migraine IBS (irritable bowel syndrome) SVT (supraventricular tachycardia) Family history of colon cancer Surgical History S/P thoracentesis Status post lobectomy of lung History of cardiac radiofrequency ablation x 2 History of esophagogastroduodenoscopy (EGD) History of colonoscopy S/P cardiac pacemaker procedure 2015 - A.fib - [facility] - last check 02/2021 per pt H/O breast surgery S/P eye surgery macular hole S/P bunionectomy History of appendectomy Family History Mother Breast cancer Colorectal cancer Aunt Breast cancer Colorectal cancer Sister Breast cancer Colorectal cancer Father Myocardial infarction Other Family history of colon cancer No family history of adverse response to anesthesia Denies family history of Ovarian cancer Prostate cancer Social History Smoking Status: Never smoker Tobacco Type: Cigarettes Age Started Using Tobacco: 18; Age Quit Using Tobacco: 37; packs per day: 0.5; Cigarettes Per Day: 20 yr for 1/5 pack per day; Second Hand Exposure: No; Do You Dip or Chew Tobacco: No; Hx Alcohol Use: No Hx Substance Use: No Preferred Language: Vietnamese Communication Ability: Effective Visual Impairment: No Limitations Hearing Ability: Normal Loader Operator Required: No Beliefs That Will Affect Care: None marital status: / Current Living Situation: Alone current occupational status: retired How many Children do You have: 4 Feels Safe at Home: Yes Childhood Exposure to Second-Hand Smoke: Yes Dental Care, Regularly: Yes Physical Activity Frequency: Daily Seatbelt Use: always Sunscreen Use: Yes Assistive Devices: None Review of Systems 2 Review of Systems: All systems reviewed & are unremarkable except as noted in HPI & below Physical Exam 2 Physical Exam: Constitutional: No acute distress HEENT: EOMI, PERRLA Respiratory system: Decreased air entry bilaterally, more decreased on the right side, no wheeze, no rhonchi, positive crackles bilaterally CVS: S1-S2 positive, S3 gallop, no murmurs Abdomen: Soft, nontender, nondistended, positive bowel sounds x4 Extremities: +2 pulses bilaterally radialis/ dorsalis pedis, no cyanosis, n +2 pitting edema bilateral lower extremity Neuro: Awake alert oriented x3 Psych: Normal mood and affect G/U: No Jones Skin: no rashes, warm and dry Lymphatic: no cervical or axillary lymphadenopathy Results & Data Results & Data Vital Signs (Past 12 Hours) Vital Signs Temp Pulse Pulse Resp BP Pulse Ox O2 Del Method 11/23/24 07:50 89 L Nasal Cannula 11/23/24 07:21 36.6 C 73 18 116/68 86 L Nasal Cannula 11/23/24 07:00 74 11/23/24 03:44 36.6 C 70 18 121/72 90 Nasal Cannula 11/22/24 23:36 36.4 C L 79 18 120/81 96 Nasal Cannula 11/22/24 21:46 97 H O2 Flow Rate 11/23/24 07:50 4.0 11/23/24 07:21 4.0 11/23/24 07:00 11/23/24 03:44 4 11/22/24 23:36 11/22/24 21:46 Laboratory Results 11/23/24 05:35 11/23/24 05:35 PG Care Time/CCT Total # of Minutes Spent Total Time Spent with Patient: Total time spent is greater than 50% in coordination of care (as documented) at patient's floor/unit and/or counseling patient: [place] [address] INT INP/OBS CARE 3/75MIN Patient Type New Diagnoses Acute hypoxemic respiratory failure J96.01 Acute exacerbation of CHF (congestive heart failure) I50.9 Chronic heart failure with preserved ejection fraction (HFpEF) I50.32 Heart failure chronicity: chronic Pulmonary hypertension I27.20 Pleural effusion J90
[2024-11-23] MEDS: POTASSIUM CHLORIDE CRTAB 20 MEQ TABCR PO STA (10:13)
--- NOTE | 2024-11-23 15:34 | XCELERA ---
[id number]
[2024-11-23] MEDS: POTASSIUM CHLORIDE CRTAB 20 MEQ TABCR PO SCH (20:15)
[2024-11-24 06:22] LABS: Hematocrit (blood only) 44.6 % (37.0-47.0); Hemoglobin 14.3 g/dl (12.0-16.0); Mean Corpuscular Hemoglobin 34.9 pg (25.0-34.0); Mean Corpuscular Volume 108.8 fL (80.0-100.0); Platelet Count 137 K/uL (130-400); RDW Standard Deviation 67.3 fL (36.4-46.3); Red Blood Count 4.10 M/uL (4.20-5.40); White Blood Count 6.86 K/ul (4.8-10.8)
[2024-11-24 06:36] LABS: Anion Gap 5.0 (3-11); Blood Urea Nitrogen 30.0 mg/dl (6-23); Calcium 9.0 mg/dl (8.6-10.3); Carbon Dioxide 39.0 mmol/L (21-32); Chloride 96.0 mmol/L (98-107); Creatinine Clr Calc Pharmacy 24.0 ml/min; Glucose 98.0 mg/dl (70-99(Fasting)); Potassium 3.5 mmol/L (3.5-5.1); Sodium 140.0 mmol/L (136-145)
[2024-11-24] MEDS: ACETAMINOPHEN 325 MG TAB PO PRN (09:07)
--- NOTE | 2024-11-24 09:08 | Hospitalist Progress Note ---
Date of Service November 24, 2024 Assessment & Plan (1) Heart failure with preserved ejection fraction: Plan: -on bumex 4mg IV BID -echo showing EF 65-70% with severe pulm HTN -thoracentesis today -pulmonary following -cardiology consulted (2) Acute respiratory failure with hypoxia: Plan: -resolving (3) Pulmonary hypertension: Plan: -patient held sildenafil feeling it may have caused worsening CHF (4) Chronic venous insufficiency: (5) Recurrent pleural effusion: Plan: -thoracentesis today (6) Atrial fibrillation: Plan: Continue diltiazem Hold Eliquis in anticipation of thoracentesis today 11/24 (7) Adenocarcinoma, lung: Plan: -status post left upper lobe lobectomy in 2022 Treated by surgery No chemo or radiation was needed Plan This is an 84-year-old female with a history of HFpEF, recurrent right pleural effusion status post recurrent thoracentesis, lung adenocarcinoma status post lobectomy in 2022, paroxysmal atrial fibrillation on Eliquis, pulmonary hypertension who presents with shortness of breath,, hypoxia, leg swelling and chest x-ray shows that her right pleural fluid has reaccumulated. Admission and Anticipated Discharge Date Admission Date: November 22, 2024 Subjective No events overnight. Pt resting comfortably in bed. Review of Systems Review of Systems: CONST: Negative for fever, body aches and chills. HENT: Negative for neck pain/stiffness, headache, congestion, sore throat, swelling. EYES: Negative for discharge/pain or vision changes. RESP: Negative for cough/hemoptysis and shortness of breath. CV: Negative chest pain, difficulty breathing, palpitations. ABD: Negative pain, nausea, vomiting. : Negative increase frequency, dysuria, blood in urine or stool. MUSC: Negative for muscle aches, edema. SKIN: Negative rash, lesions/sores. NEURO: Negative headache, dizziness, weakness. Physical Exam Physical Exam: GENERAL APPEARANCE NAD, activity normal for age, well developed/ well nourished, no cyanosis, pallor, or diaphoresis. EYES lids/conjunctiva normal. EARS/NOSE/THROAT Mucous membranes moist, nares normal, lips/teeth normal uvula midline without oral pharyngeal erythema, exudate or swelling TMs normal bilaterally. No lymphangitis/lymphedema. HEAD/NECK normocephalic atraumatic, no facial trauma, neck is supple. RESPIRATORY respiratory effort normal, speaks in full sentences, no tripod position, no accessory muscle use. Lungs clear to auscultation without rhonchi, wheezes, rales CARDIAC Regular rate and rhythm, no edema. ABDOMINAL Soft, ND/NT. No evidence of fluid wave. No pulsatile masses on exam, rebound tenderness, Stout sign or pain over Mcburney's point. MUSCLES/EXTREMITIES No abnormal range of motion, no swelling. SKIN Warm, pink and dry. No rashes, dermatoses, petechiae or lesions. NEUROLOGICAL Speech is clear and appropriate. Normal level of consciousness. Gait and coordination are normal. 5/5 strength in all extremities. PSYCH Normal mood and affect. Judgement/competence is appropriate Results & Data Results & Data Vital Signs (Past 12 Hours) Vital Signs Temp Pulse Pulse Resp BP Pulse Ox O2 Del Method 11/24/24 07:52 36.7 C 93 H 16 115/78 90 Nasal Cannula 11/24/24 03:41 36.5 C 64 18 117/73 94 Nasal Cannula 11/23/24 23:27 36.5 C 82 17 125/75 93 Room Air 11/23/24 22:31 73 O2 Flow Rate 11/24/24 07:52 3 11/24/24 03:41 2 11/23/24 23:27 11/23/24 22:31 PG Care Time/CCT Total # of Minutes Spent Total Time Spent with Patient: Total time spent is greater than 50% in coordination of care (as documented) at patient's floor/unit and/or counseling patient: Coding Level of Care Code 21294 SUB INP/OBS CARE 2/35MIN Diagnoses Chronic heart failure with preserved ejection fraction (HFpEF) I50.32 Heart failure chronicity: chronic Acute respiratory failure with hypoxia J96.01 Pulmonary hypertension I27.20 Chronic venous insufficiency I87.2 Recurrent pleural effusion J90 Atrial fibrillation I48.91 Atrial fibrillation type: unspecified Adenocarcinoma of lung, unspecified laterality C34.90 Laterality: unspecified laterality (1) Heart failure with preserved ejection fraction Heart failure chronicity: chronic Qualified Code(s): I50.32 - Chronic diastolic (congestive) heart failure (6) Atrial fibrillation Atrial fibrillation type: unspecified Qualified Code(s): I48.91 - Unspecified atrial fibrillation (7) Adenocarcinoma, lung Laterality: unspecified laterality Qualified Code(s): C34.90 - Malignant neoplasm of unspecified part of unspecified bronchus or lung
--- NOTE | 2024-11-24 09:26 | Cardiology Consultation ---
Date of Consultation November 24, 2024 History of Present Illness Attending Physician: Trevor Deluca MD Allergies Allergy/AdvReac Type Severity Reaction Status Date / Time amoxicillin AdvReac Intermediate C DiFF Verified 11/22/24 18:20 Home Medications Medication Instructions Recorded Confirmed Type multivitamin 1 tab PO DAILY 08/01/22 11/22/24 History rosuvastatin 20 mg tablet 20 mg PO QPM #90 tabs 08/06/24 11/22/24 Rx apixaban 5 mg tablet (Eliquis) 5 mg PO BID #60 tabs 11/04/24 11/22/24 Rx bumetanide 1 mg tablet 3 mg PO AMPM 11/20/24 11/22/24 History dapagliflozin propanediol 10 mg 10 mg PO QAM 11/20/24 11/22/24 History tablet (Farxiga) diltiazem HCl 120 mg 240 mg PO QPM 11/20/24 11/22/24 History capsule,extended release 24 hr Patient History Medical History Acute respiratory failure with hypoxia Recurrent pleural effusion Adenocarcinoma, lung Acute pneumothorax Gastritis History of colon polyps Dysphagia GERD (gastroesophageal reflux disease) Amputated toe Leg wound, left Cancer of upper lobe of left lung Hyponatremia Subcutaneous emphysema associated with surgical procedure Scoliosis History of breast cancer dx'd 2019 - right breast - hx lumpectomy + radiation History of migraine IBS (irritable bowel syndrome) SVT (supraventricular tachycardia) Family history of colon cancer Surgical History S/P thoracentesis Status post lobectomy of lung History of cardiac radiofrequency ablation x 2 History of esophagogastroduodenoscopy (EGD) History of colonoscopy S/P cardiac pacemaker procedure 2015 - A.fib - [facility] - last check 02/2021 per pt H/O breast surgery S/P eye surgery macular hole S/P bunionectomy History of appendectomy Family History Mother Breast cancer Colorectal cancer Aunt Breast cancer Colorectal cancer Sister Breast cancer Colorectal cancer Father Myocardial infarction Other Family history of colon cancer No family history of adverse response to anesthesia Denies family history of Ovarian cancer Prostate cancer Social History Smoking Status: Never smoker Tobacco Type: Cigarettes Age Started Using Tobacco: 18; Age Quit Using Tobacco: 37; packs per day: 0.5; Cigarettes Per Day: 20 yr for 1/5 pack per day; Second Hand Exposure: No; Do You Dip or Chew Tobacco: No; Hx Alcohol Use: No Hx Substance Use: No Preferred Language: Polish Communication Ability: Effective Visual Impairment: No Limitations Hearing Ability: Normal Cloth Opener Hand Required: No Beliefs That Will Affect Care: None marital status: / Current Living Situation: Alone current occupational status: retired How many Children do You have: 4 Feels Safe at Home: Yes Childhood Exposure to Second-Hand Smoke: Yes Dental Care, Regularly: Yes Physical Activity Frequency: Daily Seatbelt Use: always Sunscreen Use: Yes Assistive Devices: None Results & Data Vital Signs (Past 12 Hours) Vital Signs Temp Pulse Pulse Resp BP Pulse Ox O2 Del Method 11/24/24 07:52 36.7 C 93 H 16 115/78 90 Nasal Cannula 11/24/24 03:41 36.5 C 64 18 117/73 94 Nasal Cannula 11/23/24 23:27 36.5 C 82 17 125/75 93 Room Air 11/23/24 22:31 73 O2 Flow Rate 11/24/24 07:52 3 11/24/24 03:41 2 11/23/24 23:27 11/23/24 22:31 Laboratory Results Laboratory Results - last 24 hr 11/24/24 05:35 WBC 6.86 RBC 4.10 L Hgb 14.3 Hct 44.6 MCV 108.8 H MCH 34.9 H MCHC 32.1 RDW Std Deviation 67.3 H RDW Coeff of [place] 16.8 H Plt Count 137 MPV 10.2 Sodium 140 Potassium 3.5 Chloride 96 L Carbon Dioxide 39 H Anion Gap 5 BUN 30 H Creatinine 1.20 Est Cr Clr Drug Dosing 24.0 eGFR 44.08 BUN/Creatinine Ratio 25.0 H Glucose 98 Calcium 9.0 Diagnostic Findings Labs reviewed and notable for elevated high-sensitivity troponin peaking at 41, elevated BNP (baseline), stable renal function, normal magnesium, normal transaminase levels, excellent LDL, normal blood counts. History and physical report reviewed. Echo 11/23/2024: Normal LV size, wall motion, systolic function. EF 65-70%. Moderate LVH. Borderline dilated RV with grossly normal systolic function. Mild bileaflet mitral valve prolapse with mild MR. RVSP 67. Compared to prior echo on 04/26/2023, RVSP has increased. ECG personally reviewed 11/22/2024: Atrial fibrillation 77 bpm. Nonspecific T wave abnormality. Pulmonary consultation reviewed from 11/23/2024. Chest x-ray 11/23/2024: Mild pulmonary vascular congestion per radiology. Bilateral pleural effusions, right greater than left. Medications Administered Current Inpatient Medications Acetaminophen (Acetaminophen 325 Mg Tab) 650 mg PO Q4H PRN PRN Reason: Pain or Fever Stop: 12/22/24 20:12 Last Admin: 11/24/24 09:07 Dose: 650 mg Diltiazem HCl (Diltiazem Hcl 240 Mg Capcr) 240 mg PO QPM [facility] Stop: 12/22/24 20:59 Last Admin: 11/23/24 20:16 Dose: 240 mg Bumetanide 4 mg/ Syringe 16 mls @ 4 mls/min IV BID@0900,1700 [facility] Stop: 12/23/24 08:59 Last Admin: 11/24/24 08:52 Dose: 4 mls/min Ondansetron HCl (Ondansetron Inj 2 Mg/Ml 2 Ml Vial) 4 mg IV Q6H PRN PRN Reason: Nausea Stop: 12/22/24 20:12 Polyethylene Glycol (Polyethylene (Miralax) 17 Gm Pack) 17 gm PO DAILY PRN PRN Reason: Constipation Stop: 12/22/24 20:12 Potassium Chloride (Potassium Chloride Crtab 20 Meq Tabcr) 40 meq PO BID [facility] Stop: 12/23/24 20:59 Last Admin: 11/24/24 08:51 Dose: 40 meq Rosuvastatin Calcium (Rosuvastatin Calcium 20 Mg Tab) 20 mg PO QPM [facility] Stop: 12/22/24 20:59 Last Admin: 11/23/24 20:16 Dose: 20 mg PG Care Time/CCT Total # of Minutes Spent Total Time Spent with Patient: Total time spent is greater than 50% in coordination of care (as documented) at patient's floor/unit and/or counseling patient: Coding
--- NOTE | 2024-11-24 09:59 | Cardiology Consultation ---
Date of Consultation November 24, 2024 Assessment & Plan (1) Acute exacerbation of CHF (congestive heart failure): (2) Acute hypoxemic respiratory failure: (3) Pleural effusion: (4) Atrial fibrillation: (5) Pulmonary hypertension: Plan Case discussed with Dr. Lamberto Jackson, Assessment/plan and further recommendations as outlined by Dr. Jackson Supervising Physician Co-Signing Physician Notes 84 yo woman presenting with worsening dyspnea - hypoxemia Recent D/C 11-20-2024 Thoracentesis - Lung Adenocarcinoma s/p RU Lobectomy (2022) COPD Recurrent Right Pleural effusions (managed by repeat thoracentesis) ProBNP 378 EKG - coarse Afib with no active ischemic changes Troponin 30 - chronically elevated - no changes Consults - CHF. Hx: * Pulm HTN * HFpEF * Afib * Sick sinus - s/p pacer * Hyperlipidemia Plans: * SBP 111mmHg * HR 75 * Continue Diltiazem 240 mg po per day * Appears to be in afib/flutter * Afib - permanent since 2014 - rate controlled + anticoagulation (management strategy) * DOAC held in anticipation of Thoracentesis * Consider restarting DOAC when safe * Since 03/2023, patient has had about multiple thoracentesis for recurrent pleural effusions * Thoracentesis appear to be needed more frequently as of late * Question of indwelling catheter to facilitate drainage vs other interventions * May be useful to check Pleural fluid for malignant cells and characterize as transudate vs exudate; check triglycerides to ensure it is not a chylothorax * Effusion from 11/20 - no malignant cells * Effusion appears to be [id number] to degree of CHF * May be worth preforming a Chest CT to evaluate pulmonary parenchyma * ProBNP not markedly elevated; IVC not markedly dilated on ECHO from yesterday - this would suggest that pleural effusions may be running a clinical course independent of HFpEF. * Continue Bumex 3 mg po per day/BID * K+ goal 4.5-5 * Kdur 40 meq po BID * Mag++ goal >2 - please check * Check TSH * LDL 35 (09/2024) - severe coronary calcifications on Chest CT * Continue Crestor 20 mg po per day * 60 min spent addressing challenges, educating and advancing daily plan of care * Will arrange for f/u with Cardiology * Please call back with any additional questions Lamberto Jackson History of Present Illness Reason for Consultation: CHF Requesting Physician: DEVYN hospitalist Attending Physician: Trevor Deluca MD History of Present Illness HPI: patient is a 84 year old female with PMH significant for lung adenocarcinoma s/p Left upper lobectomy 2022, HFpEF, P. A-fib on Eliquis, COPD, Pulmonary HTN, recurrent right pleural effusion s/p recurrent thoracentesis, SSS s/p PPM, HLD that presented to the ER with shortness of breath with a home O2 pulse ox in the 70's. Of note, Patient was recently discharged from [facility] 11/20 after same day admission with thoracentesis. She was discharge on Bumex 3mg PO BID, but decided to take 4mg the night prior to admission to see if it would help her breathing and lower extremity edema. Pulmonology is on consult and patient is to undergo a thoracentesis today. Requested cardiology input regarding diuretics. EKG on admission Atrial flutter with variable AV block Echo as noted under diagnostics. Allergies Allergy/AdvReac Type Severity Reaction Status Date / Time amoxicillin AdvReac Intermediate C DiFF Verified 11/22/24 18:20 Home Medications Medication Instructions Recorded Confirmed Type multivitamin 1 tab PO DAILY 08/01/22 11/22/24 History rosuvastatin 20 mg tablet 20 mg PO QPM #90 tabs 08/06/24 11/22/24 Rx apixaban 5 mg tablet (Eliquis) 5 mg PO BID #60 tabs 11/04/24 11/22/24 Rx bumetanide 1 mg tablet 3 mg PO AMPM 11/20/24 11/22/24 History dapagliflozin propanediol 10 mg 10 mg PO QAM 11/20/24 11/22/24 History tablet (Farxiga) diltiazem HCl 120 mg 240 mg PO QPM 11/20/24 11/22/24 History capsule,extended release 24 hr Patient History Medical History Acute respiratory failure with hypoxia Recurrent pleural effusion Adenocarcinoma, lung Acute pneumothorax Gastritis History of colon polyps Dysphagia GERD (gastroesophageal reflux disease) Amputated toe Leg wound, left Cancer of upper lobe of left lung Hyponatremia Subcutaneous emphysema associated with surgical procedure Scoliosis History of breast cancer dx'd 2019 - right breast - hx lumpectomy + radiation History of migraine IBS (irritable bowel syndrome) SVT (supraventricular tachycardia) Family history of colon cancer Surgical History S/P thoracentesis Status post lobectomy of lung History of cardiac radiofrequency ablation x 2 History of esophagogastroduodenoscopy (EGD) History of colonoscopy S/P cardiac pacemaker procedure 2015 - A.fib - [facility] - last check 02/2021 per pt H/O breast surgery S/P eye surgery macular hole S/P bunionectomy History of appendectomy Family History Mother Breast cancer Colorectal cancer Aunt Breast cancer Colorectal cancer Sister Breast cancer Colorectal cancer Father Myocardial infarction Other Family history of colon cancer No family history of adverse response to anesthesia Denies family history of Ovarian cancer Prostate cancer Social History Smoking Status: Never smoker Tobacco Type: Cigarettes Age Started Using Tobacco: 18; Age Quit Using Tobacco: 37; packs per day: 0.5; Cigarettes Per Day: 20 yr for 1/5 pack per day; Second Hand Exposure: No; Do You Dip or Chew Tobacco: No; Hx Alcohol Use: No Hx Substance Use: No Preferred Language: Latvian Communication Ability: Effective Visual Impairment: No Limitations Hearing Ability: Normal 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 Lamberto Jackson Physical Exam Physical Exam: As documented by Dr. Lamberto Jackson O2 via NC No Elevation in JVP S1S2 S2/6 soft systolic murmur CTA B No c/c Trace edema Warm and perfused Results & Data Vital Signs (Past 12 Hours) Vital Signs Temp Pulse Pulse Resp BP Pulse Ox O2 Del Method 11/24/24 09:51 77 11/24/24 09:42 Nasal Cannula 11/24/24 07:52 36.7 C 93 H 16 115/78 90 Nasal Cannula 11/24/24 03:41 36.5 C 64 18 117/73 94 Nasal Cannula 11/23/24 23:27 36.5 C 82 17 125/75 93 Room Air 11/23/24 22:31 73 O2 Flow Rate 11/24/24 09:51 11/24/24 09:42 3 11/24/24 07:52 3 11/24/24 03:41 2 11/23/24 23:27 11/23/24 22:31 Diagnostic Findings ECHOcardiogram: 11-23-2024 * LVEF 65-70% * No WMA * Moderate LVH * Borderline dilated LV * MR - mild; mild bileaflet prolapse * No * RV not well visualized * Borderline RV enlargement * Pulm HTN - RVSP 67 mmHg * IVC - normal RV size with reduced inspiratory collapse CXR: 11-23-2024 * Large Right Pleural Effusion CXR - 11-24-2024 * S/P Right Thoracentesis * Interval/Significant improvement in size of right pleural effusion with improved righ ling aeration; pacer in place Medications Administered Current Inpatient Medications Acetaminophen (Acetaminophen 325 Mg Tab) 650 mg PO Q4H PRN PRN Reason: Pain or Fever Stop: 12/22/24 20:12 Last Admin: 11/24/24 09:07 Dose: 650 mg Diltiazem HCl (Diltiazem Hcl 240 Mg Capcr) 240 mg PO QPM [facility] Stop: 12/22/24 20:59 Last Admin: 11/23/24 20:16 Dose: 240 mg Bumetanide 4 mg/ Syringe 16 mls @ 4 mls/min IV BID@0900,1700 [facility] Stop: 12/23/24 08:59 Last Admin: 11/24/24 08:52 Dose: 4 mls/min Ondansetron HCl (Ondansetron Inj 2 Mg/Ml 2 Ml Vial) 4 mg IV Q6H PRN PRN Reason: Nausea Stop: 12/22/24 20:12 Polyethylene Glycol (Polyethylene (Miralax) 17 Gm Pack) 17 gm PO DAILY PRN PRN Reason: Constipation Stop: 12/22/24 20:12 Potassium Chloride (Potassium Chloride Crtab 20 Meq Tabcr) 40 meq PO BID [facility] Stop: 12/23/24 20:59 Last Admin: 11/24/24 08:51 Dose: 40 meq Rosuvastatin Calcium (Rosuvastatin Calcium 20 Mg Tab) 20 mg PO QPM [facility] Stop: 12/22/24 20:59 Last Admin: 11/23/24 20:16 Dose: 20 mg PG Care Time/CCT Total # of Minutes Spent Total Time Spent with Patient: Total time spent is greater than 50% in coordination of care (as documented) at patient's floor/unit and/or counseling patient: [place] [address] IN/OBS CONSULT LVL 4,60M Patient Type New Diagnoses Acute exacerbation of CHF (congestive heart failure) I50.9 Acute hypoxemic respiratory failure J96.01 Pleural effusion J90 Atrial fibrillation I48.91 Atrial fibrillation type: unspecified Pulmonary hypertension I27.20 Time Spent (min) 20 (4) Atrial fibrillation Atrial fibrillation type: unspecified Qualified Code(s): I48.91 - Unspecified atrial fibrillation
--- NOTE | 2024-11-24 10:43 | Ultrasound Report ---
ULTRASOUND-GUIDED RIGHT THORACENTESIS CLINICAL HISTORY: Large right pleural effusion PROCEDURE: Procedure and risks were explained. Informed consent was obtained. A final timeout was com pleted. The right posterior thorax was prepped and draped in sterile fashion. 1% lidocaine was utiliz ed for skin anesthesia. Utilizing ultrasound guidance, a 5 Samoan safety centesis catheter was advanced into the right pleura l effusion. Ultrasound images were obtained. A total of 1000 mL of zabala pleural fluid was removed a nd discarded. The catheter was removed and Band-Aid applied. The patient tolerated the procedure well . A chest x-ray will be obtained post procedure. Vital signs will be monitored postprocedure. IMPRESSION: Ultrasound-guided right thoracentesis as above. Performed, dictated, and signed by Lance Narayanan PA-C; to be co-signed by Dr. Chapincito Lester. Electronically signed by: Chapincito Lester M.D. 11/24/2024 11:06 AM
--- NOTE | 2024-11-24 10:45 | XRay Report ---
XR chest 1V not portable CLINICAL HISTORY: s/p rt thora COMPARISON STUDY: 11/23/2024 FINDINGS: Stable pacemaker. Stable cardiomegaly with mild pulmonary vascular congestion. Stable small left pleural effusion. There is a trace right pleural effusion, improved. No pneumothorax seen. IMPRESSION: No pneumothorax seen. ACT 112: Negative or not required by law. Electronically signed by: Chapincito Lester M.D. 11/24/2024 10:43 AM
--- NOTE | 2024-11-24 12:45 | Pulmonology Progress Note ---
Date of Service November 24, 2024 Assessment & Plan (1) Acute hypoxemic respiratory failure: (2) Acute exacerbation of CHF (congestive heart failure): (3) Heart failure with preserved ejection fraction: Heart failure chronicity: chronic Qualified Code(s): I50.32 - Chronic diastolic (congestive) heart failure (4) Pulmonary hypertension: (5) Pleural effusion: Plan PFT 08/04/2024 personally reviewed: Mild obstructive lung dysfunction, normal TLC, moderate decrease in DLCO FVC 2.0 L 98%, FEV1 1.37 L 92%, FEV1/FVC 69%, RV 83%, TLC 86%, RV/TLC ratio 43, DLCO 46%, DLCO/VA 71% 2D echo 06/21/2023: 60%, severe LA and RA dilation, mild elevation of pulmonary artery systolic pressure -- Acute hypoxic respiratory failure with bilateral pleural effusion Likely secondary to HFpEF with history of A-fib History of multiple right-sided thoracentesis in the past, last right-sided thoracentesis was 11/20/2024, 30% lymphocytes Presenting back 4 days from last thoracentesis for right pleural effusion. Cytologies have been negative BNP 378 --Pulmonary hypertension Likely type II Followed by cardiology in [place] Repeat TTE 11/23/2024 showed EF 65-70%, normal LV size and systolic function, dilated RV w/ grossly normal RV systolic function, RSVP 67. --History of adenocarcinoma of the lung Left upper lobe s/p resection -- A-fib On Eliquis Plan: -Recommend strict ins and outs measurements -Diuretics to keep the patient negative balance at least 1 L a day. 936ml in last 24 hrs. -Additional spironolactone could be thought of -Thoracentesis completed today with 1 liter of fluid removed from right side. Can restart Eliquis this evening or per IR recs. -2 step oxygen qualification ordered to assess for home oxygen. Admission and Anticipated Discharge Date Admission Date: November 22, 2024 Subjective "I don't know if I notice any changes to my breathing." Patient underwent a IR guided thoracentesis this am with 1 liter of fluid removed. Pleural fluid studies pending. Past studies consistent with transudative effusion. Oxygen weaned to 2L NC as SpO2 noted to be 96% on 3L. Patient continuing diuresis with Bumex 4mg bid and is negative 900ml in the past 24hrs. 2 step oxygen qualification ordered to assess for home oxygen. Review of Systems 2 Review of Systems: All systems reviewed & are unremarkable except as noted in HPI & below Physical Exam 2 Physical Exam: VITALS: Reviewed. WEIGHT/BMI reviewed. GEN: Age appropriate, well-developed, NAD. PSYCH: Good Judgment. AOx3. Normal memory, mood, and affect. HEENT -Head: NC/AT; -Eyes: PERRL, EOMI. No discharge or redn ess; -Ears: External ears are normal. -Nose: Normal nares. NECK: Supple, with no masses. CV: RRR, no m/r/g. LUNGS: Clear in b/l buper lobes with diminished b/l bases. Chest rise symmetrical. Breathing nonlabored. ABD: Soft, NT/ND, NBS, no masses or organomegaly. : N/A SKIN: Warm, well perfused. No skin rashes or abnormal lesions. MSK: No deformities, Normal gait. EXT: No clubbing, cyanosis, or edema. NEURO: Normal muscle strength and tone. No focal deficits. Results & Data Results & Data Vital Signs (Past 12 Hours) Vital Signs Temp Pulse Pulse Pulse Pulse Pulse Pulse 11/24/24 11:37 88 99 H 102 H 101 H 11/24/24 10:52 36.5 C 75 11/24/24 09:51 77 11/24/24 09:42 11/24/24 07:52 36.7 C 93 H 11/24/24 03:41 36.5 C 64 Pulse Resp Resp Resp Resp Resp Resp 11/24/24 11:37 86 17 18 18 18 17 11/24/24 10:52 17 11/24/24 09:51 11/24/24 09:42 11/24/24 07:52 16 11/24/24 03:41 18 BP Pulse Ox Pulse Ox Pulse Ox Pulse Ox Pulse Ox Pulse Ox 11/24/24 11:37 91 86 L 87 L 90 84 L 11/24/24 10:52 111/72 98 11/24/24 09:51 11/24/24 09:42 11/24/24 07:52 115/78 90 11/24/24 03:41 117/73 94 O2 Del Method O2 Flow Rate O2 Flow Rate O2 Flow Rate O2 Flow Rate O2 Flow Rate 11/24/24 11:37 1.5 1.5 2 3 11/24/24 10:52 Nasal Cannula 3 11/24/24 09:51 11/24/24 09:42 Nasal Cannula 3 11/24/24 07:52 Nasal Cannula 3 11/24/24 03:41 Nasal Cannula 2 Laboratory Results 11/24/24 05:35 11/24/24 05:35 Abnormal Lab Results 11/24/24 05:35 WBC 6.86 RBC 4.10 L Hgb 14.3 Hct 44.6 MCV 108.8 H MCH 34.9 H MCHC 32.1 RDW Std Deviation 67.3 H RDW Coeff of [place] 16.8 H Plt Count 137 MPV 10.2 Sodium 140 Potassium 3.5 Chloride 96 L Carbon Dioxide 39 H Anion Gap 5 BUN 30 H Creatinine 1.20 Est Cr Clr Drug Dosing 24.0 eGFR 44.08 BUN/Creatinine Ratio 25.0 H Glucose 98 Calcium 9.0 Diagnostic Findings Thoracentesis/Paracentesis US 11/24/24 00:00 ULTRASOUND-GUIDED RIGHT THORACENTESIS CLINICAL HISTORY: Large right pleural effusion PROCEDURE: Procedure and risks were explained. Informed consent was obtained. A final timeout was completed. The right posterior thorax was prepped and draped in sterile fashion. 1% lidocaine was utilized for skin anesthesia. Utilizing ultrasound guidance, a 5 Estonian safety centesis catheter was advanced into the right pleural effusion. Ultrasound images were obtained. A total of 1000 mL of zabala pleural fluid was removed and discarded. The catheter was removed and Band-Aid applied. The patient tolerated the procedure well. A chest x-ray will be obtained post procedure. Vital signs will be monitored postprocedure. IMPRESSION: Ultrasound-guided right thoracentesis as above. Performed, dictated, and signed by Lance Narayanan PA-C; to be co-signed by Dr. Chapincito Lester. Electronically signed by: Chapincito Lester M.D. 11/24/2024 11:06 AM Chest X-Ray 11/24/24 10:13 XR chest 1V not portable CLINICAL HISTORY: s/p rt thora COMPARISON STUDY: 11/23/2024 FINDINGS: Stable pacemaker. Stable cardiomegaly with mild pulmonary vascular congestion. Stable small left pleural effusion. There is a trace right pleural effusion, improved. No pneumothorax seen. IMPRESSION: No pneumothorax seen. ACT 112: Negative or not required by law. Electronically signed by: Chapincito Lester M.D. 11/24/2024 10:43 AM PG Care Time/CCT Total # of Minutes Spent Total Time Spent with Patient: Total time spent is greater than 50% in coordination of care (as documented) at patient's floor/unit and/or counseling patient: Coding Level of Care Code 32653 SUB INP/OBS CARE 2/35MIN Diagnoses Acute hypoxemic respiratory failure J96.01 Acute exacerbation of CHF (congestive heart failure) I50.9 Chronic heart failure with preserved ejection fraction (HFpEF) I50.32 Heart failure chronicity: chronic Pulmonary hypertension I27.20 Pleural effusion J90
[2024-11-24 14:41] LABS: Appearance Pleural Fluid Cloudy; Color Pleural Fluid Yellow; RBC Pleural Fluid Auto 4000 /uL; Source Pleural Fluid Right Lung; WBC Pleural Fluid Auto 221 /uL
--- NOTE | 2024-11-24 22:59 | Electrocardiogram Report ---
Test Reason : Blood Pressure : */* mmHG Vent. Rate : 77 BPM Atrial Rate : * BPM P-R Int : * ms QRS Dur : 88 ms QT Int : 352 ms P-R-T Axes : * 116 1 degrees QTcB Int : 398 ms Atrial fibrillation Right axis deviation Right ventricular hypertrophy Septal infarct , age undetermined Nonspecific T wave abnormality Abnormal ECG When compared with ECG of 20-Nov-2024 01:04, ventricular-paced complexes are no longer Present Confirmed by Willian Guzamn ([id number]) on 11/24/2024 10:59:33 PM Referred By: REFERRED SELF Confirmed By: Willian Guzman
[2024-11-25 06:32] LABS: Hematocrit (blood only) 42.9 % (37.0-47.0); Hemoglobin 13.7 g/dl (12.0-16.0); Mean Corpuscular Hemoglobin 34.8 pg (25.0-34.0); Mean Corpuscular Volume 108.9 fL (80.0-100.0); Platelet Count 139 K/uL (130-400); RDW Standard Deviation 67.4 fL (36.4-46.3); Red Blood Count 3.94 M/uL (4.20-5.40); White Blood Count 5.34 K/ul (4.8-10.8)
[2024-11-25 06:51] LABS: Anion Gap 7.0 (3-11); Blood Urea Nitrogen 29.0 mg/dl (6-23); Calcium 8.9 mg/dl (8.6-10.3); Carbon Dioxide 41.0 mmol/L (21-32); Chloride 95.0 mmol/L (98-107); Creatinine Clr Calc Pharmacy 27.7 ml/min; Glucose 95.0 mg/dl (70-99(Fasting)); Potassium 3.9 mmol/L (3.5-5.1); Sodium 143.0 mmol/L (136-145)
[2024-11-25 07:00] LABS: Basophils, Fluid 1 %; Lymphocytes, Fluid 65 %; Mono,Macrophage,Mesothelial 17 %; Neutrophils, Fluid 17 %
[2024-11-25 07:38] VITALS: BP 116/73; RESP 17; TEMP 97.9
[2024-11-25] MEDS: BUMETANIDE 3 MG in SYRINGE 0 ML IV SCH (08:51)
--- NOTE | 2024-11-25 08:55 | Discharge Summary ---
Discharge Summary Date of Service November 25, 2024 Principal Dx & Hospital Course #1 = Principal Diagnosis (1) Heart failure with preserved ejection fraction: -on bumex 4mg IV BID -echo showing EF 65-70% with severe pulm HTN -thoracentesis with 1L fluid removed, f/u cytology -pulmonary following -cardiology consulted (2) Acute respiratory failure with hypoxia: -resolving (3) Pulmonary hypertension: -patient held sildenafil feeling it may have caused worsening CHF (4) Chronic venous insufficiency: (5) Recurrent pleural effusion: -thoracentesis today (6) Atrial fibrillation: Continue diltiazem Hold Eliquis in anticipation of thoracentesis today 11/24 (7) Adenocarcinoma, lung: -status post left upper lobe lobectomy in 2022 Treated by surgery No chemo or radiation was needed Plan This is an 84-year-old female with a history of HFpEF, recurrent right pleural effusion status post recurrent thoracentesis, lung adenocarcinoma status post lobectomy in 2022, paroxysmal atrial fibrillation on Eliquis, pulmonary hypertension who presents with shortness of breath,, hypoxia, leg swelling and chest x-ray shows that her right pleural fluid has reaccumulated. Admission HPI Per Admitting Provider This is an 84-year-old female with a history of lung adenocarcinoma status post left upper lobe lobectomy in 2022, HFpEF, paroxysmal atrial fibrillation on Eliquis, COPD, pulmonary hypertension, recurrent right pleural effusion status post recurrent thoracentesis, sick sinus syndrome status post pacemaker, hyperlipidemia who presented to the ER with shortness of breath and she checked her oxygen to be low in the 70s. This patient was recently discharged from the hospital on 11/20 after being admitted the same day, thoracentesis the same day. She says that she felt some relief after the thoracentesis but has been having worsening shortness of breath ever since. She says that she still had leg swelling on that day and did not feel like the fluid had come off of her. She was discharged on 3 mg p.o. Bumex twice daily which was her usual home dose but she decided to take 4 mg Bumex at night to see if that would help remove some of the fluid. Despite that, her legs stayed swollen and her breathing got worse. She is not short of breath at rest but with minimal exertion she gets short of breath and her oxygen level drops to the 70s. She has had multiple thoracentesis done so far and pleural fluid cytology has always been negative. She denied any fevers or chills, chest pain. She had a chest x-ray done that showed worsened right pleural effusion. Her BNP is mildly elevated at 378 which is lower than recent check 521. She was given 3 mg of IV Bumex in the emergency room. She is on 4 L of oxygen and at home she does not use any oxygen. Discharge Exam GENERAL APPEARANCE NAD, activity normal for age, well developed/ well nourished, no cyanosis, pallor, or diaphoresis. EYES lids/conjunctiva normal. EARS/NOSE/THROAT Mucous membranes moist, nares normal, lips/teeth normal uvula midline without oral pharyngeal erythema, exudate or swelling TMs normal bilaterally. No lymphangitis/lymphedema. HEAD/NECK normocephalic atraumatic, no facial trauma, neck is supple. RESPIRATORY respiratory effort normal, speaks in full sentences, no tripod position, no accessory muscle use. Lungs clear to auscultation without rhonchi, wheezes, rales CARDIAC Regular rate and rhythm, no edema. ABDOMINAL Soft, ND/NT. No evidence of fluid wave. No pulsatile masses on exam, rebound tenderness, Stout sign or pain over Mcburney's point. MUSCLES/EXTREMITIES No abnormal range of motion, no swelling. SKIN Warm, pink and dry. No rashes, dermatoses, petechiae or lesions. NEUROLOGICAL Speech is clear and appropriate. Normal level of consciousness. Gait and coordination are normal. 5/5 strength in all extremities. PSYCH Normal mood and affect. Judgement/competence is appropriate Discharge Plan Discharge Items Patient Disposition: Home - Self-Care Reason For Visit: SOB Discharge Diagnosis: pleural effusion Condition on Discharge: Serious Activity: Resume your previous activity Non-emergency contact: Primary Care Provider Call non-emergency contact if: you have any medication questions Follow-up/Referrals: Vilma Lopez MD [Primary Care Provider] - Diet: Regular Addtl Attending Provider Instructions: Follow up with PMD in 2 weeks Pending Studies at Discharge: No Stand-Alone Forms: My [employer], Smoking Cessation Medications and DC Order Prescriptions: Continued rosuvastatin 20 mg tablet 20 mg PO QPM Qty: 90 3RF Hold Instructions: trying pravastatin Eliquis 5 mg tablet 5 mg PO BID Qty: 60 5RF multivitamin Tablet 1 tab PO DAILY bumetanide 1 mg tablet 3 mg PO AMPM diltiazem HCl 120 mg capsule,extended release 24hr 240 mg PO QPM dapagliflozin propanediol [Farxiga] 10 mg tablet 10 mg PO QAM Discharge Orders: Discharge Order (Routine); Ordered 11/25/24 Ordered By: Trevor Deluca Admission Data Admit Date/Time: 11/22/24 17:44 Attending Provider: Trevor Deluca Admit Provider: Felicia Aguirre Primary Care Provider: Vilma Lopez Other Providers: Felicia Aguirre; Gurdeep Steward Hospital Stay Data Consultations 11/22/24 17:28 ED Decision to Admit Stat 11/22/24 20:13 Consult Pulmonology Routine Diagnostic Imagining Performed 11/24/24 IR thoracentesis wo tube US Routine 11/25/24 08:49 CT chest diagnostic wo con Routine Pending Results Patient Have Any Pending Studies at Discharge: No Discharge Instructions Given to Patient (Per Discharging Provider) Follow up with PMD in 2 weeks Total Time Total Time Spent Total Time Spent (In Minutes): 50 Coding Level of Care Code 50028 INP/OBS DISCH >30 MIN Diagnoses Chronic heart failure with preserved ejection fraction (HFpEF) I50.32 Heart failure chronicity: chronic Acute respiratory failure with hypoxia J96.01 Pulmonary hypertension I27.20 Chronic venous insufficiency I87.2 Recurrent pleural effusion J90 Atrial fibrillation I48.91 Atrial fibrillation type: unspecified Adenocarcinoma of lung, unspecified laterality C34.90 Laterality: unspecified laterality
[2024-11-25] MEDS ORDERED: APIXABAN 2.5 MG TAB PO SCH (09:00)
--- NOTE | 2024-11-25 09:54 | CT Scan Report ---
CT SCAN OF THE CHEST WITHOUT IV CONTRAST CLINICAL HISTORY: Pleural effusions COMPARISON STUDY: Chest x-ray dated 11/24/2024. Prior chest CT scans, most recently dated 09/12/2023. TECHNIQUE: CT scan of the thorax was performed from the thoracic inlet to the upper abdomen. Images are reviewed in the axial, sagittal, and coronal planes. IV contrast was not administered for this ex amination as per the referring clinician. A dose lowering technique was utilized adhering to the zhane Ramirez. CT DOSE: 184.57 mGy.cm FINDINGS: Thyroid: Enlarged and heterogeneous, typical for goiter. Thoracic aorta: There is advanced atherosclerotic calcification and mild ectasia of the abdominal art esteban. The distal arch measures up to 3.0 cm. The arch demonstrates standard 3-vessel anatomy. Heart: A pacemaker is seen in the left chest wall. The heart is enlarged noting a small pericardial e ffusion. Coronary arteries are densely calcified. The main pulmonary arteries are markedly dilated in dicating pulmonary artery hypertension. Lungs and pleural spaces: There is moderate emphysematous change. There are small to moderate right a nd trace left pleural effusions. Pleural thickening at the left lung base is similar to previous. A 5 .5 cm focus of masslike consolidation at the right lung base is new from 09/12/2023 and could represen t a round pneumonia or round atelectasis. Dependent consolidation at the left lung base likely repres ent atelectasis. Postsurgical and fibrotic change and architectural distortion in the anterior left u pper lobe is similar previous. There is mild bronchiectasis in this region. Scattered calcific granul omas are observed. The trachea and central airways are clear. Mediastinum: There is no mediastinal lymphadenopathy. Kaylie: Not well assessed without IV contrast. Axillae: There is no axillary lymphadenopathy. Upper abdomen: Partially visualized upper abdominal viscera is grossly unremarkable. Skeletal structures: The skeletal structures are osteopenic. Degenerative change and mild kyphoscolio sis is seen in the thoracic spine. Arthritic change is noted in the shoulders. No lytic or blastic [place] lesions are seen. IMPRESSION: 1. Emphysema with postsurgical change in the left upper lobe. 2. Marked cardiomegaly and cardiac pacemaker with evidence of pulmonary artery hypertension. 3. Small to moderate right and trace left pleural effusions. 4. A 5.5 cm focus of rounded masslike consolidation at the right lung base is new from 09/12/2023 and could represent round atelectasis or a round pneumonia. Clinical correlation will be required and rad iographic follow-up to resolution is recommended. 5. Consolidative change at the left lung base likely represents atelectasis. 6. Additional findings as above. ACT 112: Negative or not required by law. Electronically signed by: Dallas Dhillon M.D. 11/25/2024 9:52 AM
[2024-11-25] MEDS: APIXABAN 5 MG TABLET PO SCH (10:18)
[2024-11-25 10:22] VITALS: PULSE 82; O2SAT 95
--- NOTE | 2024-11-25 11:33 | Pulmonology Progress Note ---
Date of Service November 25, 2024 Assessment & Plan (1) Acute hypoxemic respiratory failure: (2) Acute exacerbation of CHF (congestive heart failure): (3) Heart failure with preserved ejection fraction: Heart failure chronicity: chronic Qualified Code(s): I50.32 - Chronic diastolic (congestive) heart failure (4) Pulmonary hypertension: (5) Pleural effusion: Plan PFT 08/04/2024 personally reviewed: Mild obstructive lung dysfunction, normal TLC, moderate decrease in DLCO FVC 2.0 L 98%, FEV1 1.37 L 92%, FEV1/FVC 69%, RV 83%, TLC 86%, RV/TLC ratio 43, DLCO 46%, DLCO/VA 71% 2D echo 06/21/2023: 60%, severe LA and RA dilation, mild elevation of pulmonary artery systolic pressure CT chest 11/24/2024: bilateral emphysematous changes, post left upper lobectomy stable changes. Small right pleural effusion with round consolidation in right lower lobe which could represent atelectasis. -- Acute hypoxic respiratory failure with bilateral pleural effusion Likely secondary to HFpEF with history of A-fib History of multiple right-sided thoracentesis in the past, last right-sided thoracentesis was 11/20/2024, 30% lymphocytes Presenting back 4 days from last thoracentesis for right pleural effusion. Cytologies have been negative BNP 378 --Pulmonary hypertension Likely type II Followed by cardiology in [place] Repeat TTE 11/23/2024 showed EF 65-70%, normal LV size and systolic function, dilated RV w/ grossly normal RV systolic function, RSVP 67. 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 -Additional spironolactone could be thought of -Thoracentesis completed 11/24/2024 with 1 liter of fluid removed from right side. -CT chest in 6 weeks with outpatient pulm follow up to assess right lower lobe consolidation. -2 step oxygen qualification ordered and patient qualified for oxygen. Care management working on setting up home O2. Admission and Anticipated Discharge Date Admission Date: November 22, 2024 Subjective "I feel good." "I am ready to go." Patient breathing improved post thoracentesis yesterday. Pleural fluid studies show borderline exudative effusion though this could be related to diuresis. Pleural fluid path pending. A CT chest was performed which showed small right pleural effusion with small round area in right lower lobe which could represent atelectasis v. other. Plan to repeat CT chest in 6 weeks with pulmonary clinic follow up. Review of Systems 2 Review of Systems: All systems reviewed & are unremarkable except as noted in HPI & below Physical Exam 2 Physical Exam: VITALS: Reviewed. WEIGHT/BMI reviewed. GEN: Age appropriate, well-developed, NAD. PSYCH: Good Judgment. AOx3. Normal memory, mood, and affect. HEENT -Head: NC/AT; -Eyes: PERRL, EOMI. No discharge or redn ess; -Ears: External ears are normal. -Nose: Normal nares. NECK: Supple, with no masses. CV: RRR, no m/r/g. LUNGS: Clear in b/l buper lobes with diminished b/l bases. Chest rise symmetrical. Breathing nonlabored. ABD: Soft, NT/ND, NBS, no masses or organomegaly. : N/A SKIN: Warm, well perfused. No skin rashes or abnormal lesions. MSK: No deformities, Normal gait. EXT: No clubbing, cyanosis, or edema. NEURO: Normal muscle strength and tone. No focal deficits. Results & Data Results & Data Vital Signs (Past 12 Hours) Vital Signs Temp Pulse Pulse Resp BP Pulse Ox Pulse Ox 11/25/24 10:21 36.6 C 82 17 116/73 95 11/25/24 09:45 73 11/25/24 09:10 11/25/24 08:00 90 11/25/24 07:37 36.6 C 82 17 116/73 95 11/25/24 03:17 36.5 C 77 16 111/75 92 11/25/24 00:00 94 11/24/24 23:42 36.4 C L 81 16 114/75 94 O2 Del Method O2 Del Method O2 Flow Rate O2 Flow Rate 11/25/24 10:21 11/25/24 09:45 11/25/24 09:10 Room Air 11/25/24 08:00 Room Air 11/25/24 07:37 Nasal Cannula 2 11/25/24 03:17 Nasal Cannula 2.0 11/25/24 00:00 Nasal Cannula 2 11/24/24 23:42 Nasal Cannula 2.0 Laboratory Results 11/25/24 05:24 11/25/24 05:24 Abnormal Lab Results 11/24/24 11/24/24 11/25/24 12:52 Unknown 05:24 WBC 5.34 RBC 3.94 L Hgb 13.7 Hct 42.9 MCV 108.9 H MCH 34.8 H MCHC 31.9 L RDW Std Deviation 67.4 H RDW Coeff of [place] 16.5 H Plt Count 139 MPV 9.9 Sodium 143 Potassium 3.9 Chloride 95 L Carbon Dioxide 41 H* Anion Gap 7 BUN 29 H Creatinine 1.10 Est Cr Clr Drug Dosing 27.7 eGFR 48.94 BUN/Creatinine Ratio 26.4 H Glucose 95 Calcium 8.9 Magnesium 2.3 Fluid Neutrophils % 17 Fluid Lymphocytes % 65 Fluid Basophils % 1 Fluid [place] % 17 Fluid Comment Pleural Fluid Source Right Lung Pleural Color Yellow Pleural Appearance Cloudy Pleural WBC (Auto) 221 Pleural RBC (Auto) 4000 Pleural Total Protein < 3.0 Pleural LDH 155 Pleural Glucose [address] 11/25/24 08:49 CT SCAN OF THE CHEST WITHOUT IV CONTRAST CLINICAL HISTORY: Pleural effusions COMPARISON STUDY: Chest x-ray dated 11/24/2024. Prior chest CT scans, most recently dated 09/12/2023. TECHNIQUE: CT scan of the thorax was performed from the thoracic inlet to the upper abdomen. Images are reviewed in the axial, sagittal, and coronal planes. IV contrast was not administered for this examination as per the referring clinician. A dose lowering technique was utilized adhering to the principles of ALARA. CT DOSE: 184.57 mGy.cm FINDINGS: Thyroid: Enlarged and heterogeneous, typical for goiter. Thoracic aorta: There is advanced atherosclerotic calcification and mild ectasia of the abdominal artery. The distal arch measures up to 3.0 cm. The arch demonstrates standard 3-vessel anatomy. Heart: A pacemaker is seen in the left chest wall. The heart is enlarged noting a small pericardial effusion. Coronary arteries are densely calcified. The main pulmonary arteries are markedly dilated indicating pulmonary artery hypertension. Lungs and pleural spaces: There is moderate emphysematous change. There are small to moderate right and trace left pleural effusions. Pleural thickening at the left lung base is similar to previous. A 5.5 cm focus of masslike consolidation at the right lung base is new from 09/12/2023 and could represent a round pneumonia or round atelectasis. Dependent consolidation at the left lung base likely represent atelectasis. Postsurgical and fibrotic change and architectural distortion in the anterior left upper lobe is similar previous. There is mild bronchiectasis in this region. Scattered calcific granulomas are observed. The trachea and central airways are clear. Mediastinum: There is no mediastinal lymphadenopathy. Kaylie: Not well assessed without IV contrast. Axillae: There is no axillary lymphadenopathy. Upper abdomen: Partially visualized upper abdominal viscera is grossly unremarkable. Skeletal structures: The skeletal structures are osteopenic. Degenerative change and mild kyphoscoliosis is seen in the thoracic spine. Arthritic change is noted in the shoulders. No lytic or blastic bony lesions are seen. IMPRESSION: 1. Emphysema with postsurgical change in the left upper lobe. 2. Marked cardiomegaly and cardiac pacemaker with evidence of pulmonary artery hypertension. 3. Small to moderate right and trace left pleural effusions. 4. A 5.5 cm focus of rounded masslike consolidation at the right lung base is new from 09/12/2023 and could represent round atelectasis or a round pneumonia. Clinical correlation will be required and radiographic follow-up to resolution is recommended. 5. Consolidative change at the left lung base likely represents atelectasis. 6. Additional findings as above. ACT 112: Negative or not required by law. Electronically signed by: Dallas Dhillon M.D. 11/25/2024 9:52 AM PG Care Time/CCT Total # of Minutes Spent Total Time Spent with Patient: Total time spent is greater than 50% in coordination of care (as documented) at patient's floor/unit and/or counseling patient: Coding Level of Care Code 09213 SUB INP/OBS CARE 2/35MIN Diagnoses Acute hypoxemic respiratory failure J96.01 Acute exacerbation of CHF (congestive heart failure) I50.9 Chronic heart failure with preserved ejection fraction (HFpEF) I50.32 Heart failure chronicity: chronic Pulmonary hypertension I27.20 Pleural effusion J90
== END 2024-11-25 12:56 | disposition home or self-care (01) | DRG 291 ==
LOC: SUATTDRO → ED 15:37 → SUATTDRO 17:44 → 2E 17:44